=== PATIENT | male | born 1940 | race Caucasian/White ===

== ENCOUNTER 2017-12-15 16:41 | Inpatient (IN) | payer MEDICARE, OTHER ==
[~2017-12-15] VITALS: Ht 185.4 cm; Wt 76.7 kg
[~2017-12-15 16:41] MED LIST: ACARBOSE100 MG PO; ALLOPURINOL100 MG PO; AMIODARONE HCL200 MG PO; ASPIRIN81 MG PO; ATORVASTATIN CA20 MG PO; CALCITRIOL0.25 MCG PO; CATAPRES-TTS 21 EACH PO; CENTRUM SILVER1 EAC1 PO; CINNAMON500 MG PO; CLONIDINE HCL0.1 MG PO; CLONIDINE HCL0.2 MG PO; COQ-10100 MG PO; CoQ10 PO; DIALYVITE TABL1 EACH PO; DIGOXIN125 MCG PO; DILTIAZEM ER240 MG PO; DULCOLAX10 MG PR; FERROUS SULFAT325 MG PO; FLAXSEED OIL1000 MG PO; FLUOROURACIL 5% TOP; FUROSEMIDE20 MG PO; GABAPENTIN100 MG PO; GABAPENTIN300 MG PO; GLIPIZIDE10 MG PO; GLYBURIDE5 MG PO; HYDRALAZINE HC100 MG PO; HYDRALAZINE HCL25 MG PO; HYDROCODON-ACE1 EAC9 PO; ISOSORBIDE DINI20 MG PO; LACTULOSE20 GM/30 M PO; LANTUS100 UNIT/1 SQ; LANTUS100 UNITS/ SC; LEVEMIR100 UNIT/1 SC; LEVEMIR100 UNIT/1 SQ; LEVODOPA PO; LISINOPRIL5 MG PO; MECLIZINE HCL12.5 MG PO; METAMUCIL1 EACH; METOPROLOL TART25 MG PO; METOPROLOL TART50 MG PO; MINOXIDIL2.5 MG PO; MIRALAX17 GM PO; NIFEDIPINE XL30 MG PO; NYSTATIN15 G2 TP; OMEGA 3 FISH O1 EACH PO; PANTOPRAZOLE SO40 MG PO; PLAVIX300 MG PO; PLAVIX75 MG PO; PRIMIDONE50 MG PO; PROBIOTIC COMP1 EAC1 PO; RENAGEL800 MG PO; VITAMIN C500 MG PO; VITAMIN D-32000 UNIT PO; VOLTAREN100 GM TOP; ZINC OXIDE56.7 GM TP
--- OUTSIDE RECORDS SUMMARY | 2017-12-15 16:45 | XMS REPORT ---
Author [facility] Address Unknown Phone Unavailable Care Team Providers Care Form [employer] Forms Name Role Phone VALE GARCIA Unavailable Unavailable OSCAR DEVLIN Unavailable Unavailable Problems This patient has no known problems. Allergies, Adverse Reactions, Alerts This patient has no known allergies or adverse reactions. Medications This patient has no known medications. Results Test Description Test Time Test Comments Text Results Atomic Results Result Comments CHEST SINGLE (PORTABLE) [place] [address] Patient Name: MAXI ROOT MR #: [id number] : 1940 Age/Sex: 77/M Req #: [id number] [facility] Physician: Ordered by: VALE GARCIA MD Report #: [id number] Location: OR Room/Bed: Procedure: [id number] DX/CHEST SINGLE (PORTABLE) Exam Date: 09/09/17 Exam Time: 1005 REPORT STATUS: Signed PROCEDURE: CHEST SINGLE (PORTABLE) TECHNIQUE: Portable AP chest INDICATION: Preoperative evaluation COMPARISON: [facility], , CHEST 2 VIEWS, 06/30/2017, 20:29. FINDINGS: Right subclavian dialysis catheter tips in the SVC. No sizable pleural effusions. Bilateral interstitial opacity with central vascular enlargement and cardiomegaly. Intact skeleton. Right upper extremity amputation. CONCLUSION: Cardiomegaly and mild interstitial edema. Dictated by: Soila Floyd M.D. on 09/09/2017 at 10:29 Electronically approved by: Soila Floyd M.D. on 09/09/2017 at 10:29 Dictated By: SOILA FLOYD MD 1029 Transcribed By: SUZIE on 09/09/17 1029 COPY TO: VALE GARCIA MD CTA ABD/PELVIS [facility] [address] [place] [address] Patient Name: MAXI ROOT MR #: [id number] : 1940 Age/Sex: 77/M Req #: [id number] Adm Physician: OSCAR DEVLIN MD Ordered by: OSCAR DEVLIN MD Report #: [id number] Location: ICU Room/Bed: ICU [facility] Procedure: [id number] CT/CTA ABD/PELVIS Exam Date: 07/07/17 Exam Time: 1545 REPORT STATUS: Signed PROCEDURE: CTA ABD/ PELVIS WITH CONTRAST COMPARISON: [facility], CT, CT ABDOMEN/ PELVIS W, 06/17/2017, 16:10. INDICATIONS: ISCHEMIC BOWEL TECHNIQUE: Multi-detector CT spiral images were obtained after the administration of 60 intravenously. For optimization of anatomic evaluation, multiplanar and volume rendering reconstructions were performed. Advanced 3-D off-line postprocessing were performed on a dedicated stand-alone workstation under the direct supervision of the interpreting physician. DLP: 520.33 mGy-cm FINDINGS: Aortic Measurements at the level of the: Diaphragmatic hiatus: 2.6 cm Celiac axis: 2.3 cm Superior Mesenteric Artery: 2.2 cm Renal Arteries: 2.1 cm Above the iliac bifurcation: 1.0 cm There is moderate circumferential calcified plaque throughout most of the abdominal aorta. The largest calcified plaque is seen. The right common iliac artery, causing approximately 40% luminal reduction (series 3, image 105). There is no aortic aneurysm or dissection. The celiac, superior mesenteric, inferior mesenteric, and renal arteries are patent, without filling defects . Mild calcified atherosclerotic plaque proximal SMA (sagittal image 82) without significant narrowing. Focal atherosclerotic plaque in the mid to distal SMA (series 3, image 79 and sagittal image 8), results in approximately 25-30 % luminal reduction. Mild to moderate atherosclerotic plaque at the origin of the right renal, which results in 50% luminal reduction (series 3, image 63, and coronal image 51) area. Mild atherosclerotic plaque at the origin of the left renal artery, with likely greater than 50% reduction at the ostium. Pelvic vessels: Right common iliac calcified plaque results in 50% luminal reduction (series 3, image 105) . Bilateral common iliacs, external, and internal iliacs are patent. Prominent calcified plaque in the left external iliac (series 3, image 176), which results in at least 50% luminal reduction. Right common iliac artery: 1.4 cm Left common iliac artery: 1.2 cm Abdominal and Pelvic soft-tissues and organs: Lung bases: Unchanged small to moderate bilateral pleural effusions and compressive atelectasis of the lower lobes. Stable cardiomegaly with enlargement of the right atrium. Liver: No focal lesions. Normal contour. Biliary: No biliary ductal dilation. Gallbladder is decompressed. Spleen: No splenomegaly. Pancreas: No ductal dilation or focal lesions. Adrenal Glands: Stable bilateral thickening. Kidneys: No hydronephrosis or obstruction. No stones or solid, enhancing lesions GI: Persistent moderate wall thickening of approximately 5-6 cm segment of the ascending colon at the hepatic flexure with questionable shouldering (series 3, images 57-69 and coronal image 30), with mild surrounding stranding. No bowel dilation. Rest of the bowel shows no wall thickening. Peritoneum/ Retroperitoneum: Interval decrease in abdominal free fluid. There is residual fluid inferior to the right hepatic lobe and lateral to the above- described segment of colon (for example series 3, image 77 and coronal image 31), as well as in the perihepatic space (series 3, image 25, and trace fluid in the anterior and posterior pelvis (series 3, image 151 and 161). Pelvic organs: Bladder is decompressed and grossly unremarkable. Prostate is enlarged. Bones: No acute bony abnormalities. CONCLUSION: 1. Moderate circumferential calcified plaque throughout most of the abdominal aorta and iliac vessels. Aorta, celiac trunk, SMA, VENECIA,, bilateral renal, and pelvic arteries are patent. The focal plaque in the mid to distal SMA results in approximately 25-30 % luminal reduction, however, the vessel remains patent. 2. Findings in the ascending colon at the hepatic flexure are worrisome for underlying neoplasm (such as adenocarcinoma), rather than ischemic bowel given the focal findings and short segment involvement, as well as patency of the major vessels. Inflammatory or infectious colitis are also less likely given the short segment involvement and patient's age (for inflammatory bowel disease). Recommend colonoscopy for further evaluation. 3. Stable small to moderate bilateral pleural effusions and compressive atelectasis of the lower lobes. Stable cardiomegaly. Kwaku Mcgregor M.D. Dictated by: Kwaku Mcgregor M.D. on 07/07/2017 at 17:07 Electronically approved by: Kwaku Mcgregor M.D. on 07/07/2017 at 17 :07 Dictated By: KWAKU MCGREGOR MD 06 Transcribed By: SUZIE on 07/07/171706 COPY TO: OSCAR DEVLIN MD ABDOMEN LIMITED [place] [address] Patient Name: MAXI ROOT MR #: [id number] : 1940 Age/Sex: 77/M Req # : [id number] Adm Physician: OSCAR DEVLIN MD Ordered by: OSCAR DEVLIN MD Report #: [id number] Location: MED/SURG3 Room/Bed: [facility] _ Procedure: [id number] US/US ABDOMEN LIMITED Exam Date: Exam Time: REPORT STATUS: Signed PROCEDURE: LIMITED ABDOMINAL ULTRASOUND COMPARISON: CT scan of the abdomen and pelvis dated 06/30/2017 INDICATIONS: Ascites FINDINGS: Survey study to evaluate prior to an ordered paracentesis. There is a minimal amount of free fluid in the abdomen. Amount does not warrant a paracentesis at this time. CONCLUSION: Minimal ascites. Sofía Benjamin D.O. Dictated by: Sofía Benjamin D.O. on 07/01/2017 at 13:06 Electronically approved by: Sofía Benjamin D.O. on 07/01/2017 at 13:06 Dictated By: SOFÍA BENJAMIN DO 1306 Transcribed By: SUZIE on 07/01/17 1306 COPY TO: OSCAR DEVLIN MD CHEST 2 VIEWS [place] [address] Patient Name: MAXI ROOT MR #: [id number] : 1940 Age/Sex: 77/M Req #: [id number] Adm Physician: OSCAR DEVLIN MD Ordered by: VALE MELENDEZ MD Report #: [id number] Location: [facility] Room/Bed: [facility] Procedure: [id number] DX/CHEST 2 VIEWS Exam Date: 06/30/17 Exam Time: 2019 REPORT STATUS: Signed EXAMINATION: CHEST 2 VIEWS INDICATION: Shortness of breath COMPARISON: 2016 FINDINGS: TUBES and LINES: Right IJ central line catheter is stable in good position with tip overlying the atrial caval junction. New left IJ dual-lumen dialysis catheter with tip overlying the atriocaval junction. LUNGS: Lungs are not well inflated. There are bibasilar atelectasis. There is perihilar interstitial opacities, consistent with interstitial edema. PLEURA: Small bilateral pleural effusions right greater than left. HEART AND MEDIASTINUM: Cardiac size is moderately enlarged. The aorta is ectatic with atherosclerotic calcifications. BONES AND SOFT TISSUES: No acute osseous lesion. Soft tissues are unremarkable. UPPER ABDOMEN: No free air under the diaphragm. IMPRESSION: Findings are compatible with fluid overload/pulmonary edema and pleural effusions. Signed by: Dr. Raji Steinberg M.D. on 06/30/2017 9:16 PM Dictated By: RAJI HUTCHISON MD 15 Transcribed By: VEENA on 06/30/172115 COPY TO: VALE MELENDEZ MD CT ABDOMEN/PELVIS WO [place] [address] Patient Name: MAXI ROOT MR #: [id number] : 1940 Age/Sex: 77/M Req # : [id number] Adm Physician: OSCAR DEVLIN MD Ordered by: OSCAR DEVLIN MD Report #: [id number] Location: MED/SURG3 Room/Bed: [facility] _ Procedure: [id number] CT/CT ABDOMEN/PELVIS WO Exam Date: 06/30/17 Exam Time: 2099 REPORT STATUS: Signed EXAM: CT Abdomen and Pelvis WITHOUT contrast INDICATION: Suspected peritonitis COMPARISON: 06/17/2017 TECHNIQUE: Abdomen and pelvis were scanned utilizing a multidetector helical scanner from the lung base to the pubic symphysis without administration of IV contrast. Absence of intravenous contrast decreases sensitivity for detection of focal lesions and vascular pathology. Coronal and sagittal reformations were obtained. Routine protocol was performed. IV CONTRAST: None. ORAL CONTRAST: Gastrografin RADIATION DOSE: Total DLP: 691.7 mGy*cm Estimated effective dose: (DLP x 0.015 x size factor) mSv COMPLICATIONS: None FINDINGS: LINES and TUBES: Interval removal of peritoneal dialysis catheter LOWER THORAX: Interval increase in right pleural effusion. Stable left pleural effusion. Increased confluent airspace opacity in the right lower lobe compatible with developing pneumonia on a background of atelectasis. Extensive three-vessel coronary artery disease HEPATOBILIARY: No focal hepatic lesions. No biliary ductal dilation. GALLBLADDER: No radio-opaque stones or sludge. No wall thickening. SPLEEN: No splenomegaly. PANCREAS: No focal masses or ductal dilatation. ADRENALS: Bilateral adrenal hyperplasia is stable left greater than right. KIDNEYS/URETERS: No hydronephrosis. No cystic or solid mass lesions. No stones. GI TRACT: No abnormal distention, wall thickening, or evidence of bowel obstruction. Appendix is not clearly identified. There is however no fat stranding or adenopathy in the right lower quadrant to suggest appendicitis. PELVIC ORGANS/BLADDER: Unremarkable. LYMPH NODES: No lymphadenopathy. VESSELS: There is severe atherosclerotic disease in the aorta and major arterial branches. PERITONEUM / RETROPERITONEUM: There is stable, moderate of amount of free fluid in the abdomen and pelvis. BONES: There are stable degenerative changes in the lumbar spine. SOFT TISSUES: There is mild diffuse anarsarca. IMPRESSION: 1. Interval removal of peritoneal dialysis catheter. 2. No significant interval change in volume of ascites, pleural effusions and mild anasarca consistent with fluid overload. 3. Coronary artery disease. 4. Mild adrenal hyperplasia bilaterally Signed by: Dr. Raji Steinberg M.D. on 06/30/2017 9:30 PM Dictated By: RAJI HUTCHISON MD 29 Transcribed By: VEENA on 06/30/172129 COPY TO: OSCAR DEVLIN MD
[2017-12-15 17:36] LABS: BASOPHILS % 0.2 % (0.0-1.0); EOSINOPHILS # (AUTO) 0.3 (0.0-0.4); EOSINOPHILS % 2.4 % (0.0-6.0); HEMATOCRIT 23.7 % (38.2-49.6); LYMPHOCYTES # (AUTO) 0.7 (1.0-3.2); LYMPHOCYTES % 6.2 % (18.0-39.1); MEAN CORPUSCULAR HEMOGLOBIN 31.9 pg (28-32); MEAN CORPUSCULAR HGB CONC 31.6 g/dL (31-35); MEAN CORPUSCULAR VOLUME 100.9 fL (81-99); MONOCYTES # (AUTO) 0.7 (0.2-0.8); MONOCYTES % 6.8 % (4.4-11.3); NEUTROPHILS # (AUTO) 9.1 (2.1-6.9); PLATELET COUNT 350 x10e3/uL (140-360); RED BLOOD COUNT 2.35 x10e6/uL (4.3-5.7); RED CELL DISTRIBUTION WIDTH 17.2 % (11.7-14.4)
[2017-12-15 17:38] LABS: HEMOGLOBIN 7.5 g/dL (14.0-18.0)
[2017-12-15 17:42] LABS: INR 0.9; PROTHROMBIN TIME 12.6 seconds (11.9-14.5)
[2017-12-15 17:43] LABS: PARTIAL THROMBOPLASTIN TIME 33.1 seconds (23.8-35.5)
--- NOTE | 2017-12-15 17:44 | Diagnostic Imaging Report ---
PROCEDURE: A single AP view of the chest. COMPARISON: Chest radiograph 09/09/2017 INDICATIONS: COUGH, CONGESTION FINDINGS: Lines/tubes: Stable right subclavian dialysis catheter. Lungs: The lungs are well inflated. Bilateral interstitial opacities and central vascular congestion. Pleura: There is no pleural effusion or pneumothorax. Heart and mediastinum: Stable cardiomegaly allowing for differences in lung volumes. Diffuse aortic calcifications. Bones: No acute bony abnormality. Calcific density projecting adjacent to the left humeral head likely represents rotator cuff calcific tendinosis. Appearance of the right humeral head likely related to amputation which is currently out of the field of view. IMPRESSION: Cardiomegaly with mild interstitial edema. Dictated by: Man Tejada M.D. on 12/15/2017 at 17:53 Electronically approved by: Man Tejada M.D. on 12/15/2017 at 17:53
[2017-12-15 17:53] LABS: ALBUMIN 3.1 g/dL (3.5-5.0); ALBUMIN/GLOBULIN RATIO 0.7 (0.8-2.0); CALCIUM 8.5 mg/dL (8.4-10.2); CREATININE, SERUM 3.57 mg/dL (0.72-1.25)
[2017-12-15 18:00] LABS: CREATINE KINASE MB 2.7 ng/mL (0.00-5.00)
[2017-12-15] MEDS ORDERED: VANCOMYCIN 1GM/NS 250 ML 250 ML IV ONE (18:30)
[2017-12-15] MEDS ORDERED: SODIUM CHLORIDE FLUSH 10 ML SYR INJ PRN (18:45)
[2017-12-15] MEDS ORDERED: ONDANSETRON HCL INJ 2 MG/ML VIAL IV PRN (18:45)
[2017-12-15] MEDS ORDERED: IBUPROFEN 600 MG TAB PO PRN (18:45)
[2017-12-15] MEDS: ACETAMINOPHEN 325 MG TAB PO PRN (18:55)
--- NOTE | 2017-12-15 20:29 | Diagnostic Imaging Report ---
EXAMINATION: CT scan of the chest without contrast. TECHNIQUE: Spiral CT images of the chest were performed from the lung apices to the level of the adrenal glands. No intravenous contrast was administered . Coronal and sagittal reformatted images were obtained. COMPARISON: Chest 2 views, 06/30/2017 CLINICAL HISTORY:Cough and fever, shortness of breath, weakness, history of pulmonary edema DISCUSSION: ABSENCE OF INTRAVENOUS CONTRAST DECREASES SENSITIVITY FOR DETECTION OF FOCAL LESIONS AND VASCULAR PATHOLOGY. LINES/TUBES: Double lumen right subclavian catheter with distal tip in the distal SVC. LUNGS AND AIRWAYS: Bilateral lower lobe compressive atelectasis, left greater than right. 5 mm mildly spiculated nodular lesion in the right upper lobe (series 3, image 36). No new pulmonary nodules. No masses or consolidation. Airways are clear, without bronchial lesions. PLEURA: Small bilateral pleural effusions, left greater than right. HEART AND MEDIASTINUM: Thyroid is unremarkable. Moderate cardiomegaly. Extensive atherosclerotic calcification of the aortic valves, coronary arteries and thoracic aorta. Aorta is nonaneurysmal. Main pulmonary artery is enlarged, measuring 3.4 cm LYMPH NODES: There is no mediastinal, hilar or axillary lymphadenopathy. ABDOMEN: Limited nonenhanced views of the upper abdomen show no abnormality within the visualized liver, spleen, pancreas. Thickening of the left adrenal gland without discrete focal lesions. BONES AND SOFT TISSUES: No aggressive lytic lesions. Degenerative disc changes in the thoracic spine. Soft tissues grossly unremarkable. IMPRESSION: 1. Small bilateral pleural effusions, left greater than right with associated bilateral lower lobe compressive atelectasis. In the setting of moderate cardiomegaly, this may be secondary to CHF. No overt pulmonary edema. 2. 5 mm indeterminate nodular lesion in the right upper lobe with likely higher risk of bronchogenic neoplasm given its spiculated appearance. Recommend follow-up chest CT in 3-6 months to document stability. Signed by: Dr. Avila Mcgregor M.D. on 12/15/2017 8:26 PM
[2017-12-15] MEDS ORDERED: NITROGLYCERIN0.4 MG SL (20:37)
[2017-12-15] MEDS ORDERED: PLAVIX75 MG PO (20:37)
[2017-12-15] MEDS ORDERED: PANTOPRAZOLE SO40 MG PO (20:37)
[2017-12-15] MEDS ORDERED: CARVEDILOL12.5 MG PO (20:37)
[2017-12-15] MEDS ORDERED: CLONIDINE HCL0.1 MG PO (20:37)
[2017-12-15] MEDS ORDERED: ASPIRIN EC81 MG PO (20:37)
[2017-12-15 22:05] VITALS: BP 143/59
[2017-12-15 22:20] VITALS: BP 143/62
[2017-12-16 01:31] VITALS: BP 143/62
[2017-12-16 04:00] VITALS: BP 180/82
[2017-12-16] MEDS ORDERED: SODIUM CHLORIDE 0.9% 250ML 250 ML IV ONE (06:00)
[2017-12-16] MEDS: CARVEDILOL 12.5 MG TAB PO SCH ×2 (06:20→17:00)
[2017-12-16] MEDS: CLONIDINE HCL 0.1 MG TAB PO SCH ×3 (06:25→22:00)
[2017-12-16] MEDS ORDERED: FUROSEMIDE INJ 10 MG/ML 4 ML VIAL IV STA (06:30)
[2017-12-16 07:10] LABS: BASOPHILS % 0.2 % (0.0-1.0); EOSINOPHILS # (AUTO) 0.2 (0.0-0.4); EOSINOPHILS % 1.1 % (0.0-6.0); HEMATOCRIT 26.1 % (38.2-49.6); HEMOGLOBIN 8.2 g/dL (14.0-18.0); LYMPHOCYTES # (AUTO) 4.2 (1.0-3.2); LYMPHOCYTES % 23.2 % (18.0-39.1); MEAN CORPUSCULAR HEMOGLOBIN 31.9 pg (28-32); MEAN CORPUSCULAR HGB CONC 31.4 g/dL (31-35); MEAN CORPUSCULAR VOLUME 101.6 fL (81-99); MONOCYTES # (AUTO) 1.8 (0.2-0.8); MONOCYTES % 9.7 % (4.4-11.3); NEUTROPHILS # (AUTO) 11.9 (2.1-6.9); NEUTROPHILS % 65.2 % (38.7-80.0); PLATELET COUNT 468 x10e3/uL (140-360); RED BLOOD COUNT 2.57 x10e6/uL (4.3-5.7); RED CELL DISTRIBUTION WIDTH 17.7 % (11.7-14.4)
[2017-12-16 07:33] LABS: ALBUMIN 3.3 g/dL (3.5-5.0); ALBUMIN/GLOBULIN RATIO 0.7 (0.8-2.0); ANION GAP 18.6 mmol/L (8-16); CALCIUM 9.3 mg/dL (8.4-10.2); CREATININE, SERUM 5.14 mg/dL (0.72-1.25); POTASSIUM 4.6 mmol/L (3.5-5.1)
[2017-12-16 07:57] VITALS: BP 142/51
[2017-12-16] MEDS: HYDRALAZINE HCL 25 MG TAB PO SCH ×3 (08:00→21:00)
[2017-12-16] MEDS ORDERED: CARVEDILOL 12.5 MG TAB PO SCH (09:00)
[2017-12-16] MEDS ORDERED: CLONIDINE HCL 0.1 MG TAB PO SCH ×2 (09:00→14:00)
[2017-12-16] MEDS: INSULIN REGULAR, HUMAN 100 UNIT/1 ML 3ML VIAL SQ SCH ×4 (09:48→21:00)
--- NOTE | 2017-12-16 10:57 | Consultation ---
DATE OF CONSULTATION: INFECTIOUS DISEASE CONSULTATION This patient is well known to infectious disease. He is a 77-year-old male on hemodialysis, apparently has not been feeling good for the past couple of days. He has been congested with some cough. He had dialysis yesterday. After dialysis, he really felt weak and diaphoretic and lethargic. He apparently called Dr. Preciado's office. On brief visit with Dr. Preciado, he was given some oral antibiotics. However, he came in last night secondary to worsening of his weakness. He had a gram of vancomycin since admission. He feels better now this morning after I visited with him. is in the room. Most of this information was provided by the . PAST MEDICAL HISTORY: Includes end-stage renal disease. He is on dialysis. He has a history of GI bleed, multiple hospitalizations with history of colitis, diabetes. He was on peritoneal dialysis at some point. It got infected and it was removed. ALLERGIES: HE HAS NO DRUG ALLERGIES. LABORATORY STUDIES: As mentioned above, the patient is on dialysis. His white count is 18.17, hemoglobin 8.2 and platelets are 468,000. Influenza A and B screen antigen was negative. His AST was 22, ALT 25, ALP 128. CK-MB was 2.7. Troponin I was 0.056. RADIOLOGY STUDIES: Had a chest x-ray which suggested cardiomegaly with a mild interstitial edema. He had a CT of the chest, which showed small bilateral pleural effusion, left greater than the right associated with bilateral lower lobe compressive atelectasis. CHF was one of the concerns in the differential. CT of the chest with no significant pulmonary edema. He has a 5 mm indeterminate nodule lesion in the right upper lobe with likely high risk for bronchiogenic neoplasm. MICROBIOLOGY: Blood culture is pending. MEDICATIONS: Have been reviewed. As far as the infectious disease point of view, had a gram of vancomycin on admission. Concerned that the patient is on dialysis. REVIEW OF SYSTEMS: Feels better since he said he got good sleep. Diaphoresis is much better. He complains that his blood pressure was up a little bit, but it got improved after the medication was given. No nausea, vomiting, fever, chills, chest pain, or shortness of breath. PHYSICAL EXAMINATION VITALS: Temperature 97.7, maximum temp was 100.3 this admission, pulse 103, respirations 24, blood pressure 142/51. GENERAL: Comfortable, alert and oriented times 3 in bed. Very pleasant. CV: S1 and S2. CHEST: Equal expansion. No acute distress. Decreased breath sounds. ABDOMEN: Soft and nontender. Bowel sounds positive in 4 quadrants. No distention. HEENT: Moist. Not pale. No cyanosis. EXTREMITIES: Moves all. No significant edema noted. ASSESSMENT AND PLAN: A 77-year-old male with complicated past medical history and not feeling well the past 2-3 days with congestion and weakness. Already had a gram of vancomycin. Restart cefepime. Allergies noted. The patient is supposed to get another round of dialysis today. Monitor the patient throughout the hospitalization. His white count is up a little bit. Will recheck for tomorrow. He is going to be on vancomycin and cefepime until we get more information, and then will taper the antibiotics as more information comes in. This case was discussed with Dr. Robledo in detail as outlined. I want to thank you for this consult. DICTATED BY MIRIAM HODGES Job#: [id number] MANDY
[2017-12-16 11:59] VITALS: BP 121/83
[2017-12-16] MEDS: CEFEPIME HCL 1 GM VIAL IV SCH (12:00)
[2017-12-16] MEDS ORDERED: VANCOMYCIN 750MG/NS 150ML IVPB 150 ML IV SCH (12:00)
[2017-12-16] MEDS ORDERED: MECLIZINE HCL 12.5 MG TAB PO PRN (13:45)
[2017-12-16] MEDS ORDERED: NITROGLYCERIN 0.4 MG SUBL SL PRN (13:45)
[2017-12-16] MEDS ORDERED: INULIN PO SCH (15:00)
[2017-12-16] MEDS: LACTOBACILLUS ACIDOPHILUS CAPSULE PO SCH ×2 (15:00→21:30)
[2017-12-16] MEDS: GABAPENTIN 100 MG CAP PO SCH ×2 (15:00→21:00)
[2017-12-16] MEDS: METOPROLOL TARTRATE 25 MG TAB PO SCH ×2 (15:00→21:00)
[2017-12-16] MEDS ORDERED: FOS PO SCH (15:00)
[2017-12-16] MEDS ORDERED: LACTOBACILLUS CMB PO SCH (15:00)
[2017-12-16] MEDS ORDERED: [UNRECOGNIZED DRUG - OTHER] PO SCH (15:00)
--- NOTE | 2017-12-16 15:05 | History and Physical ---
PRIMARY CARE PHYSICIAN: Dr. Orion Preciado. CHIEF COMPLAINT: Increasing shortness of breath, pulmonary edema, fever, chills and generalized weakness. HISTORY OF PRESENT ILLNESS: Patient is a 77-year-old male baseline chronically ill with end-stage renal disease on dialysis. Patient also has systolic dysfunction congestive heart failure. He came to the office a few days ago with increasing shortness of breath, fever and bronchitis. Patient basically was given antibiotics and subsequently went home. The patient did not improve. As a matter of fact, at dialysis, the patient was having increasing shortness of breath even post dialysis. He developed fever. Subsequently he went to the emergency room. Here, the patient also has fever as well. Chest x-ray showed pulmonary edema. The patient is otherwise stable with some dialysis but increasing shortness of breath, fever and chills. PAST MEDICAL HISTORY 1. Diabetes, type 2, on insulin therapy. 2. End-stage renal disease on dialysis. 3. Hypertension. 4. History of ischemic colitis. 5. History of peritonitis that was resolved. 6. Chronic hypertension. 7. Congestive heart failure. 8. History of right knee surgery. 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 10. Bilateral carotid and left femoral artery intervention. 11. Dialysis catheter placement. 12. Parkinson syndrome. 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 14. Benign tremor. 15. Diabetic neuropathy. 16. Peripheral vascular disease. 17. Hyperlipidemia. 18. Atrial fibrillation. SOCIAL HISTORY: The patient lives with his spouse. He does not smoke or use alcohol. He has very good family support. ALLERGIES: NO KNOWN ALLERGIES. HOME MEDICATIONS: Amiodarone, aspirin, Lipitor, calcitriol, Coreg, clonidine, Plavix, digoxin, gabapentin, hydralazine, insulin, isosorbide dinitrate, metoprolol, nifedipine, Protonix, primidone, levodopa. PHYSICAL EXAMINATION GENERAL EXAM: The patient is ill but not in any distress. VITAL SIGNS: Temperature T-max was 100.3, blood pressure 118/55. Pulse rate is 86. Respirations 22. HEENT: Normocephalic, atraumatic, anicteric. NECK: Supple grossly. PULMONARY: Diminished breath sounds bilaterally with coarses and rales. CARDIOVASCULAR: Atrial fibrillation, rate controlled. ABDOMEN: Soft. EXTREMITIES: No gross cyanosis. Positive edema. NEUROLOGIC: No focal deficit other than chronic tremor and functional dementia. LABS: WBC is 18, hemoglobin 8.2, hematocrit 26, platelets 468. Chemistries: Sodium is 136, potassium 4, chloride 98, bicarb 27,BUN is 34, creatinine 3.5. Glucose 191. BNP is 1216. Coagulation is normal. Influenza A and B are negative. IMAGING: CT chest showed the patient has bilateral pleural effusions, left greater than right, with atelectasis. Moderate cardiomegaly. Pulmonary edema. IMPRESSION 1. [id number] systolic dysfunction congestive heart failure. 2. Pulmonary edema. 3. Community-acquired pneumonia. 4. Fever and shortness breath. 5. End-stage renal disease on dialysis. 6. Multiple baseline problems. 7. Leukocytosis. PLAN: Admit the patient. Antibiotics. Home medications resumed. Dialysis. Needs packed red blood cell transfusion due to the patient's symptomatic shortness of breath even at rest. Patient is otherwise stable. Continue with treatment at this time. Please review the medications on order. Job#: [id number]
[2017-12-16] MEDS: NYSTATIN 15 GM POWDER UD BTL TP SCH ×2 (15:30→21:30)
[2017-12-16] MEDS ORDERED: SODIUM CHLORIDE 0.9% 1000ML 2,000 ML ONE (15:52)
[2017-12-16] MEDS ORDERED: HEPARIN SOD (PORCINE) 5,000 UNIT/ML VIAL SC PRN (16:00)
[2017-12-16] MEDS ORDERED: HEPARIN SOD (PORCINE) 1000 UNIT/ML SDV IV PRN (16:15)
[2017-12-16 16:55] VITALS: BP 155/74
[2017-12-16] MEDS: ISOSORBIDE DINITRATE 20 MG TAB PO SCH (17:00)
[2017-12-16] MEDS: PRIMIDONE 50 MG TAB PO SCH ×2 (17:00→23:05)
[2017-12-16] MEDS: SEVELAMER CARBONATE 800 MG TAB PO SCH (17:00)
[2017-12-16] MEDS ORDERED: INSULIN DETEMIR U SC SCH (17:00)
--- NOTE | 2017-12-16 17:12 | Consultation ---
DATE OF CONSULTATION: PULMONARY/CRITICAL CARE CONSULTATION REFERRING PHYSICIAN: Dr. Orion Preciado. CHIEF COMPLAINT: Dyspnea and congestion in a patient with dialysis. HISTORY OF PRESENT ILLNESS: The patient is a 77-year-old man with a history of end-stage renal disease. He receives hemodialysis on a regular basis. In July of 2017, he required hospitalization at [facility] for ischemic colitis, rapid atrial fibrillation, and some congestive heart failure. The patient reports some dyspnea and fatigue for about 2 to 3 days prior to admission. He went for his dialysis yesterday and felt better. That evening, he started having more shortness of breath and congestion. He came to the emergency department. He was started on some antibiotics along with some diuretics and noted some improvement. PAST MEDICAL HISTORY 1. End-stage renal disease, requiring dialysis. 2. Ischemic colitis. 3. Diabetes. 4. Atrial fibrillation with no other medical problems. PAST SURGICAL HISTORY 1. History of a peritoneal dialysis catheter that had to be removed because of subsequent infection. 2. Status post hemodialysis graft placement. SOCIAL HISTORY: The patient quit smoking in 2006. He was exposed to some asbestos in the 70s when he worked at the [employer] [facility]. FAMILY HISTORY: Family history is noncontributory. REVIEW OF SYSTEMS: He did not note any fevers at home, although he has had some chills here. He does not complain of headache. There is no facial pain or congestion. He has no neck pain. He is not complaining of any chest pain. He has had dyspnea and cough. He had congestion with cough productive of small amounts of phlegm. He has no abdominal pain. There is no nausea or vomiting. He has no leg edema. PHYSICAL EXAMINATION VITAL SIGNS: The patient is afebrile. He is saturating 99% on 3 liters. Blood pressure 121/83. HEENT: No facial swelling or erythema. The nasal mucosa is normal. The oropharynx is normal. LYMPHATIC: No submandibular, cervical, or supraclavicular adenopathy. CARDIAC: Regular rate and rhythm with normal S1 and S2. There are no murmurs or rubs. LUNGS: Auscultation of the lungs reveals rhonchus breath sounds bilaterally. There is no wheezing. ABDOMEN: Soft and nontender. There is no rebound or guarding. EXTREMITIES: No leg edema or calf tenderness. There is no cyanosis or clubbing. NEUROLOGIC: No focal abnormalities. LABORATORY DATA: White blood cell count is 18.2 with hemoglobin of 8.2. The platelet count is 468. The creatinine is 5.14, which is his baseline. PT and PTT are normal. Rapid influenza testing is negative. RADIOGRAPHIC DATA: Chest x-ray shows small bilateral pleural effusions, left greater than right. There is some cardiomegaly suggesting fluid overload. Patient also has a 5-mm nodule in the right upper lobe with some spiculation. IMPRESSION 1. Pulmonary edema secondary to renal disease and cardiac disease. 2. Lower respiratory tract infection. 3. A 5-mm nodule in the right upper lobe of unclear significance. RECOMMENDATIONS The nodule in the right upper lobe is too small for biopsy. I recommend repeat CT scan in 3 months to assess for stability. Panculture. Antibiotics. Continue dialysis as scheduled. Patient may need treatment for his anemia. Job#: [id number] SAK
[2017-12-16] MEDS: INSULIN DETEMIR 100 UNIT/ML PEN SQ SCH (17:30)
[2017-12-16 20:00] VITALS: BP 92/46
[2017-12-16] MEDS: ATORVASTATIN 20 MG TAB PO SCH (21:30)
[2017-12-16] MEDS ORDERED: SODIUM CHLORIDE 0.9% 250ML 250 ML ONE (21:53)
[2017-12-17] VITALS (7 sets, daily range): BP systolic 122–213; BP diastolic 36–78
[2017-12-17] MEDS: CLONIDINE HCL 0.1 MG TAB PO SCH ×4 (06:03→22:31)
[2017-12-17] MEDS: ACETAMINOPHEN 325 MG TAB PO PRN ×4 (06:03→22:42)
[2017-12-17] MEDS: CARVEDILOL 12.5 MG TAB PO SCH ×2 (07:00→17:30)
[2017-12-17] MEDS: INSULIN REGULAR, HUMAN 100 UNIT/1 ML 3ML VIAL SQ SCH ×4 (07:30→21:00)
[2017-12-17] MEDS: PRIMIDONE 50 MG TAB PO SCH ×2 (09:00→16:19)
[2017-12-17] MEDS ORDERED: PRIMIDONE 50 MG TAB PO SCH (09:00)
[2017-12-17] MEDS: CEFEPIME HCL 1 GM VIAL IV SCH (09:00)
[2017-12-17] MEDS: METOPROLOL TARTRATE 25 MG TAB PO SCH ×3 (09:00→22:32)
[2017-12-17] MEDS: AMIODARONE HCL 200 MG TAB PO SCH (09:00)
[2017-12-17] MEDS: NIFEDIPINE CR 30 MG TAB PO SCH (09:00)
[2017-12-17] MEDS: SEVELAMER CARBONATE 800 MG TAB PO SCH ×3 (09:00→16:19)
[2017-12-17] MEDS: INSULIN DETEMIR 100 UNIT/ML PEN SQ SCH ×2 (09:00→17:00)
[2017-12-17] MEDS: NYSTATIN 15 GM POWDER UD BTL TP SCH ×3 (09:00→21:00)
[2017-12-17] MEDS: ASPIRIN 81 MG ENTERIC COATED PO SCH (09:00)
[2017-12-17] MEDS: ISOSORBIDE DINITRATE 20 MG TAB PO SCH ×2 (09:00→18:20)
[2017-12-17] MEDS: CALCITRIOL 0.25 MCG CAP PO SCH (10:23)
[2017-12-17] MEDS: CLOPIDOGREL BISULFATE 75 MG TAB PO SCH (10:23)
[2017-12-17] MEDS: GABAPENTIN 100 MG CAP PO SCH ×3 (10:23→20:47)
[2017-12-17] MEDS: LACTOBACILLUS ACIDOPHILUS CAPSULE PO SCH ×3 (10:23→21:50)
[2017-12-17] MEDS: PANTOPRAZOLE SOD 40 MG TABEC PO SCH (10:28)
[2017-12-17] MEDS: HYDRALAZINE HCL 25 MG TAB PO SCH ×3 (11:04→22:32)
[2017-12-17] MEDS: DIGOXIN 0.125 MG TAB PO SCH ×2 (11:04→20:30)
--- NOTE | 2017-12-17 11:58 | Diagnostic Imaging Report ---
Non-tunneled Central Venous Catheter Placement 12/17/2017 Pre-Procedure Diagnosis: Abdominal infection. Post-procedure Diagnosis:Abdominal infection. Service Consultant: Venancio Floyd Investigations Director: None Sedation: None. 1% lidocaine local anesthesia. Radiation Dose:3.491 mGy (cumulative air kerma) Fluoroscopy time:0.1 minutes Estimate blood loss: <5 mL Blood administered: None Complications: None Implants/Grafts: 16 cm 7-Trinidadian 3 lumen CVC Specimen: None Procedure: Informed consent was obtained and the patient positioned supine in the ICU. A timeout was performed, followed by preliminary ultrasound of the right internal jugular vein (see findings below). The right neck was prepped and draped in standard fashion. Using real-time ultrasound guidance a 18 gauge vascular needle was used to access the right internal jugular vein. An image was stored in the electronic medical record. A wire was advanced across the right atrium under fluoroscopy and the needle exchanged for a non-tunneled central venous catheter using standard Salinger technique. The catheter was positioned at the low SVC/superior atrial-caval junction under fluoroscopy. At the end of the procedure the catheter was flushed, secured to the skin and a sterile dressing applied. The patient tolerated the procedure well and without immediate complication. Findings: Patent right internal jugular vein as demonstrated by normal ultrasound compressibility. Impression: Successful placement of a non-tunneled right internal jugular central venous catheter using ultrasound guidance. This report was generated with voice-recognition technology. Errors in billiard player can occur. Please interpret accordingly and contact a radiologist if there are any questions regarding the report. Signed by: Dr. Lokesh Floyd M.D. on 12/17/2017 11:55 AM
--- NOTE | 2017-12-17 11:58 | Diagnostic Imaging Report ---
Non-tunneled Central Venous Catheter Placement 12/17/2017 Pre-Procedure Diagnosis: Abdominal infection. Post-procedure Diagnosis:Abdominal infection. Fabric And Textile Factory Worker: Venancio Floyd Painter Spray: None Sedation: None. 1% lidocaine local anesthesia. Radiation Dose:3.491 mGy (cumulative air kerma) Fluoroscopy time:0.1 minutes Estimate blood loss: <5 mL Blood administered: None Complications: None Implants/Grafts: 16 cm 7-Gabonese 3 lumen CVC Specimen: None Procedure: Informed consent was obtained and the patient positioned supine in the ICU. A timeout was performed, followed by preliminary ultrasound of the right internal jugular vein (see findings below). The right neck was prepped and draped in standard fashion. Using real-time ultrasound guidance a 18 gauge vascular needle was used to access the right internal jugular vein. An image was stored in the electronic medical record. A wire was advanced across the right atrium under fluoroscopy and the needle exchanged for a non-tunneled central venous catheter using standard Salinger technique. The catheter was positioned at the low SVC/superior atrial-caval junction under fluoroscopy. At the end of the procedure the catheter was flushed, secured to the skin and a sterile dressing applied. The patient tolerated the procedure well and without immediate complication. Findings: Patent right internal jugular vein as demonstrated by normal ultrasound compressibility. Impression: Successful placement of a non-tunneled right internal jugular central venous catheter using ultrasound guidance. This report was generated with voice-recognition technology. Errors in floor broker can occur. Please interpret accordingly and contact a radiologist if there are any questions regarding the report. Signed by: Dr. Lokesh Floyd M.D. on 12/17/2017 11:55 AM
--- NOTE | 2017-12-17 11:58 | Diagnostic Imaging Report ---
Non-tunneled Central Venous Catheter Placement 12/17/2017 Pre-Procedure Diagnosis: Abdominal infection. Post-procedure Diagnosis:Abdominal infection. Broadcast Meteorologist: Venancio Floyd Adoption Services Manager: None Sedation: None. 1% lidocaine local anesthesia. Radiation Dose:3.491 mGy (cumulative air kerma) Fluoroscopy time:0.1 minutes Estimate blood loss: <5 mL Blood administered: None Complications: None Implants/Grafts: 16 cm 7-Northern Irish 3 lumen CVC Specimen: None Procedure: Informed consent was obtained and the patient positioned supine in the ICU. A timeout was performed, followed by preliminary ultrasound of the right internal jugular vein (see findings below). The right neck was prepped and draped in standard fashion. Using real-time ultrasound guidance a 18 gauge vascular needle was used to access the right internal jugular vein. An image was stored in the electronic medical record. A wire was advanced across the right atrium under fluoroscopy and the needle exchanged for a non-tunneled central venous catheter using standard Salinger technique. The catheter was positioned at the low SVC/superior atrial-caval junction under fluoroscopy. At the end of the procedure the catheter was flushed, secured to the skin and a sterile dressing applied. The patient tolerated the procedure well and without immediate complication. Findings: Patent right internal jugular vein as demonstrated by normal ultrasound compressibility. Impression: Successful placement of a non-tunneled right internal jugular central venous catheter using ultrasound guidance. This report was generated with voice-recognition technology. Errors in assistant production manager can occur. Please interpret accordingly and contact a radiologist if there are any questions regarding the report. Signed by: Dr. Lokesh Floyd M.D. on 12/17/2017 11:55 AM
--- NOTE | 2017-12-17 11:58 | Diagnostic Imaging Report ---
Non-tunneled Central Venous Catheter Placement 12/17/2017 Pre-Procedure Diagnosis: Abdominal infection. Post-procedure Diagnosis:Abdominal infection. Wireless Retail Manager: Venancio Floyd Publishing Director: None Sedation: None. 1% lidocaine local anesthesia. Radiation Dose:3.491 mGy (cumulative air kerma) Fluoroscopy time:0.1 minutes Estimate blood loss: <5 mL Blood administered: None Complications: None Implants/Grafts: 16 cm 7-Malagasy 3 lumen CVC Specimen: None Procedure: Informed consent was obtained and the patient positioned supine in the ICU. A timeout was performed, followed by preliminary ultrasound of the right internal jugular vein (see findings below). The right neck was prepped and draped in standard fashion. Using real-time ultrasound guidance a 18 gauge vascular needle was used to access the right internal jugular vein. An image was stored in the electronic medical record. A wire was advanced across the right atrium under fluoroscopy and the needle exchanged for a non-tunneled central venous catheter using standard Salinger technique. The catheter was positioned at the low SVC/superior atrial-caval junction under fluoroscopy. At the end of the procedure the catheter was flushed, secured to the skin and a sterile dressing applied. The patient tolerated the procedure well and without immediate complication. Findings: Patent right internal jugular vein as demonstrated by normal ultrasound compressibility. Impression: Successful placement of a non-tunneled right internal jugular central venous catheter using ultrasound guidance. This report was generated with voice-recognition technology. Errors in brush hand can occur. Please interpret accordingly and contact a radiologist if there are any questions regarding the report. Signed by: Dr. Lokesh Floyd M.D. on 12/17/2017 11:55 AM
--- NOTE | 2017-12-17 11:58 | Diagnostic Imaging Report ---
Non-tunneled Central Venous Catheter Placement 12/17/2017 Pre-Procedure Diagnosis: Abdominal infection. Post-procedure Diagnosis:Abdominal infection. Rating Clerk: Venancio Floyd Clothes Separator: None Sedation: None. 1% lidocaine local anesthesia. Radiation Dose:3.491 mGy (cumulative air kerma) Fluoroscopy time:0.1 minutes Estimate blood loss: <5 mL Blood administered: None Complications: None Implants/Grafts: 16 cm 7-Jamaican 3 lumen CVC Specimen: None Procedure: Informed consent was obtained and the patient positioned supine in the ICU. A timeout was performed, followed by preliminary ultrasound of the right internal jugular vein (see findings below). The right neck was prepped and draped in standard fashion. Using real-time ultrasound guidance a 18 gauge vascular needle was used to access the right internal jugular vein. An image was stored in the electronic medical record. A wire was advanced across the right atrium under fluoroscopy and the needle exchanged for a non-tunneled central venous catheter using standard Salinger technique. The catheter was positioned at the low SVC/superior atrial-caval junction under fluoroscopy. At the end of the procedure the catheter was flushed, secured to the skin and a sterile dressing applied. The patient tolerated the procedure well and without immediate complication. Findings: Patent right internal jugular vein as demonstrated by normal ultrasound compressibility. Impression: Successful placement of a non-tunneled right internal jugular central venous catheter using ultrasound guidance. This report was generated with voice-recognition technology. Errors in roller presser operator can occur. Please interpret accordingly and contact a radiologist if there are any questions regarding the report. Signed by: Dr. Lokesh Floyd M.D. on 12/17/2017 11:55 AM
--- NOTE | 2017-12-17 13:32 | Consultation ---
DATE OF CONSULTATION: December 16, 2017 REASON FOR CONSULTATION: End-stage renal disease. This 77-year-old male with end-stage renal disease on hemodialysis, Tuesday, , Tuesday was seen on dialysis morning. The patient had chills and rigors. He had blood cultures and he was supposed to receive vancomycin, but the patient received only half of it, and he decided he wanted to go home. The patient went home, was very weak and was febrile, and so he was brought through the emergency room. His chest x-ray demonstrated pulmonary edema. PAST MEDICAL HISTORY: 1. End-stage renal disease. 2. Type 2 diabetes mellitus. 3. Hypertension. 4. History of ischemic colitis. 5. History of peritonitis. 6. Chronic hypertension. 7. Congestive heart failure. 8. Right knee surgery. 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 10. Parkinson syndrome. 11. Functional dementia. 12. Benign tremor. 13. Diabetic neuropathy. 14. Peripheral vascular disease. 15. Hyperlipidemia. 16. Atrial fibrillation. 17. Hemodialysis catheter placement. 18. Bilateral carotid and left femoral artery intervention. ALLERGIES: NO KNOWN DRUG ALLERGIES. MEDICATIONS: Reviewed. SOCIAL HISTORY: No smoking, no alcohol and no drugs. PAST SURGICAL HISTORY: 1. Knee surgery. 2. PT catheter placement and removal. 3. Bilateral carotid and left femoral artery intervention. 4. Hemodialysis catheter placement. PHYSICAL EXAMINATION GENERAL: The patient is alert and following commands. VITAL SIGNS: T-max 100.3, blood pressure 118/55, pulse 86, respirations 22. HEENT: Pupils reactive to light and accommodation. \E\ NECK: No JVD and no bruits. LUNGS: Rhonchi, no rales. HEART: Regular rate and rhythm. No S3, no S4. ABDOMEN: Nontender, nondistended. No hepatosplenomegaly. EXTREMITIES: No cyanosis, clubbing or edema. LABORATORY DATA: Chest x-ray bilateral pleural effusion, left greater than right, atelectasis, moderate cardiomegaly. White count 18, hemoglobin 8.2, hematocrit 26, BUN 34, creatinine 3.5. ASSESSMENT AND PLAN 1. End-stage renal disease on hemodialysis on Tuesday, and Tuesday. Will schedule the patient on dialysis tomorrow. 2. Pulmonary edema. Will schedule the patient for ultrafiltration today, tolerated to 3 liter removal. 3. Community-acquired pneumonia with fever. The patient received 1/2 dose of vancomycin at dialysis. He also will receive vancomycin and will continue his antibiotics. 4. Leukocytosis secondary to pneumonia. 5. Anemia of chronic disease, plus possible GI bleed. The patient was on Epogen, and also as outpatient. We will check his stool for occult blood, and will check his labs in a.m. 6. Blood cultures are currently pending. 7. Continue cefepime and vancomycin. Job#: [id number]
[2017-12-17] MEDS ORDERED: SODIUM CHLORIDE 0.9% 250ML 250 ML ONE ×2 (15:15→20:29)
[2017-12-17 15:54] LABS: BASOPHILS % 0.1 % (0.0-1.0); EOSINOPHILS % 0.1 % (0.0-6.0); HEMATOCRIT 23.5 % (38.2-49.6); LYMPHOCYTES # (AUTO) 0.8 (1.0-3.2); LYMPHOCYTES % 5.6 % (18.0-39.1); MEAN CORPUSCULAR HEMOGLOBIN 32.1 pg (28-32); MEAN CORPUSCULAR HGB CONC 31.9 g/dL (31-35); MEAN CORPUSCULAR VOLUME 100.4 fL (81-99); MONOCYTES % 7.4 % (4.4-11.3); NEUTROPHILS # (AUTO) 11.6 (2.1-6.9); NEUTROPHILS % 86.4 % (38.7-80.0); PLATELET COUNT 391 x10e3/uL (140-360); RED BLOOD COUNT 2.34 x10e6/uL (4.3-5.7); RED CELL DISTRIBUTION WIDTH 17.2 % (11.7-14.4)
[2017-12-17 15:57] LABS: HEMOGLOBIN 7.5 g/dL (14.0-18.0)
[2017-12-17 16:10] LABS: ANION GAP 18.9 mmol/L (8-16); CALCIUM 8.6 mg/dL (8.4-10.2); CREATININE, SERUM 7.89 mg/dL (0.72-1.25); POTASSIUM 4.9 mmol/L (3.5-5.1)
[2017-12-17] MEDS ORDERED: DILTIAZEM HCL 5 MG/ML 5 ML VIAL IV ONE (19:30)
[2017-12-17] MEDS ORDERED: DIGOXIN INJ 0.25 MG/ML 2 ML AMP IV ONE (20:00)
[2017-12-17] MEDS: ATORVASTATIN 20 MG TAB PO SCH (20:47)
[2017-12-18] VITALS (7 sets, daily range): BP systolic 80–147; BP diastolic 46–84
[2017-12-18] MEDS: METOPROLOL TARTRATE 25 MG TAB PO SCH ×3 (04:00→15:00)
--- NOTE | 2017-12-18 05:22 | Diagnostic Imaging Report ---
EXAM: CHEST 2 VIEWS, PA and lateral ORDER DATE: 12/17/2017 7:36 PM TIME STAMP ON EXAM: 0404 hours INDICATION: Cough, fever COMPARISON: AP view of the chest December 15, 2017 FINDINGS: LINES/TUBES: Stable position of right subclavian hemodialysis catheter. Interval placement of internal jugular vein central line that terminates in expected location of the atriocaval junction. LUNGS: Mild interstitial edema and scattered atelectasis bilaterally. PLEURA: No effusions or pneumothorax. HEART AND MEDIASTINUM: Stable cardiomegaly. BONES AND SOFT TISSUES: No acute findings. IMPRESSION: Interval placement of right internal jugular vein central line, otherwise no significant interval change. Signed by: Dr. Glendy Barnes M.D. on 12/18/2017 5:18 AM
[2017-12-18] MEDS: CLONIDINE HCL 0.1 MG TAB PO SCH ×3 (06:04→22:00)
[2017-12-18] MEDS: METOPROLOL TARTRATE INJ 1 MG/ML VIAL IV PRN (06:57)
[2017-12-18 07:02] LABS: BASOPHILS % 0.2 % (0.0-1.0); EOSINOPHILS % 0.2 % (0.0-6.0); HEMATOCRIT 30.2 % (38.2-49.6); HEMOGLOBIN 9.8 g/dL (14.0-18.0); LYMPHOCYTES # (AUTO) 0.8 (1.0-3.2); LYMPHOCYTES % 6.7 % (18.0-39.1); MEAN CORPUSCULAR HEMOGLOBIN 31.5 pg (28-32); MEAN CORPUSCULAR HGB CONC 32.5 g/dL (31-35); MEAN CORPUSCULAR VOLUME 97.1 fL (81-99); MONOCYTES # (AUTO) 1.4 (0.2-0.8); MONOCYTES % 11.2 % (4.4-11.3); NEUTROPHILS # (AUTO) 10.1 (2.1-6.9); NEUTROPHILS % 81.1 % (38.7-80.0); PLATELET COUNT 325 x10e3/uL (140-360); RED BLOOD COUNT 3.11 x10e6/uL (4.3-5.7); RED CELL DISTRIBUTION WIDTH 17.8 % (11.7-14.4)
[2017-12-18 07:29] LABS: ANION GAP 18.4 mmol/L (8-16); CALCIUM 8.8 mg/dL (8.4-10.2); CREATININE, SERUM 5.34 mg/dL (0.72-1.25); POTASSIUM 4.4 mmol/L (3.5-5.1)
[2017-12-18] MEDS: INSULIN REGULAR, HUMAN 100 UNIT/1 ML 3ML VIAL SQ SCH ×4 (07:30→22:30)
[2017-12-18] MEDS: SEVELAMER CARBONATE 800 MG TAB PO SCH ×3 (08:49→17:40)
[2017-12-18] MEDS: ISOSORBIDE DINITRATE 20 MG TAB PO SCH ×2 (08:49→17:00)
[2017-12-18] MEDS: AMIODARONE HCL 200 MG TAB PO SCH (08:49)
[2017-12-18] MEDS: HYDRALAZINE HCL 25 MG TAB PO SCH ×3 (08:49→21:00)
[2017-12-18] MEDS: CEFEPIME HCL 1 GM VIAL IV SCH (08:49)
[2017-12-18] MEDS: ASPIRIN 81 MG ENTERIC COATED PO SCH (08:49)
[2017-12-18] MEDS: CARVEDILOL 12.5 MG TAB PO SCH ×2 (08:49→17:00)
[2017-12-18] MEDS: LACTOBACILLUS ACIDOPHILUS CAPSULE PO SCH ×3 (08:50→21:22)
[2017-12-18] MEDS: GABAPENTIN 100 MG CAP PO SCH ×3 (08:50→21:22)
[2017-12-18] MEDS: CLOPIDOGREL BISULFATE 75 MG TAB PO SCH (08:50)
[2017-12-18] MEDS: NIFEDIPINE CR 30 MG TAB PO SCH (08:50)
[2017-12-18] MEDS: PANTOPRAZOLE SOD 40 MG TABEC PO SCH (08:50)
[2017-12-18] MEDS: CALCITRIOL 0.25 MCG CAP PO SCH (08:50)
[2017-12-18] MEDS: PRIMIDONE 50 MG TAB PO SCH ×2 (08:50→17:40)
[2017-12-18] MEDS: INSULIN DETEMIR 100 UNIT/ML PEN SQ SCH ×2 (09:00→17:40)
[2017-12-18] MEDS: NYSTATIN 15 GM POWDER UD BTL TP SCH ×3 (09:00→21:00)
--- NOTE | 2017-12-18 17:37 | Consultation ---
DATE OF CONSULTATION: December 18, 2017 CARDIOLOGY CONSULTATION REASON FOR CONSULTATION: Atrial fibrillation. Mr. Odonnell is a 77-year-old gentleman with multiple medical problems including end-stage renal disease with prior peritoneal dialysis, paroxysmal atrial fibrillation, diabetes mellitus, hypertension who came in for fever. He had his Permacath replaced; however, on dialysis he developed atrial fibrillation with rapid ventricular response and subsequently has remained in his rhythm despite medical therapy. He is unable to anticoagulate due to severe anemia requiring blood transfusion. He has severe peripheral arterial disease. Dr. Gardner has intervened on his right leg with plans for surgical intervention in the future. PAST MEDICAL HISTORY: As listed above. SOCIAL HISTORY: Patient does not smoke or drink. He is accompanied with his . ALLERGIES: NO KNOWN DRUG ALLERGIES. REVIEW OF SYSTEMS: Negative except as dictated in the history of present illness. PHYSICAL EXAMINATION: VITALS: Afebrile, heart rate 69. Blood pressure 119/63. LUNGS: Clear to auscultation bilaterally. CARDIOVASCULAR: Irregular rhythm. Systolic murmur. ABDOMEN: Soft, mildly distended. LABORATORY DATA: Reviewed. Telemetry shows atrial fibrillation. EKG shows atrial fibrillation. Chest x-ray done yesterday shows some mild cardiomegaly. Echocardiogram shows normal LV systolic function. ASSESSMENT: Atrial fibrillation with rapid ventricular response. RECOMMENDATION: Blood pressure is borderline. However, the patient has been on calcium channel kina, Procardia 60 mg a day. I will transition this to Cardizem for better rate and rhythm control. Amiodarone as well as carvedilol should also be continued. Unfortunately, anticoagulation is contraindicated. Dual antiplatelet therapy should be continued. Mr. Odonnell sees Dr. Cedric Higgins as an outpatient. I discussed his care with Dr. Yi. We will transfer Mr. Odonnell's care to Dr. Barrera in the morning. Job#: [id number]
[2017-12-18] MEDS: ATORVASTATIN 20 MG TAB PO SCH (21:22)
[2017-12-19 01:45] VITALS: BP 116/55
[2017-12-19 02:12] VITALS: BP 116/55
[2017-12-19 04:00] VITALS: BP 109/46
[2017-12-19] MEDS: DEXTROSE 50% SYRINGE 50 ML IV PRN (06:00)
[2017-12-19] MEDS: CLONIDINE HCL 0.1 MG TAB PO SCH ×3 (06:00→22:30)
[2017-12-19] MEDS: CARVEDILOL 12.5 MG TAB PO SCH ×2 (07:00→17:00)
[2017-12-19] MEDS: INSULIN REGULAR, HUMAN 100 UNIT/1 ML 3ML VIAL SQ SCH ×4 (07:30→21:30)
[2017-12-19 08:00] VITALS: BP 127/59
[2017-12-19] MEDS: SEVELAMER CARBONATE 800 MG TAB PO SCH ×3 (08:00→17:00)
[2017-12-19] MEDS: INSULIN DETEMIR 100 UNIT/ML PEN SQ SCH ×2 (09:00→17:00)
[2017-12-19] MEDS: HYDRALAZINE HCL 25 MG TAB PO SCH ×3 (09:00→21:00)
[2017-12-19] MEDS: DILTIAZEM HCL 120 MG CAP CD PO SCH (09:00)
[2017-12-19] MEDS: ASPIRIN 81 MG ENTERIC COATED PO SCH (09:59)
[2017-12-19] MEDS: AMIODARONE HCL 200 MG TAB PO SCH (09:59)
[2017-12-19] MEDS: DIGOXIN 0.125 MG TAB PO SCH (09:59)
[2017-12-19] MEDS: CEFEPIME HCL 1 GM VIAL IV SCH (09:59)
[2017-12-19] MEDS: ISOSORBIDE DINITRATE 20 MG TAB PO SCH ×2 (09:59→17:00)
[2017-12-19] MEDS: PRIMIDONE 50 MG TAB PO SCH ×2 (10:00→17:00)
[2017-12-19] MEDS: CALCITRIOL 0.25 MCG CAP PO SCH (10:00)
[2017-12-19] MEDS: CLOPIDOGREL BISULFATE 75 MG TAB PO SCH (10:00)
[2017-12-19] MEDS: GABAPENTIN 100 MG CAP PO SCH ×3 (10:00→21:30)
[2017-12-19] MEDS: METOPROLOL TARTRATE 25 MG TAB PO SCH ×3 (10:00→21:00)
[2017-12-19] MEDS: PANTOPRAZOLE SOD 40 MG TABEC PO SCH (10:00)
[2017-12-19] MEDS: LACTOBACILLUS ACIDOPHILUS CAPSULE PO SCH ×3 (10:00→21:30)
[2017-12-19] MEDS: NYSTATIN 15 GM POWDER UD BTL TP SCH ×3 (10:00→21:00)
--- NOTE | 2017-12-19 12:39 | Consultation ---
DATE OF CONSULTATION: December 19, 2017 REASON FOR CONSULTATION: AFib. CONSULTING PHYSICIAN: Dr. TRU BARRERA. HPI: This is a 77-year-old male that presented with cough, fever, muscle ache, and generalized weakness. He was found to have pneumonia and was admitted. He also has a history of AFib and is a patient of Dr. Cedric Higgins and he sees Dr. Barrera in the hospital. He was admitted under Dr. Kwadwo Dong and was later switched to Dr. Barrera, his filter assembler. He has a history of multiple medical problems and multiple admissions that includes sepsis, peritonitis, AFib, GI bleed, and CAD. According to the at the bedside, he was having difficulty with breathing, chest discomfort, sore throat that she brought him in for evaluation. He was recently discharged home after having GI bleed and soft tissue mass that he undergone surgery with Dr. Gill. He has also end-stage renal disease on dialysis. He denies any palpitation, any dizziness, or diaphoresis. Chest x-ray was showing 5 mm nodule on the right upper lobe. PAST MEDICAL HISTORY: Dementia, ischemic colitis, PVD, hyperlipidemia, CHF, PAD, AFib, Parkinson syndrome, anemia of chronic disease, sepsis, diabetes, end-stage renal disease on dialysis, hypertension, GI bleed, and soft tissue mass on the right perianal area. PAST SURGICAL HISTORY: Right knee surgery, right arm surgery, amputation, dialysis, bilateral carotid endarterectomy. FAMILY HISTORY: Noncontributory. SOCIAL HISTORY: Lives at home with . He quit smoking. MEDICATIONS: See med list. ALLERGIES: HE IS NOT ALLERGIC TO ANY MEDICATION. REVIEW OF SYSTEMS: Negative except those mentioned above. PHYSICAL EXAMINATION VITAL SIGNS: Temperature 96, heart rate 92, blood pressure 127/59, respirations 20, oxygen saturation 95% on 2 liters nasal cannula. GENERAL: He is awake and alert times 3. HEENT: Mucous membrane moist. NECK: Supple. LUNGS: With decreased breath sounds. CARDIOVASCULAR: Irregularly irregular. ABDOMEN: Soft. NEUROLOGIC: He is able to move all extremities. EXTREMITIES: Bilateral lower extremity with no edema. LABORATORY DATA: Sodium 136, potassium 4.4, chloride 98, CO2 of 24, BUN 43, creatinine 5.34, glucose 102. White blood cell 12.4, hemoglobin 9.8, hematocrit 30.2, platelet 325. PT 12.6, PTT 33.1. INR 0.90. IMPRESSION 1. Atrial fibrillation with controlled rate. 2. Pneumonia. 3. End-stage renal disease, on dialysis. 4. Hypertension. 5. Diabetes. 6. History of gastrointestinal bleed. 7. Anemia. ASSESSMENT AND PLAN: He had an echo done with EF 51%. Heart rate is controlled. Will continue his amiodarone, Cardizem, and beta-kina. He is not anticoagulated due to history of multiple GI bleeds. Will continue home medications. Further cardiac workup pending clinical course. Thank you for this consultation. Dictated By: Urbano Marrero NP Job#: [id number]
[2017-12-19] MEDS ORDERED: LEVALBUTEROL HCL SOLN NEBU 0.63 MG/3 ML NEB INH PRN (15:45)
[2017-12-19 16:04] VITALS: BP 143/60
[2017-12-19 19:40] VITALS: BP 117/54
[2017-12-19] MEDS: ATORVASTATIN 20 MG TAB PO SCH (21:30)
[2017-12-20] VITALS (8 sets, daily range): BP systolic 135–198; BP diastolic 63–99
[2017-12-20] MEDS: CLONIDINE HCL 0.1 MG TAB PO SCH ×3 (05:29→21:24)
[2017-12-20] MEDS: INSULIN REGULAR, HUMAN 100 UNIT/1 ML 3ML VIAL SQ SCH ×4 (07:30→21:00)
[2017-12-20] MEDS: INSULIN DETEMIR 100 UNIT/ML PEN SQ SCH ×2 (09:00→18:34)
[2017-12-20] MEDS: CEFEPIME HCL 1 GM VIAL IV SCH (09:00)
[2017-12-20] MEDS: METOPROLOL TARTRATE 25 MG TAB PO SCH ×3 (10:32→21:00)
[2017-12-20] MEDS: CARVEDILOL 12.5 MG TAB PO SCH ×2 (11:04→17:00)
[2017-12-20] MEDS: METOPROLOL TARTRATE INJ 1 MG/ML VIAL IV PRN (11:05)
[2017-12-20] MEDS ORDERED: SODIUM CHLORIDE 0.9% 250ML 500 ML IV PRN (11:30)
[2017-12-20] MEDS ORDERED: HEPARIN SOD (PORCINE) 1000 UNIT/ML SDV IV PRN (11:30)
[2017-12-20] MEDS ORDERED: ALBUMIN HUMAN 12.5GM / 50ML IV PRN (11:30)
[2017-12-20] MEDS ORDERED: MANNITOL 25% 12.5GM/50 ML VIAL IV PRN (11:30)
[2017-12-20] MEDS: NYSTATIN 15 GM POWDER UD BTL TP SCH ×3 (11:44→21:00)
[2017-12-20] MEDS: SEVELAMER CARBONATE 800 MG TAB PO SCH ×3 (12:00→17:00)
[2017-12-20] MEDS: DILTIAZEM HCL 120 MG CAP CD PO SCH (13:15)
[2017-12-20] MEDS: HYDRALAZINE HCL 25 MG TAB PO SCH ×3 (13:15→21:00)
[2017-12-20] MEDS: ASPIRIN 81 MG ENTERIC COATED PO SCH (13:15)
[2017-12-20] MEDS: AMIODARONE HCL 200 MG TAB PO SCH (13:15)
[2017-12-20] MEDS: LACTOBACILLUS ACIDOPHILUS CAPSULE PO SCH ×3 (13:16→21:00)
[2017-12-20] MEDS: PANTOPRAZOLE SOD 40 MG TABEC PO SCH (13:16)
[2017-12-20] MEDS: CLOPIDOGREL BISULFATE 75 MG TAB PO SCH (13:16)
[2017-12-20] MEDS: DIGOXIN 0.125 MG TAB PO SCH (13:16)
[2017-12-20] MEDS: PRIMIDONE 50 MG TAB PO SCH ×2 (13:16→17:00)
[2017-12-20] MEDS: ISOSORBIDE DINITRATE 20 MG TAB PO SCH ×2 (13:16→17:00)
[2017-12-20] MEDS: GABAPENTIN 100 MG CAP PO SCH ×3 (13:16→21:00)
[2017-12-20] MEDS: CALCITRIOL 0.25 MCG CAP PO SCH (13:16)
[2017-12-20 13:34] LABS: KETONES,URINE NEGATIVE (NEGATIVE); LEUKOCYTE ESTERASE ,URINE NEGATIVE (NEGATIVE); NITRITE,URINE NEGATIVE (NEGATIVE); URINE UROBILINOGEN 0.2 mg/dL (0.2 - 1)
[2017-12-20 13:50] LABS: BILIRUBIN,URINE 1+ (NEGATIVE); CLARITY,URINE SL CLOUDY (CLEAR); COLOR,URINE YELLOW (YELLOW); PROTEIN,URINE DIPSTICK 2+ (NEGATIVE)
[2017-12-20 13:55] LABS: BACTERIA,URINE RARE /HPF; CALCIUM OXALATE CRYSTALS,UR RARE (FEW); EPITHELIAL CELLS,URINE FEW /LPF
[2017-12-20] MEDS: EPOETIN ALFA 10000 UNIT/ML VIAL IV SCH (15:56)
[2017-12-20] MEDS: VANCOMYCIN 750MG/NS 150ML IVPB 150 ML IV SCH (18:32)
[2017-12-20] MEDS: ATORVASTATIN 20 MG TAB PO SCH (21:00)
[2017-12-21] VITALS (7 sets, daily range): BP systolic 125–149; BP diastolic 56–88
[2017-12-21] MEDS: DEXTROSE 50% SYRINGE 50 ML IV PRN (02:45)
[2017-12-21] MEDS: CLONIDINE HCL 0.1 MG TAB PO SCH (06:00)
[2017-12-21] MEDS: INSULIN REGULAR, HUMAN 100 UNIT/1 ML 3ML VIAL SQ SCH ×4 (07:30→21:00)
[2017-12-21] MEDS: SEVELAMER CARBONATE 800 MG TAB PO SCH ×3 (08:00→17:00)
[2017-12-21] MEDS: LACTOBACILLUS ACIDOPHILUS CAPSULE PO SCH ×3 (08:00→21:00)
[2017-12-21] MEDS: CEFEPIME HCL 1 GM VIAL IV SCH (08:00)
[2017-12-21] MEDS: PANTOPRAZOLE SOD 40 MG TABEC PO SCH (08:00)
[2017-12-21] MEDS: ASPIRIN 81 MG ENTERIC COATED PO SCH (08:00)
[2017-12-21] MEDS: HYDRALAZINE HCL 25 MG TAB PO SCH ×3 (08:00→21:00)
[2017-12-21] MEDS: INSULIN DETEMIR 100 UNIT/ML PEN SQ SCH ×2 (08:00→17:00)
[2017-12-21] MEDS: CALCITRIOL 0.25 MCG CAP PO SCH (08:00)
[2017-12-21] MEDS: AMIODARONE HCL 200 MG TAB PO SCH (08:00)
[2017-12-21] MEDS: CLOPIDOGREL BISULFATE 75 MG TAB PO SCH (08:00)
[2017-12-21] MEDS: DIGOXIN 0.125 MG TAB PO SCH (08:00)
[2017-12-21] MEDS: PRIMIDONE 50 MG TAB PO SCH ×2 (08:00→17:00)
[2017-12-21] MEDS: ISOSORBIDE DINITRATE 20 MG TAB PO SCH ×2 (08:00→17:00)
[2017-12-21] MEDS: CARVEDILOL 12.5 MG TAB PO SCH ×2 (08:30→17:00)
[2017-12-21] MEDS ORDERED: CLONIDINE HCL 0.1 MG TAB PO PRN (08:30)
[2017-12-21] MEDS: GABAPENTIN 100 MG CAP PO SCH ×2 (09:00→15:00)
[2017-12-21] MEDS: NYSTATIN 15 GM POWDER UD BTL TP SCH ×3 (09:00→21:00)
[2017-12-21] MEDS ORDERED: GABAPENTIN 100 MG CAP PO PRN (17:45)
[2017-12-21] MEDS: ATORVASTATIN 20 MG TAB PO SCH (21:00)
[2017-12-21] MEDS: GUAIFENESIN 600 MG TAB PO PRN (23:09)
[2017-12-22 01:54] VITALS: BP 146/64
[2017-12-22] MEDS: CARVEDILOL 12.5 MG TAB PO SCH ×2 (07:00→17:00)
[2017-12-22] MEDS: INSULIN REGULAR, HUMAN 100 UNIT/1 ML 3ML VIAL SQ SCH ×4 (07:30→21:00)
[2017-12-22] MEDS: LACTOBACILLUS ACIDOPHILUS CAPSULE PO SCH ×3 (08:00→21:07)
[2017-12-22] MEDS: INSULIN DETEMIR 100 UNIT/ML PEN SQ SCH ×2 (08:00→17:00)
[2017-12-22] MEDS: ISOSORBIDE DINITRATE 20 MG TAB PO SCH ×2 (08:00→17:00)
[2017-12-22] MEDS: ASPIRIN 81 MG ENTERIC COATED PO SCH (08:00)
[2017-12-22] MEDS: PANTOPRAZOLE SOD 40 MG TABEC PO SCH (08:00)
[2017-12-22] MEDS: CLOPIDOGREL BISULFATE 75 MG TAB PO SCH (08:00)
[2017-12-22] MEDS: SEVELAMER CARBONATE 800 MG TAB PO SCH ×3 (08:00→17:00)
[2017-12-22] MEDS: AMIODARONE HCL 200 MG TAB PO SCH (08:00)
[2017-12-22] MEDS: PRIMIDONE 50 MG TAB PO SCH ×2 (08:00→17:00)
[2017-12-22] MEDS: CALCITRIOL 0.25 MCG CAP PO SCH (08:00)
[2017-12-22 08:15] VITALS: BP 198/92
[2017-12-22] MEDS: HYDRALAZINE HCL 25 MG TAB PO SCH ×3 (09:00→21:07)
[2017-12-22] MEDS: NYSTATIN 15 GM POWDER UD BTL TP SCH ×3 (09:00→21:00)
[2017-12-22] MEDS ORDERED: MEROPENEM 500MG 500 MG in SODIUM CHLORIDE 0.9% 50ML 50 ML IV SCH (09:00)
[2017-12-22 09:08] VITALS: BP 198/92
[2017-12-22] MEDS: ACETAMINOPHEN 325 MG TAB PO PRN (10:02)
[2017-12-22 10:30] LABS: BASOPHILS % 0.1 % (0.0-1.0); EOSINOPHILS # (AUTO) 0.3 (0.0-0.4); EOSINOPHILS % 1.9 % (0.0-6.0); HEMATOCRIT 29.7 % (38.2-49.6); HEMOGLOBIN 9.8 g/dL (14.0-18.0); LYMPHOCYTES # (AUTO) 1.4 (1.0-3.2); LYMPHOCYTES % 9.5 % (18.0-39.1); MEAN CORPUSCULAR HEMOGLOBIN 31.1 pg (28-32); MEAN CORPUSCULAR VOLUME 94.3 fL (81-99); MONOCYTES % 6.6 % (4.4-11.3); NEUTROPHILS # (AUTO) 11.8 (2.1-6.9); NEUTROPHILS % 81.5 % (38.7-80.0); PLATELET COUNT 427 x10e3/uL (140-360); RED BLOOD COUNT 3.15 x10e6/uL (4.3-5.7); RED CELL DISTRIBUTION WIDTH 16.1 % (11.7-14.4)
[2017-12-22 10:49] LABS: ANION GAP 18.6 mmol/L (8-16); CALCIUM 9.1 mg/dL (8.4-10.2); CREATININE, SERUM 8.08 mg/dL (0.72-1.25); POTASSIUM 4.6 mmol/L (3.5-5.1)
[2017-12-22] MEDS: MEROPENEM 500 MG VIAL IV SCH (11:00)
[2017-12-22 11:43] VITALS: BP 177/75
[2017-12-22 16:28] VITALS: BP 191/77
[2017-12-22] MEDS: EPOETIN ALFA 10000 UNIT/ML VIAL IV SCH (16:30)
[2017-12-22 20:00] VITALS: BP 190/84
[2017-12-22] MEDS: VANCOMYCIN 750MG/NS 150ML IVPB 150 ML IV SCH (21:06)
[2017-12-22] MEDS: ATORVASTATIN 20 MG TAB PO SCH (21:07)
[2017-12-23] VITALS (7 sets, daily range): BP systolic 91–195; BP diastolic 44–86
[2017-12-23] MEDS: GUAIFENESIN 600 MG TAB PO PRN ×3 (00:44→20:19)
[2017-12-23] MEDS: INSULIN REGULAR, HUMAN 100 UNIT/1 ML 3ML VIAL SQ SCH ×3 (07:30→16:30)
[2017-12-23] MEDS: CARVEDILOL 12.5 MG TAB PO SCH ×2 (08:00→17:22)
[2017-12-23] MEDS: SEVELAMER CARBONATE 800 MG TAB PO SCH ×3 (08:00→17:22)
[2017-12-23] MEDS: INSULIN DETEMIR 100 UNIT/ML PEN SQ SCH ×2 (09:00→17:00)
[2017-12-23] MEDS: AMIODARONE HCL 200 MG TAB PO SCH (09:00)
[2017-12-23] MEDS: PANTOPRAZOLE SOD 40 MG TABEC PO SCH (09:32)
[2017-12-23] MEDS: CLOPIDOGREL BISULFATE 75 MG TAB PO SCH (09:32)
[2017-12-23] MEDS: ASPIRIN 81 MG ENTERIC COATED PO SCH (09:32)
[2017-12-23] MEDS: HYDRALAZINE HCL 25 MG TAB PO SCH ×2 (09:32→15:30)
[2017-12-23] MEDS: CALCITRIOL 0.25 MCG CAP PO SCH (09:32)
[2017-12-23] MEDS: LACTOBACILLUS ACIDOPHILUS CAPSULE PO SCH ×2 (09:32→15:30)
[2017-12-23] MEDS: PRIMIDONE 50 MG TAB PO SCH ×2 (09:32→17:22)
[2017-12-23] MEDS: ISOSORBIDE DINITRATE 20 MG TAB PO SCH ×2 (09:32→17:22)
[2017-12-23] MEDS: NYSTATIN 15 GM POWDER UD BTL TP SCH ×2 (09:33→15:00)
[2017-12-23] MEDS: MEROPENEM 500 MG VIAL IV SCH (10:49)
== END 2017-12-23 21:57 | DRG 291 ==
LOC: ER 16:45 → MED/SURG3 20:43 → OBSVTOIN 12-16 13:40
PROVIDERS: ADMIT Internal Medicine; ATTEND Internal Medicine
PROC: 30243N1 Transfusion of Nonautologous Red Blood Cells into Central Vein, Percutaneous Approach (ICD-10-PCS; 2017-12-16)
PROC: 5A1D70Z Performance of Urinary Filtration, Intermittent, Less than 6 Hours Per Day (ICD-10-PCS; 2017-12-16)
PROC: 02HV33Z Insertion of Infusion Device into Superior Vena Cava, Percutaneous Approach (ICD-10-PCS; principal; 2017-12-17)
PROC: 5A1D70Z Performance of Urinary Filtration, Intermittent, Less than 6 Hours Per Day (ICD-10-PCS; 2017-12-17)
PROC: 5A1D70Z Performance of Urinary Filtration, Intermittent, Less than 6 Hours Per Day (ICD-10-PCS; 2017-12-20)
PROC: 5A1D70Z Performance of Urinary Filtration, Intermittent, Less than 6 Hours Per Day (ICD-10-PCS; 2017-12-23)
DX: I13.0 Hypertensive heart and chronic kidney disease with heart failure and stage 1 through stage 4 chronic kidney disease, or unspecified chronic kidney disease (principal); N18.6 End stage renal disease; J18.9 Pneumonia, unspecified organism; J81.1 Chronic pulmonary edema; E11.22 Type 2 diabetes mellitus with diabetic chronic kidney disease; E11.40 Type 2 diabetes mellitus with diabetic neuropathy, unspecified; G20 Parkinson's disease; E11.51 Type 2 diabetes mellitus with diabetic peripheral angiopathy without gangrene; I50.43 Acute on chronic combined systolic (congestive) and diastolic (congestive) heart failure; F03.90 Unspecified dementia, unspecified severity, without behavioral disturbance, psychotic disturbance, mood disturbance, and anxiety; I48.91 Unspecified atrial fibrillation; I25.10 Atherosclerotic heart disease of native coronary artery without angina pectoris; Z79.01 Long term (current) use of anticoagulants; Z99.2 Dependence on renal dialysis; Z79.4 Long term (current) use of insulin; J22 Unspecified acute lower respiratory infection; R91.1 Solitary pulmonary nodule; Z16.24 Resistance to multiple antibiotics; B96.20 Unspecified Escherichia coli [E. coli] as the cause of diseases classified elsewhere; Z16.12 Extended spectrum beta lactamase (ESBL) resistance; I13.2 Hypertensive heart and chronic kidney disease with heart failure and with stage 5 chronic kidney disease, or end stage renal disease
CPT/HCPCS: 36415; 36430; 36556; 71045; 71046; 71250; 74470; 76937; 77001; 80048; 80053; 81001; 82270; 82550; 82553; 82948; 83605; 83735; 83880; 84484; 85025; 85610; 85730; 86704; 86706; 86850; 86900; 86920; 87040; 87070; 87086; 87186; 87205; 87340; 87400; 90962; 93005; 93306; 97139; C1751; G0378; J0692; J1160; J1644; J1940; J2185; J2405; J7030; J7050; J7799; P9016; Q4081

== ENCOUNTER 2018-08-16 16:21 | Inpatient (IN) | payer MEDICARE, OTHER ==
[2018-08-15 22:45] VITALS: BP 122/79
[~2018-08-16] VITALS: Ht 182.9 cm; Wt 82.8 kg
[~2018-08-16 16:21] MED LIST changes: +ASPIRIN EC81 MG PO; +CARVEDILOL12.5 MG PO; +NITROGLYCERIN0.4 MG SL
[2018-08-16 17:54] LABS: BASOPHILS % 0.3 % (0.0-1.0); EOSINOPHILS # (AUTO) 0.1 (0.0-0.4); EOSINOPHILS % 0.8 % (0.0-6.0); HEMATOCRIT 33.1 % (38.2-49.6); HEMOGLOBIN 10.8 g/dL (14.0-18.0); LYMPHOCYTES # (AUTO) 1.3 (1.0-3.2); LYMPHOCYTES % 11.5 % (18.0-39.1); MEAN CORPUSCULAR HEMOGLOBIN 35.3 pg (28-32); MEAN CORPUSCULAR HGB CONC 32.6 g/dL (31-35); MEAN CORPUSCULAR VOLUME 108.2 fL (81-99); MONOCYTES % 9.1 % (4.4-11.3); NEUTROPHILS # (AUTO) 8.9 (2.1-6.9); NEUTROPHILS % 77.2 % (38.7-80.0); PLATELET COUNT 335 x10e3/uL (140-360); RED BLOOD COUNT 3.06 x10e6/uL (4.3-5.7); RED CELL DISTRIBUTION WIDTH 17.7 % (11.7-14.4)
[2018-08-16 18:10] LABS: INR 1.08
[2018-08-16 18:11] LABS: PARTIAL THROMBOPLASTIN TIME 34.3 seconds (23.8-35.5)
[2018-08-16 18:13] LABS: ALBUMIN 3.6 g/dL (3.5-5.0); ALBUMIN/GLOBULIN RATIO 0.8 (0.8-2.0); ANION GAP 22.1 mmol/L (8-16); CALCIUM 10.2 mg/dL (8.4-10.2); CREATININE, SERUM 6.9 mg/dL (0.72-1.25)
[2018-08-16 18:18] LABS: POTASSIUM 6.1 mmol/L (3.5-5.1)
[2018-08-16] MEDS ORDERED: DEXTROSE 50% SYRINGE 50 ML IV STA (18:30)
[2018-08-16] MEDS ORDERED: INSULIN REGULAR, HUMAN 100 UNIT/1 ML 3ML VIAL IV ONE (18:30)
[2018-08-16] MEDS ORDERED: SODIUM BICARBONATE 8.4% 50 ML VIAL IV STA (18:30)
[2018-08-16] MEDS ORDERED: SODIUM BICARBONATE 8.4% INJ 50 ML SYR IV ONE (18:45)
[2018-08-16] MEDS ORDERED: SOD POLYSTYRENE SULFONATE SUSP 15 GM/60 ML BTL PO ONE (18:45)
[2018-08-16] MEDS ORDERED: VANCOMYCIN 1GM/NS 250 ML 250 ML IV STA (19:06)
[2018-08-16] MEDS ORDERED: SODIUM CHLORIDE FLUSH 10 ML SYR INJ PRN (19:15)
[2018-08-16] MEDS ORDERED: METOPROLOL TARTRATE INJ 1 MG/ML VIAL IV ONE (19:15)
[2018-08-16] MEDS ORDERED: DEXTROSE 50% SYRINGE 50 ML IV PRN (19:15)
[2018-08-16] MEDS ORDERED: METOPROLOL TARTRATE INJ 1 MG/ML VIAL ONE (19:23)
[2018-08-16] MEDS ORDERED: ROPINIROLE HCL PO (19:42)
[2018-08-16] MEDS ORDERED: METOPROLOL TART50 MG PO (19:42)
[2018-08-16] MEDS ORDERED: VITAMIN C500 M1 PO (19:42)
[2018-08-16] MEDS ORDERED: MIRALAX PO (19:42)
[2018-08-16] MEDS ORDERED: COQ 10 PO (19:42)
[2018-08-16] MEDS ORDERED: ROPINIROLE HCL (19:42)
[2018-08-16] MEDS ORDERED: FLAXSEED OIL1000 MG PO (19:42)
[2018-08-16] MEDS ORDERED: VITAMIN D250000 UNIT PO (19:42)
[2018-08-16] MEDS ORDERED: SEVELAMER CARBONATE PO (19:42)
[2018-08-16] MEDS: INSULIN LISPRO 100 UNIT/1 ML 3ML VIAL SQ SCH (21:26)
[2018-08-16] MEDS: AZTREONAM (AZACTAM) 0.5 GM in SODIUM CHLORIDE 0.9% 50ML 50 ML IV SCH (21:27)
[2018-08-16 22:45] VITALS: BP 122/79
[2018-08-17] VITALS (8 sets, daily range): BP systolic 121–163; BP diastolic 56–94
--- NOTE | 2018-08-17 01:18 | Consultation ---
DATE OF CONSULTATION: August 16, 2018 RENAL CONSULT HPI: This is a 78-year-old white male with end-stage renal disease, on hemodialysis Tuesday, , and Tuesday, who was admitted secondary to complaints of left extremity pain. The patient has been seen by Dr. Preciado previously and was given p.o. antibiotics but did not improve and now with worsening pain and redness of his left foot, left great toe, left 2nd toe, left 3rd toe and the 4th and 5th toes. The patient stated this happened within the last 2 weeks and it has been getting worse. I did see the patient last Tuesday and he was not complaining of any of these pains at the time. PAST MEDICAL HISTORY 1. ESRD. 2. Type 2 diabetes mellitus. 3. Hypertension. 4. History of ischemic colitis. 5. History of peritonitis. 6. Chronic hypertension. 7. Congestive heart failure. 8. Right knee surgery. 9. Right upper arm amputation. 10. Parkinson syndrome. 11. Functional dementia. 12. Benign tremor. 13. Diabetic neuropathy. 14. Peripheral vascular disease. 15. Hyperlipidemia. 16. Atrial fibrillation. 17. Hemodialysis catheter placement. 18. Bilateral carotid and left femoral artery intervention. ALLERGIES: NO KNOWN DRUG ALLERGIES. SOCIAL HISTORY: No smoking, no alcohol. PAST SURGICAL HISTORY 1. Knee surgery. 2. Peritoneal dialysis catheter placement and removal. 3. Bilateral carotid and left femoral artery intervention. 4. Hemodialysis catheter placement. REVIEW OF SYSTEMS: Denies any nausea, vomiting, constipation . Denies any shortness of breath, denies any chest pain. Denies any blood in the stool. No blood in the urine. No sensory loss or motor loss. No skin changes. Denies any enlarged lymph nodes. Basically otherwise is negative. PHYSICAL EXAMINATION GENERAL: Alert and following commands. HEENT: Pupils reactive to light and accommodation. NECK: No JVD. No bruits. LUNGS: Rhonchi, no rales. HEART: Regular rate and rhythm. No S3, no S4. ABDOMEN: Nontender, nondistended. No hepatosplenomegaly. EXTREMITIES: Left foot cellulitis with 5 toes affected. VITAL SIGNS: Blood pressure 116/89 with a heart rate of 26. LABS: White count 11.4, hemoglobin 10.8, and hematocrit 30.1. Sodium 132, potassium 6.1, chloride 95, BUN 80 and creatinine 6.9. ASSESSMENT AND PLAN 1. End-stage renal disease, on hemodialysis Tuesday, , and Tuesday. Patient will be dialyzed tomorrow. 2. Hyperkalemia. The patient already received Kayexalate in the emergency room. We will repeat a potassium level. 3. Anemia of chronic disease, currently stable. 4. Left foot cellulitis. The patient will be evaluated. Currently, the patient will be receiving aztreonam and he also received vancomycin. 5. The patient may need to have a peripheral vascular disease workup. 6. Type 2 diabetes mellitus. We will monitor his glucose. Job#: [id number] CF
[2018-08-17 05:27] LABS: BASOPHILS # (AUTO) 0.1 (0.0-0.1); BASOPHILS % 0.6 % (0.0-1.0); EOSINOPHILS # (AUTO) 0.1 (0.0-0.4); EOSINOPHILS % 0.9 % (0.0-6.0); HEMATOCRIT 32.1 % (38.2-49.6); HEMOGLOBIN 10.1 g/dL (14.0-18.0); LYMPHOCYTES # (AUTO) 1.4 (1.0-3.2); LYMPHOCYTES % 13.5 % (18.0-39.1); MEAN CORPUSCULAR HEMOGLOBIN 35.3 pg (28-32); MEAN CORPUSCULAR HGB CONC 31.5 g/dL (31-35); MEAN CORPUSCULAR VOLUME 112.2 fL (81-99); MONOCYTES % 9.2 % (4.4-11.3); NEUTROPHILS # (AUTO) 7.7 (2.1-6.9); NEUTROPHILS % 74.9 % (38.7-80.0); PLATELET COUNT 251 x10e3/uL (140-360); RED BLOOD COUNT 2.86 x10e6/uL (4.3-5.7); RED CELL DISTRIBUTION WIDTH 17.5 % (11.7-14.4)
[2018-08-17 06:11] LABS: CALCIUM 9.7 mg/dL (8.4-10.2); CREATININE, SERUM 7.61 mg/dL (0.72-1.25)
[2018-08-17] MEDS ORDERED: AZTREONAM 1 GM VIAL ONE (07:59)
[2018-08-17] MEDS ORDERED: ACIDOPHILUS1 EAC1 PO (08:02)
[2018-08-17] MEDS: INSULIN LISPRO 100 UNIT/1 ML 3ML VIAL SQ SCH ×4 (08:05→21:00)
[2018-08-17] MEDS: AZTREONAM (AZACTAM) 0.5 GM in SODIUM CHLORIDE 0.9% 50ML 50 ML IV SCH (08:52)
[2018-08-17] MEDS ORDERED: AZTREONAM (AZACTAM) 0.5 GM in WATER STERILE 10ML VIAL 10 ML IV SCH (09:00)
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
[2018-08-17] MEDS ORDERED: NITROGLYCERIN 0.4 MG SUBL SL PRN (09:30)
[2018-08-17] MEDS: HYDRALAZINE HCL 100 MG TABLET PO SCH ×3 (09:57→21:00)
[2018-08-17] MEDS: PRIMIDONE 50 MG TAB PO SCH ×3 (09:57→21:35)
[2018-08-17] MEDS: NIFEDIPINE CR 30 MG TAB PO SCH (09:57)
[2018-08-17] MEDS: PANTOPRAZOLE SOD 40 MG TABEC PO SCH (09:59)
[2018-08-17] MEDS: ISOSORBIDE DINITRATE 20 MG TAB PO SCH ×2 (11:00→17:00)
[2018-08-17] MEDS: LACTOBACILLUS ACIDOPHILUS CAPSULE PO SCH ×2 (11:55→17:00)
[2018-08-17] MEDS: MUPIROCIN 2% OINT 22 GM TUBE TOP SCH (11:55)
[2018-08-17] MEDS ORDERED: HYDRALAZINE HCL 25 MG TAB PO SCH (15:00)
--- NOTE | 2018-08-17 15:36 | Consultation ---
DATE OF CONSULTATION: August 17, 2018 CARDIOLOGY CONSULTATION REFERRING PHYSICIAN: Dr. Orion Preciado. REASON FOR CONSULTATION: Left foot gangrenous changes, CLI 6, and a history of peripheral arterial disease. HISTORY OF PRESENT ILLNESS: Mr. Odonnell is a 78-year-old man with end-stage renal disease, diabetes mellitus type 2, hypertension, history of ischemic colitis, history of peritonitis in the setting of peritoneal dialysis, now transitioned to scheduled hemodialysis, CHF, peripheral arterial disease with prior multiple interventions remotely over 4 years ago, hyperlipidemia, atrial fibrillation, a history of carotid interventions, who presents to [facility] with gangrenous changes to the tips of the left 2nd, 3rd, 4th and 5th toes after bone trauma while walking. He denies any chest pain or shortness of breath currently. When asked about prior stents in the abdominal or iliac vessels, he declines. Family at bedside. REVIEW OF SYSTEMS: A 12-system review negative except for as noted above. ALLERGIES: NO KNOWN DRUG ALLERGIES. PAST MEDICAL HISTORY: As per HPI. SOCIAL HISTORY: Smoker 2 packs a day, quit 2006. Denies alcohol or drug use. Has 3 children. FAMILY HISTORY: Noncontributory. PHYSICAL EXAMINATION VITAL SIGNS: Temperature 97 degrees, heart rate 109, respiratory rate 18, blood pressure 121/76, O2 sat 92% on nasal cannula at 3 liters per minute. GENERAL: No acute distress. Alert. NECK: No JVD. CHEST: With scattered rhonchi. CARDIOVASCULAR: Irregularly irregular rate and rhythm. Normal S1 and S2. No S3, no S4. ABDOMEN: Soft. EXTREMITIES: Abnormal pulses peripherally to lower extremities with erythematous changes and loss of hair in bilateral lower extremities, gangrenous changes to the toe tips on the left lower extremity. CARDIOVASCULAR MEDICATIONS: On isosorbide dinitrate 2 mg b.i.d., hydralazine 100 mg t.i.d., nifedipine extended release 60 mg daily, metoprolol tartrate 50 mg b.i.d., clopidogrel 75 mg daily, atorvastatin 200 mg nightly, and aspirin 81 mg daily. STUDIES: White blood cells 10.3, hemoglobin 10.8, platelets 251. INR 1.08, PT 15, PTT 34. Sodium 136, potassium 5, chloride 98, bicarbonate 19, BUN 87, creatinine 7.6, glucose 175, calcium 9.7. TELEMETRY: In atrial fibrillation with controlled ventricular response. ASSESSMENT 1. Peripheral arterial disease with left foot gangrenous changes. 2. History of prior lower extremity revascularizations. 3. Chronic heart failure, unspecified. 4. Hypertension. 5. End-stage renal disease on scheduled hemodialysis. 6. Atrial fibrillation. RECOMMENDATIONS: Discussed extensively the indications, alternatives, risks and benefits for angiography and possible intervention. Doppler ultrasound suggests aortoiliac disease, severe and bilateral. Planned for angiography and possible intervention likely tomorrow a.m. Hold anticoagulants from AFib thromboembolic prevention standpoint. Will continue dual antiplatelet therapy and rest of cardiovascular medications. Job#: [id number] EV
[2018-08-17] MEDS: METOPROLOL TARTRATE 50 MG TAB PO SCH (17:00)
[2018-08-17] MEDS: NYSTATIN 15 GM POWDER UD BTL TP SCH ×2 (17:10→21:35)
--- NOTE | 2018-08-17 17:18 | Consultation ---
DATE OF CONSULTATION: August 17, 2018 INFECTIOUS DISEASE CONSULTATION REASON FOR CONSULTATION: Infection of his foot, cellulitis of the left foot. HISTORY OF PRESENT ILLNESS: This is a patient who is known to me from before, a very pleasant 78-year-old white male who has history of end-stage renal disease, atherosclerotic heart disease, diabetes mellitus, hypertension, history of ischemic colitis, history of peritonitis, congestive heart failure, osteoarthritis, right knee surgery, right upper arm amputation, Parkinson disease, dementia, benign tremor, diabetic neuropathy, peripheral vascular disease severe, hyperlipidemia, atrial fibrillation, end-stage renal disease on hemodialysis, bilateral carotid and left femoral artery atherosclerosis with intervention. The patient comes in with left foot redness and swelling which he had for the last 3 weeks, but there are also some necrotic lesions noted on the left great toe, left 2nd toe, and the 3rd as well as the 4th and 5th toe at the tip. The patient does not really provide meaningful information. History was taken mainly from the chart, his at the bedside. PAST MEDICAL HISTORY: As above. PAST SURGICAL HISTORY: As above. He had knee surgery, peritoneal dialysis catheter placement and removal, and then an IV access for hemodialysis. ALLERGIES: NKA. SOCIAL HISTORY: There is no smoking, drug abuse, alcohol abuse. FAMILY HISTORY: Hypertension and diabetes. REVIEW OF SYSTEMS: According to the , besides the foot there is really nothing new. HEENT: Negative. PULMONARY: Negative. CARDIAC: Negative. PHYSICAL EXAMINATION: GENERAL: He is currently alert, confused, does not seem to be in acute distress. VITAL SIGNS: Stable. Currently afebrile. HEENT: He does not appear not icteric. Normocephalic. NECK: Supple. CHEST: Clear bilaterally. HEART: S1 and S2. No S3, no S4, no murmur. ABDOMEN: Soft. Bowel sounds present. EXTREMITIES: There is some necrotic tissue. There are erythema and edema noted in the left foot. Pulses really weak. HIS MEDICATION: He is on Bactroban, lactobacillus, insulin, isosorbide, nifedipine, Azactam, nystatin. IMPRESSION: Cellulitis of the foot in a patient with severe peripheral vascular disease. Agree with vancomycin 1gram now, then after each hemodialysis. Azactam 1 gram q.24 hours. Vascular workup as ordered. Will follow with you. Discussed with the . Job#: [id number] EV
[2018-08-17] MEDS ORDERED: SODIUM CHLORIDE 0.9% 250ML 500 ML IV PRN (18:00)
[2018-08-17] MEDS ORDERED: SODIUM CHLORIDE 0.9% 1000ML 2,000 ML IV PRN (18:00)
[2018-08-17] MEDS ORDERED: ALBUMIN 25% 12.5GM 0.25 GM/ML BTL IV PRN (18:00)
[2018-08-17] MEDS ORDERED: HEPARIN SOD (PORCINE) 1000 UNIT/ML SDV IV PRN (18:00)
[2018-08-17] MEDS ORDERED: SODIUM CHLORIDE 0.9% 250ML 250 ML ONE (21:21)
[2018-08-17] MEDS: ATORVASTATIN 20 MG TAB PO SCH (21:35)
[2018-08-17] MEDS: VANCOMYCIN 1GM/NS 250 ML 250 ML IV SCH (21:45)
[2018-08-18] VITALS (22 sets, daily range): BP systolic 84–176; BP diastolic 53–96
[2018-08-18 05:06] LABS: BASOPHILS % 0.3 % (0.0-1.0); EOSINOPHILS # (AUTO) 0.1 (0.0-0.4); EOSINOPHILS % 0.9 % (0.0-6.0); HEMATOCRIT 32.1 % (38.2-49.6); HEMOGLOBIN 10.3 g/dL (14.0-18.0); LYMPHOCYTES # (AUTO) 1.1 (1.0-3.2); LYMPHOCYTES % 9.5 % (18.0-39.1); MEAN CORPUSCULAR HGB CONC 32.1 g/dL (31-35); MEAN CORPUSCULAR VOLUME 112.2 fL (81-99); MONOCYTES # (AUTO) 0.9 (0.2-0.8); MONOCYTES % 8.1 % (4.4-11.3); NEUTROPHILS # (AUTO) 9.2 (2.1-6.9); NEUTROPHILS % 80.7 % (38.7-80.0); PLATELET COUNT 316 x10e3/uL (140-360); RED BLOOD COUNT 2.86 x10e6/uL (4.3-5.7); RED CELL DISTRIBUTION WIDTH 17.7 % (11.7-14.4)
[2018-08-18 05:26] LABS: INR 1.05; PROTHROMBIN TIME 14.6 seconds (11.9-14.5)
[2018-08-18 05:27] LABS: PARTIAL THROMBOPLASTIN TIME 34.7 seconds (23.8-35.5)
[2018-08-18 05:43] LABS: ALBUMIN 3.2 g/dL (3.5-5.0); ALBUMIN/GLOBULIN RATIO 0.7 (0.8-2.0); ANION GAP 20.7 mmol/L (8-16); CALCIUM 9.4 mg/dL (8.4-10.2); CREATININE, SERUM 4.85 mg/dL (0.72-1.25); POTASSIUM 4.7 mmol/L (3.5-5.1)
--- NOTE | 2018-08-18 07:42 | Progress Note ---
DATE: August 18, 2018 SUBJECTIVE: Patient seen at bedside, having some discomfort to the left lower extremity. OBJECTIVE: Vitals: Afebrile. Pulse rate 157, respirations 20. Blood pressure 114/94, O2 saturation 93%. Left lower extremity is looking about the same. Pregangrenous changes noted to the forefoot aspect of the left foot all digits. Pedal pulses are diminished bilaterally. ASSESSMENT: Peripheral arterial disease with pregangrene. PLAN: Will continue offloading. Continue local wound care. Patient will be evaluated by vascular for possible bypass surgery if possible. Will continue to follow. Continue conservative treatment with IV antibiotics and local wound care. Job#: [id number]
[2018-08-18] MEDS: LACTOBACILLUS ACIDOPHILUS CAPSULE PO SCH ×3 (08:41→17:43)
[2018-08-18] MEDS: AZTREONAM (AZACTAM) 0.5 GM in SODIUM CHLORIDE 0.9% 50ML 50 ML IV SCH (08:41)
[2018-08-18] MEDS: PANTOPRAZOLE SOD 40 MG TABEC PO SCH (08:41)
[2018-08-18] MEDS: HYDRALAZINE HCL 100 MG TABLET PO SCH ×3 (08:41→21:00)
[2018-08-18] MEDS: PRIMIDONE 50 MG TAB PO SCH ×3 (08:42→21:10)
[2018-08-18] MEDS: NIFEDIPINE CR 30 MG TAB PO SCH (08:42)
[2018-08-18] MEDS: CALCITRIOL 0.25 MCG CAP PO SCH (08:42)
[2018-08-18] MEDS: METOPROLOL TARTRATE 50 MG TAB PO SCH ×2 (08:42→17:43)
[2018-08-18] MEDS: ISOSORBIDE DINITRATE 20 MG TAB PO SCH ×2 (08:42→17:43)
[2018-08-18] MEDS: INSULIN LISPRO 100 UNIT/1 ML 3ML VIAL SQ SCH ×4 (08:43→21:11)
[2018-08-18] MEDS ORDERED: CLOPIDOGREL BISULFATE 75 MG TAB PO SCH (09:00)
[2018-08-18] MEDS ORDERED: ASPIRIN 81 MG ENTERIC COATED PO SCH (09:00)
[2018-08-18] MEDS: NYSTATIN 15 GM POWDER UD BTL TP SCH ×3 (09:00→21:01)
[2018-08-18] MEDS ORDERED: LIDOCAINE HCL 2% LOCAL 20 ML VIAL ONE ×2 (09:27→11:16)
[2018-08-18] MEDS ORDERED: IOPAMIDOL 300MG/ML 100 ML INFUS..BTL IV ONE ×2 (09:27→11:13)
[2018-08-18] MEDS ORDERED: HEPARIN SOD (PORCINE) 1000 UNIT/ML 30ML ONE (09:27)
[2018-08-18] MEDS ORDERED: HEPARIN SOD/SOD CHLORIDE 2,000 ML ONE (09:27)
[2018-08-18] MEDS ORDERED: NITROGLYCERIN/D5W 200 MCG/ML 250 ML ONE (09:28)
[2018-08-18] MEDS ORDERED: SODIUM CHLORIDE 0.9% 1000ML 1,000 ML ONE (09:29)
[2018-08-18] MEDS ORDERED: MIDAZOLAM HCL 2 MG/2 ML VIAL ONE (09:56)
[2018-08-18] MEDS ORDERED: FENTANYL CITRATE/PF 100MCG/2 ML INJ ONE (09:56)
[2018-08-18] MEDS ORDERED: CLOPIDOGREL BISULFATE 75 MG TAB ONE ×2 (11:42→11:43)
[2018-08-18] MEDS ORDERED: ASPIRIN 325 MG TAB ONE (11:43)
--- NOTE | 2018-08-18 13:25 | Progress Note ---
DATE: August 18, 2018 CARDIOLOGY PROGRESS NOTE SUBJECTIVE: No complaints. PHYSICAL EXAMINATION VITAL SIGNS: Temperature 96.8 degrees, heart rate 96, respiratory rate 18, blood pressure 130/80, O2 sat 92% on nasal cannula at 3 liters per minute. GENERAL: No acute distress. Alert. NECK: No JVD. CHEST: Clear to auscultation. CARDIOVASCULAR: Irregularly irregular rate and rhythm. Normal S1 and S2. ABDOMEN: Soft. Nontender. EXTREMITIES: Abnormal pedal and dorsalis pedis pulses bilaterally. Erythema of forefoot bilaterally. Gangrenous changes to toe tips on the left foot. CARDIOVASCULAR MEDICATIONS 1. Nifedipine extended release 60 mg daily. 2. Metoprolol tartrate 50 mg b.i.d. 3. Isosorbide dinitrate 20 mg b.i.d. 4. Clopidogrel 75 mg daily. 5. Hydralazine 100 mg t.i.d. 6. Aspirin 81 mg daily. 7. Atorvastatin 20 mg nightly. STUDIES: White blood cells 11.4, hemoglobin 10.3, platelets 316. INR 1.05. Creatinine 4.8. Sodium 139, potassium 4.7, chloride 101, bicarbonate 22, BUN 38. AST 21, ALT 35, LDL 14, HDL 34, total cholesterol 68. TELEMETRY: Atrial fibrillation. ASSESSMENT 1. Critical limb ischemia with early gangrene to toe tips, left lower extremity, status post blunt trauma of 2nd, 3rd, 4th and 5th toes. 2. Chronic heart failure, unspecified. 3. Hypertension. 4. End-stage renal disease on scheduled hemodialysis. 5. Atrial fibrillation. 6. History of prior lower extremity revascularizations. RECOMMENDATIONS: Underwent right common iliac artery RADIAL DRILL PRESS OPERATOR FOR PLASTIC in area of in-stent restenosis of 70% with excellent results and left common iliac artery RADIAL DRILL PRESS OPERATOR FOR PLASTIC and stent for 90% area of stenosis with less than 10% residual stenosis and excellent results. Has residual severe disease affecting bilateral femoral vessels with chronic total occlusion of a heavily calcified right common femoral artery and heavily calcified, subtotally occluded left common femoral artery with tandem mid to distal 70%, 70% and 99% stenoses. Three-vessel runoff with diffuse, small-caliber, 60% disease of all 3 [id number]-[id number] vessels to the left lower extremity. The right lower extremity vessels are not well visualized. At this point, continue dual antiplatelet therapy with aspirin and Plavix. Will need long-term anticoagulation for atrial fibrillation. Given 7-Japanese sheaths bilaterally today, consider initiating anticoagulation tomorrow depending on progression. Will need staged intervention to the left femoral artery and at a later date to the right femoral artery. Discussed extensively with the patient and family members. Thank you for the opportunity to participate in the care of Mr. Odonnell. We will follow closely. Job#: [id number]
--- NOTE | 2018-08-18 15:46 | Operative Report ---
DATE OF PROCEDURE: August 18, 2018 PROCEDURE INDICATIONS: Critical limb ischemia with early gangrene changes to the left 2nd, 3rd, 4th and 5th toes status post blunt trauma and abnormal Doppler ultrasound concerning for aortoiliac level disease. PROCEDURES PERFORMED 1. Abdominal aortogram. 2. Selective lower extremity angiography, bilateral. 3. Left common iliac artery percutaneous transluminal angioplasty and stent using a 7.0 x 40 LifeStent postdilated with a 6.0 x 40 SHREDDER/GRANULATOR OPERATOR balloon. 4. Additional percutaneous transluminal angioplasty of the right common iliac artery (an additional vessel). 5. Manual pressure hemostasis to each of bilateral common femoral arteries. PROCEDURE COMPLICATIONS: None. ESTIMATED BLOOD LOSS: Less than 15 mL. PROCEDURE SUMMARY: After consent was obtained, patient was prepped and draped in a sterile fashion and the right femoral site was locally infiltrated with 2% lidocaine. Access was obtained with micropuncture, and a short 6-Belarusian sheath was placed. An Omni Flush catheter was positioned in the distal descending abdominal aorta, and angiography was performed with digital subtraction. Additional selective angiography of the right lower extremity was performed with runoff from the common femoral artery. Additional angiography to the left lower extremity was afterwards performed, and once the left common femoral artery was accessed and a 7-Belarusian sheath was placed to the left common femoral artery and the right common femoral artery sheath was upgraded to a 7-Belarusian sheath. Over Advantage wires and with heparin to maintain an ACT over 250, additional aspirin 325 mg and Plavix 600 mg, a SHREDDER/GRANULATOR OPERATOR with a 6.0 x 40 Bard balloon to 8 atmospheres was performed across the in-stent restenosis area of the right common iliac artery previous stent. Additional kissing balloon angioplasty was performed to the left common iliac artery using a 6.0 x 100 Bard balloon to 8 atmospheres. This was followed by a self-expanding LifeStent, a 7.0 x 40, deployed to the left common iliac artery, covering the area of stenosis in the ostial segment. This was postdilated with a 6.0 x 40 Bard balloon. Final angiography reveals less than 10% residual stenosis above the aortoiliac bifurcation with SONIA 3 flow, no flow-limiting dissections, no perforations, overall improvement in hemodynamics and gradient on further assessment with resolution of over a 30-point gradient to the left common femoral artery post intervention. ANGIOGRAPHIC FINDINGS: The bilateral renal arteries have 50% stenosis ostially. The infrarenal abdominal aorta is heavily calcified with areas of 30% stenosis. The right common iliac artery has 70% ostial in-stent restenosis. The left common iliac artery has 90% ostial stenosis. There is 70% stenosis of the right internal iliac artery and 60% stenosis of the left internal iliac artery. The left external iliac artery has 50% to 60% diffuse disease. The right external iliac artery has 30% stenosis. The common femorals and profunda femorals have disease less than 50% with moderate calcifications. The right superficial femoris artery is 100% occluded proximal to mid with heavy calcifications. Distally it fills via collaterals from the profunda femoris. The [id number] vessels to the right lower extremity are only faintly visualized in the proximal segment due to dye dilution. The left external femoral artery has tandem lesions of 70%, 70% and 99% subtotal stenosis with heavy calcifications. There is 3-vessel runoff. However, these cxhce-wpi-wdyn vessels are small, diffusely diseased 60% to 70%, and heavily calcified (left anterior tibial, left peroneal and left posterior tibial arteries). CONCLUSION: Successful left common iliac artery stent with a 7.0 x 40 LifeStent and percutaneous transluminal angioplasty of additional vessel right common iliac artery with excellent results. RECOMMENDATIONS 1. Aspirin and Plavix. 2. Staged intervention to the left femoral artery at a later date as outpatient and consider staged intervention to the right SFA PAINTING CONTRACTOR at a later date. Job#: [id number] EV
[2018-08-18] MEDS: MUPIROCIN 2% OINT 22 GM TUBE TOP SCH (21:01)
[2018-08-18] MEDS: ATORVASTATIN 20 MG TAB PO SCH (21:10)
[2018-08-19] VITALS (7 sets, daily range): BP systolic 122–161; BP diastolic 54–80
[2018-08-19] MEDS: INSULIN LISPRO 100 UNIT/1 ML 3ML VIAL SQ SCH ×4 (07:30→21:50)
[2018-08-19] MEDS ORDERED: ERGOCALCIFEROL 50,000 UNIT CAP PO SCH (09:00)
[2018-08-19] MEDS: HYDRALAZINE HCL 100 MG TABLET PO SCH ×3 (09:00→21:49)
[2018-08-19] MEDS: ISOSORBIDE DINITRATE 20 MG TAB PO SCH ×2 (09:00→17:00)
[2018-08-19] MEDS: METOPROLOL TARTRATE 50 MG TAB PO SCH ×2 (09:00→16:52)
[2018-08-19] MEDS: LACTOBACILLUS ACIDOPHILUS CAPSULE PO SCH ×3 (09:07→16:52)
[2018-08-19] MEDS: PANTOPRAZOLE SOD 40 MG TABEC PO SCH (09:07)
[2018-08-19] MEDS: PRIMIDONE 50 MG TAB PO SCH ×3 (09:08→21:49)
[2018-08-19] MEDS: BALSAM PERU/CASTOR OIL 5 GM OINT...G. TP SCH (10:05)
[2018-08-19] MEDS: MUPIROCIN 2% OINT 22 GM TUBE TOP SCH (10:05)
[2018-08-19] MEDS: NYSTATIN 15 GM POWDER UD BTL TP SCH ×3 (10:05→21:49)
--- NOTE | 2018-08-19 11:12 | Progress Note ---
DATE: August 19, 2018 SUBJECTIVE: Patient is seen at bedside accompanied by and nurse. Has some cyanosis noted to the forefoot aspect of left foot secondary to his peripheral arterial disease with decreased pain. Pregangrenous changes noted to the left foot distal aspect of all toes, a little bit better. Patient had an angioplasty done per Dr. Renteria several days ago. OBJECTIVE VITAL SIGNS: Afebrile, pulse rate 69, respirations 20, blood pressure 126/75, O2 saturation 95%. LABS: Noted. Has a white blood cell count of 11.4, hemoglobin 10.3 with a platelet count of 316. ASSESSMENT: Peripheral arterial disease with pregangrenous changes. PLAN: We will continue local wound care. Continue offloading as best as possible. Has developed a little lesion to the posterior aspect of the right heel. Will start applying Bactroban ointment to that affected area covered by diluted wet-to-dry Betadine. Patient and patient's instructed that the prognosis is guarded secondary to his circulation. Job#: [id number] NICKY
[2018-08-19] MEDS ORDERED: TEMAZEPAM 15 MG CAP PO PRN (11:15)
--- NOTE | 2018-08-19 13:35 | Progress Note ---
DATE: August 19, 2018 CARDIOLOGY PROGRESS NOTE SUBJECTIVE: Sleeping comfortably, undergone dialysis today. PHYSICAL EXAMINATION VITAL SIGNS: Temperature 96.6, heart rate 51, respiratory rate 20, blood pressure 122/54, and O2 sat 95%. GENERAL: In no acute distress. Alert. NECK: No JVD. CHEST: Clear to auscultation. CARDIOVASCULAR: Irregular rate and rhythm. Normal S1 and S2. No S3, no S4. ABDOMEN: Soft. EXTREMITIES: Second, third, fourth, and fifth toe tip pre-gangrene. CARDIOVASCULAR MEDICATIONS: Reviewed. 1. Aspirin 81 mg daily. 2. Metoprolol tartrate 50 mg b.i.d. 3. Isosorbide dinitrate 20 mg b.i.d. 4. Clopidogrel 75 mg daily. 5. Heparin p.r.n. STUDIES: Reviewed for today. Glucose 193. TELEMETRY: An atrial fibrillation with controlled ventricular response, some occasional episodes of RVR into the 120s. ASSESSMENT 1. Severe multilevel peripheral arterial disease, now status post iliac intervention, has kissing stents. 2. Residual right femoral popliteal occlusion and left femoral subtotal stenosis, heavy calcifications and couple with small vessel diffused and heavily calcified infragenicular vessel disease. 3. Atrial fibrillation. 4. Heart failure, unspecified. 5. Hypertension. 6. End-stage renal disease. RECOMMENDATIONS 1. Initiate Eliquis for AFib thromboembolic risk reduction. Can continue clopidogrel 75 mg daily and discontinue aspirin. 2. We will need outpatient followup for stage intervention to left lower extremity femoral popliteal segment via antegrade approach complex procedure. 3. Continue rest of cardiovascular medications. 4. Full care per Dr. Haskins's expert care. Job#: [id number] JANUARY
[2018-08-19] MEDS ORDERED: SODIUM CHLORIDE 0.9% 250ML 250 ML ONE ×2 (15:49→15:54)
[2018-08-19] MEDS: VANCOMYCIN 1GM/NS 250 ML 250 ML IV SCH (16:05)
[2018-08-19] MEDS: CLOPIDOGREL BISULFATE 75 MG TAB PO SCH (16:05)
[2018-08-19] MEDS: CALCITRIOL 0.25 MCG CAP PO SCH (16:05)
[2018-08-19] MEDS: APIXAB 2.5 MG TABLET PO SCH (16:52)
[2018-08-19] MEDS: NIFEDIPINE CR 30 MG TAB PO SCH (16:52)
[2018-08-19] MEDS: AZTREONAM (AZACTAM) 0.5 GM in SODIUM CHLORIDE 0.9% 50ML 50 ML IV SCH (18:28)
[2018-08-19] MEDS: ATORVASTATIN 20 MG TAB PO SCH (21:49)
[2018-08-20] VITALS (7 sets, daily range): BP systolic 99–137; BP diastolic 56–80
[2018-08-20] MEDS: INSULIN LISPRO 100 UNIT/1 ML 3ML VIAL SQ SCH ×4 (07:30→21:44)
[2018-08-20] MEDS: PRIMIDONE 50 MG TAB PO SCH ×3 (08:24→21:40)
[2018-08-20] MEDS: PANTOPRAZOLE SOD 40 MG TABEC PO SCH (08:24)
[2018-08-20] MEDS: APIXAB 2.5 MG TABLET PO SCH ×2 (08:24→17:05)
[2018-08-20] MEDS: ISOSORBIDE DINITRATE 20 MG TAB PO SCH ×2 (08:24→17:06)
[2018-08-20] MEDS: CALCITRIOL 0.25 MCG CAP PO SCH (08:24)
[2018-08-20] MEDS: CLOPIDOGREL BISULFATE 75 MG TAB PO SCH (08:24)
[2018-08-20] MEDS: LACTOBACILLUS ACIDOPHILUS CAPSULE PO SCH ×3 (08:24→17:06)
[2018-08-20] MEDS: METOPROLOL TARTRATE 50 MG TAB PO SCH ×2 (08:26→17:06)
[2018-08-20] MEDS: HYDRALAZINE HCL 100 MG TABLET PO SCH ×3 (08:26→21:40)
[2018-08-20] MEDS: NIFEDIPINE CR 30 MG TAB PO SCH (08:28)
[2018-08-20] MEDS: NYSTATIN 15 GM POWDER UD BTL TP SCH ×3 (09:18→21:40)
[2018-08-20] MEDS: AZTREONAM (AZACTAM) 0.5 GM in SODIUM CHLORIDE 0.9% 50ML 50 ML IV SCH (09:46)
[2018-08-20] MEDS: BALSAM PERU/CASTOR OIL 5 GM OINT...G. TP SCH (14:01)
[2018-08-20] MEDS: MUPIROCIN 2% OINT 22 GM TUBE TOP SCH (14:01)
--- NOTE | 2018-08-20 15:08 | Progress Note ---
DATE: August 20, 2018 CARDIOLOGY PROGRESS NOTE SUBJECTIVE: No complaints. PHYSICAL EXAMINATION VITAL SIGNS: Temperature 96.8, heart rate 103, respiratory rate 16, blood pressure 127/69, and O2 sat 95% on room air. GENERAL: No acute distress, alert. NECK: No JVD. CHEST: Clear to auscultation. CARDIOVASCULAR: Regular rate and rhythm. Normal S1 and S2. No S3, no S4. No murmurs or rubs. ABDOMEN: Soft, nontender, nondistended. EXTREMITIES: Left lower extremity second, third, fourth, and fifth toe tips with black discoloration. Right heel with small size abrasion. TELEMETRY: Atrial fibrillation with predominantly controlled ventricular response. ASSESSMENT 1. Severe multilevel coronary artery disease, status post iliac intervention with kissing stents, pending staged revascularization of femoral arteries right first and left heavily calcified disease, complex anatomy. 2. Atrial fibrillation, on Eliquis. 3. Hypertension. 4. End-stage renal disease. 5. Heart failure, unspecified, chronic. RECOMMENDATIONS 1. Continue current cardiovascular medications. 2. Outpatient staged intervention. 3. Outpatient echocardiogram. 4. Eliquis and clopidogrel. Job#: [id number] ESTEBAN
--- NOTE | 2018-08-20 16:17 | Progress Note ---
DATE: August 20, 2018 SUBJECTIVE: Patient is seen at bedside, doing better. Decreased pain and tenderness to the left lower extremity. Denies any history of fever, chills, nausea, or vomiting. OBJECTIVE VITAL SIGNS: Afebrile. Pulse rate 103, respirations 16, blood pressure 127/69, O2 saturation 95%. EXTREMITIES: There is decreased cellulitis to the forefoot aspect of the left foot, cellulitis to the posterior aspect of left heel. Pedal pulses diminished. Skin temperature between warm and cool to touch. No cyanosis noted on this date. ASSESSMENT 1. Peripheral artery disease. 2. Pregangrenous changes noted to the forefoot aspect of all toes, left foot, with grade 1 ulceration posterior aspect, left heel. PLAN: We will continue Bactroban ointment followed by diluted wet-to-dry Betadine. Continue offloading as best as possible. We will continue to follow. Continue IV vancomycin. Job#: [id number] LPA
[2018-08-20] MEDS: ATORVASTATIN 20 MG TAB PO SCH (21:40)
[2018-08-21] VITALS (7 sets, daily range): BP systolic 114–142; BP diastolic 69–85
[2018-08-21] MEDS: INSULIN LISPRO 100 UNIT/1 ML 3ML VIAL SQ SCH ×4 (07:30→21:46)
[2018-08-21] MEDS: APIXAB 2.5 MG TABLET PO SCH ×2 (08:59→17:17)
[2018-08-21] MEDS: HYDRALAZINE HCL 100 MG TABLET PO SCH ×3 (08:59→21:00)
[2018-08-21] MEDS: LACTOBACILLUS ACIDOPHILUS CAPSULE PO SCH ×3 (08:59→17:18)
[2018-08-21] MEDS: PANTOPRAZOLE SOD 40 MG TABEC PO SCH (08:59)
[2018-08-21] MEDS: AZTREONAM (AZACTAM) 0.5 GM in SODIUM CHLORIDE 0.9% 50ML 50 ML IV SCH (08:59)
[2018-08-21] MEDS: ISOSORBIDE DINITRATE 20 MG TAB PO SCH ×2 (09:00→17:18)
[2018-08-21] MEDS: NIFEDIPINE CR 30 MG TAB PO SCH (09:00)
[2018-08-21] MEDS: METOPROLOL TARTRATE 50 MG TAB PO SCH ×2 (09:00→17:18)
[2018-08-21] MEDS: CALCITRIOL 0.25 MCG CAP PO SCH (09:00)
[2018-08-21] MEDS: CLOPIDOGREL BISULFATE 75 MG TAB PO SCH (09:00)
[2018-08-21] MEDS: PRIMIDONE 50 MG TAB PO SCH ×3 (09:00→21:20)
--- NOTE | 2018-08-21 10:06 | Progress Note ---
DATE: August 21, 2018 SUBJECTIVE: Patient seen at bedside accompanied by daughter. Doing better. Decreased pain to the left lower extremity. OBJECTIVE: Vitals: Afebrile. Pulse rate 67, respirations 16, blood pressure 142/85, O2 saturation 96%. Left lower extremity is looking somewhat better. Pregangrenous changes noted to all toes. Skin temperature is actually warm to touch to left lower extremity, cool to touch to the right. ASSESSMENT: Peripheral arterial disease with pregangrenous changes noted to the distal aspect of all toes of left foot with a grade-2 ulcer on the posterior aspect of the left heel. PLAN: Continue offloading. Continue dressing with Bactroban ointment. Daughter instructed to wrap the left foot with a blanket but not put the blanket on top of the toes to alleviate the amount of pressure on the toe area. Job#: [id number]
[2018-08-21] MEDS: NYSTATIN 15 GM POWDER UD BTL TP SCH ×3 (10:47→21:20)
[2018-08-21] MEDS: BALSAM PERU/CASTOR OIL 5 GM OINT...G. TP SCH (10:47)
[2018-08-21] MEDS: MUPIROCIN 2% OINT 22 GM TUBE TOP SCH (10:47)
--- NOTE | 2018-08-21 12:32 | Progress Note ---
DATE: August 21, 2018 CARDIOLOGY PROGRESS NOTE SUBJECTIVE: No complaints. PHYSICAL EXAMINATION VITAL SIGNS: Temperature 96.2, heart rate 67, respiratory rate 16, blood pressure 142/85, O2 sat 96% on nasal cannula. GENERAL: No acute distress. LUNGS: Clear to auscultation. CARDIOVASCULAR: Irregular rate and rhythm. Normal S1 and S2. Systolic ejection murmur /6. ABDOMEN: Soft, nontender. EXTREMITIES: Left 2nd, 3rd, 4th and 5th toes with tip gangrene. Warmer left lower extremity. Cold right distal forefoot. CARDIOVASCULAR MEDICATIONS: Reviewed. 1. Clopidogrel 75 mg daily. 2. Nifedipine 60 mg daily. 3. Metoprolol tartrate 50 mg b.i.d. 4. Isosorbide dinitrate 20 mg b.i.d. 5. Apixaban 2.5 mg b.i.d. 6. Hydralazine 100 mg t.i.d. 7. Atorvastatin 20 mg nightly. 8. Heparin p.r.n. per catheter. 9. Antibiotic vancomycin. LABS: White blood cells 11.4, hemoglobin 10.3, platelets 316. That is from 08/18/2018. No recent labs for today other than glucose 156. TELEMETRY: Atrial fibrillation with controlled ventricular response. ASSESSMENT 1. Peripheral arterial disease with severe multilevel disease, now status post iliac intervention with plan for staged intervention to the left first and then right femoral vessels at a later date as an outpatient. 2. Atrial fibrillation on Eliquis. 3. Hypertension. 4. End-stage renal disease. 5. Heart failure, unspecified, chronic. RECOMMENDATIONS 1. Continue current cardiovascular medications. 2. Outpatient staged intervention to peripheral vessels as described above. 3. Outpatient echocardiogram. 4. Continue Eliquis and clopidogrel. Job#: [id number]
[2018-08-21] MEDS: ATORVASTATIN 20 MG TAB PO SCH (21:20)
[2018-08-22] VITALS: BP 120/70
[2018-08-22 04:00] VITALS: BP 128/61
[2018-08-22 08:00] VITALS: BP 116/75
[2018-08-22 08:03] VITALS: BP 116/75
[2018-08-22] MEDS: LACTOBACILLUS ACIDOPHILUS CAPSULE PO SCH ×3 (08:41→16:51)
[2018-08-22] MEDS: PANTOPRAZOLE SOD 40 MG TABEC PO SCH (08:41)
[2018-08-22] MEDS: APIXAB 2.5 MG TABLET PO SCH ×2 (08:41→16:50)
[2018-08-22] MEDS: PRIMIDONE 50 MG TAB PO SCH ×2 (08:41→16:51)
[2018-08-22] MEDS: CLOPIDOGREL BISULFATE 75 MG TAB PO SCH (08:42)
[2018-08-22] MEDS: INSULIN LISPRO 100 UNIT/1 ML 3ML VIAL SQ SCH ×2 (08:42→12:30)
[2018-08-22] MEDS: CALCITRIOL 0.25 MCG CAP PO SCH (08:42)
[2018-08-22] MEDS: METOPROLOL TARTRATE 50 MG TAB PO SCH ×2 (09:00→16:51)
[2018-08-22] MEDS: BALSAM PERU/CASTOR OIL 5 GM OINT...G. TP SCH (09:00)
[2018-08-22] MEDS: ISOSORBIDE DINITRATE 20 MG TAB PO SCH ×2 (09:00→16:50)
[2018-08-22] MEDS: NIFEDIPINE CR 30 MG TAB PO SCH (09:00)
[2018-08-22] MEDS: HYDRALAZINE HCL 100 MG TABLET PO SCH ×2 (09:00→16:50)
[2018-08-22] MEDS: NYSTATIN 15 GM POWDER UD BTL TP SCH ×2 (09:00→16:50)
[2018-08-22] MEDS: MUPIROCIN 2% OINT 22 GM TUBE TOP SCH (09:00)
[2018-08-22 09:06] LABS: BASOPHILS % 0.3 % (0.0-1.0); EOSINOPHILS # (AUTO) 0.1 (0.0-0.4); EOSINOPHILS % 1.1 % (0.0-6.0); HEMATOCRIT 30.8 % (38.2-49.6); HEMOGLOBIN 9.7 g/dL (14.0-18.0); LYMPHOCYTES # (AUTO) 1.2 (1.0-3.2); LYMPHOCYTES % 10.9 % (18.0-39.1); MEAN CORPUSCULAR HEMOGLOBIN 35.5 pg (28-32); MEAN CORPUSCULAR HGB CONC 31.5 g/dL (31-35); MEAN CORPUSCULAR VOLUME 112.8 fL (81-99); MONOCYTES # (AUTO) 0.7 (0.2-0.8); MONOCYTES % 6.7 % (4.4-11.3); NEUTROPHILS # (AUTO) 8.7 (2.1-6.9); NEUTROPHILS % 80.4 % (38.7-80.0); PLATELET COUNT 302 x10e3/uL (140-360); RED BLOOD COUNT 2.73 x10e6/uL (4.3-5.7)
[2018-08-22 09:16] LABS: ANION GAP 25.7 mmol/L (8-16); CALCIUM 8.1 mg/dL (8.4-10.2); CREATININE, SERUM 7.84 mg/dL (0.72-1.25); POTASSIUM 5.7 mmol/L (3.5-5.1)
--- NOTE | 2018-08-22 10:16 | Progress Note ---
DATE: August 22, 2018 SUBJECTIVE: Patient was seen at bedside accompanied by spouse. Doing somewhat better. Decreased pain to the left lower extremity. OBJECTIVE VITALS: Afebrile, pulse rate 96, respirations 18, blood pressure 120/61, O2 saturation 95%. EXTREMITIES: Pregangrenous changes to the left toes looking somewhat better. Stabilizing. Ulceration to the posterior aspect of the left heel still hurting, but better, measuring less than 2 cm in diameter. Has a blood glucose of 161. White blood cell count 10.8 and hemoglobin 9.7. ASSESSMENT 1. Grade 2 ulcer posterior aspect of left heel. 2. Peripheral artery disease with pregangrenous changes noted to the left foot. PLAN: Will continue local wound care. Continue offloading. Continue IV antibiotics. Will continue to follow. Job#: [id number] MANDY
[2018-08-22 12:00] VITALS: BP 142/73
[2018-08-22] MEDS ORDERED: ACETAMINOPHEN 325 MG TAB PO PRN (14:15)
--- NOTE | 2018-08-22 15:28 | Discharge Summary ---
CONSULTANTS: 1. Dr. Mykel Robledo. 2. Dr. Roni Haskins. 3. Dr. Kwadwo Dong. 4. Dr. Gibran Renteria. FINAL DIAGNOSES: 1. Left foot with multiple toe infected diabetic foot ulcer. 2. Peripheral arterial disease status post angiogram with successful left common iliac artery stent with a 7 x 40 LifeStent and percutaneous transluminal angioplasty additional vessel in the right common iliac artery with excellent result. 3. Baseline multiple medical problems including end-stage renal disease on dialysis, hypertension, diabetes type 2 on insulin therapy. SUMMARY: A 78-year-old male failed outpatient treatment for left lower extremity infected diabetic foot ulcer. The patient had multiple ulcers to the toe area. Patient was admitted. IV antibiotic initiated, vancomycin and Azactam. Patient then subsequently underwent angiogram done by Dr. Gibran Renteria. Patient had intervention as mentioned. He had a stent to the left common iliac artery. He also had angioplasty of the left and the right common iliac artery as well. The patient is stable at this time. He will go home today. He will follow up as an outpatient for repeated blood work. The patient will resume his home medications the same. Patient will follow up sooner if needed on Tuesday or otherwise Tuesday. The patient is stable for discharge home today after dialysis. Discharged home with Keflex 500 mg twice a day for 10 days and Cipro 500 mg daily for 10 days. Job#: [id number] EV
[2018-08-22 16:00] VITALS: BP 168/84
[2018-08-22] MEDS ORDERED: KEFLEX500 MG PO (16:21)
[2018-08-22] MEDS ORDERED: CIPRO500 MG PO (16:22)
[2018-08-22] MEDS: AZTREONAM (AZACTAM) 0.5 GM in SODIUM CHLORIDE 0.9% 50ML 50 ML IV SCH (16:36)
--- NOTE | 2018-08-23 00:25 | Progress Note ---
DATE: August 22, 2018 CARDIOLOGY PROGRESS NOTE SUBJECTIVE: No complaints. Continue clinical intermittent dialysis. PHYSICAL EXAMINATION VITAL SIGNS: Temperature 97 degrees, heart rate 78, blood pressure 142/73, respiratory rate 20, O2 sat 91% on nasal cannula. GENERAL: No acute distress. LUNGS: Clear to auscultation. EXTREMITIES: Right upper extremity proximal stump noted. Right lower extremity below the knee cold, however, no active wounds at this point. Left lower extremity warm, however, wounds noted to 2nd, 3rd, 4th and 5th digits at the tips, with gangrenous changes. CARDIOVASCULAR MEDICATIONS: Reviewed. 1. Atorvastatin 20 mg nightly. 2. Clopidogrel 75 mg daily. 3. Nitroglycerin p.r.n. 4. Isosorbide dinitrate 20 mg b.i.d. 5. Nifedipine 60 mg daily. 6. Hydralazine 100 mg t.i.d. 7. Eliquis 2.5 mg b.i.d. STUDIES: Potassium trending down to 5.7, creatinine 7.8, hemoglobin 9.7, platelets 302,000. INR 1.05. Normal transaminases. ASSESSMENT 1. Peripheral arterial disease, status post iliac kissing stents with planned outpatient staged intervention to the left superficial femoral artery and on later date, can consider staged intervention to right superficial femoral artery chronic total occlusion. 2. Atrial fibrillation, on Eliquis anticoagulation and rate control strategy. Will need to hold anticoagulation Eliquis for 48 to 72 hours preceding any interventions. Provided the patient with this instruction. 3. Dyslipidemia, continue statin. 4. Hypertension, continue current cardiovascular medications. 5. History of heart failure, unspecified, chronic. Outpatient echocardiogram advised. 6. End-stage renal disease, continue scheduled dialysis and the patient advised to follow up in the office within 1 to 2 weeks. Job#: [id number]
== END 2018-08-22 20:11 | disposition home or self-care (01) | DRG 252 ==
LOC: ER 16:21 → ERHOLD 21:36 → MED/SURG3 22:30
PROVIDERS: ADMIT Internal Medicine; ATTEND Internal Medicine
PROC: 5A1D70Z Performance of Urinary Filtration, Intermittent, Less than 6 Hours Per Day (ICD-10-PCS; principal; 2018-08-17)
PROC: 047C3ZZ Dilation of Right Common Iliac Artery, Percutaneous Approach (ICD-10-PCS; 2018-08-18)
PROC: 047D3DZ Dilation of Left Common Iliac Artery with Intraluminal Device, Percutaneous Approach (ICD-10-PCS; 2018-08-18)
PROC: 5A1D70Z Performance of Urinary Filtration, Intermittent, Less than 6 Hours Per Day (ICD-10-PCS; 2018-08-19)
PROC: 5A1D70Z Performance of Urinary Filtration, Intermittent, Less than 6 Hours Per Day (ICD-10-PCS; 2018-08-22)
DX: E11.52 Type 2 diabetes mellitus with diabetic peripheral angiopathy with gangrene (principal); N18.6 End stage renal disease; I96 Gangrene, not elsewhere classified; L03.116 Cellulitis of left lower limb; I13.2 Hypertensive heart and chronic kidney disease with heart failure and with stage 5 chronic kidney disease, or end stage renal disease; E11.22 Type 2 diabetes mellitus with diabetic chronic kidney disease; Z99.2 Dependence on renal dialysis; E87.5 Hyperkalemia; I48.91 Unspecified atrial fibrillation; E11.621 Type 2 diabetes mellitus with foot ulcer; L97.529 Non-pressure chronic ulcer of other part of left foot with unspecified severity; E11.42 Type 2 diabetes mellitus with diabetic polyneuropathy; Z89.201 Acquired absence of right upper limb, unspecified level; E78.5 Hyperlipidemia, unspecified; D63.1 Anemia in chronic kidney disease; Z79.4 Long term (current) use of insulin; Z87.891 Personal history of nicotine dependence; I50.9 Heart failure, unspecified; G20 Parkinson's disease; F02.80 Dementia in other diseases classified elsewhere, unspecified severity, without behavioral disturbance, psychotic disturbance, mood disturbance, and anxiety; G47.00 Insomnia, unspecified
CPT/HCPCS: 36415; 37221; 37222; 75625; 75716; 80048; 80053; 80061; 82948; 84100; 85025; 85347; 85610; 85730; 86705; 86706; 87340; 90962; 93005; 93925; 96372; 99284; C1725; C1766; C1769; J1644; J2001; J2250; J3370; J7030; J7050; J7799; Q9967

== ENCOUNTER 2018-09-06 06:23 | Observation (INO) | payer MEDICARE, OTHER ==
[2018-09-06] VITALS (25 sets, daily range): BP systolic 134–173; BP diastolic 59–97
[~2018-09-06] VITALS: Ht 185.4 cm; Wt 77.1 kg
[~2018-09-06 06:23] MED LIST changes: +ACIDOPHILUS1 EAC1 PO; +CIPRO500 MG PO; +COQ 10 PO; +KEFLEX500 MG PO; +MIRALAX PO; +ROPINIROLE HCL; +ROPINIROLE HCL PO; +SEVELAMER CARBONATE PO; +VITAMIN C500 M1 PO; +VITAMIN D250000 UNIT PO
[2018-09-06] MEDS ORDERED: CLOPIDOGREL BISULFATE 75 MG TAB ONE ×2 (07:18→08:08)
[2018-09-06] MEDS ORDERED: ASPIRIN 325 MG TAB ONE (07:18)
[2018-09-06 07:33] LABS: BASOPHILS % 0.4 % (0.0-1.0); EOSINOPHILS # (AUTO) 0.3 (0.0-0.4); EOSINOPHILS % 2.3 % (0.0-6.0); HEMATOCRIT 37.6 % (38.2-49.6); HEMOGLOBIN 12.1 g/dL (14.0-18.0); LYMPHOCYTES % 9.5 % (18.0-39.1); MEAN CORPUSCULAR HEMOGLOBIN 35.6 pg (28-32); MEAN CORPUSCULAR HGB CONC 32.2 g/dL (31-35); MEAN CORPUSCULAR VOLUME 110.6 fL (81-99); MONOCYTES # (AUTO) 0.7 (0.2-0.8); MONOCYTES % 6.6 % (4.4-11.3); NEUTROPHILS # (AUTO) 8.8 (2.1-6.9); NEUTROPHILS % 80.6 % (38.7-80.0); PLATELET COUNT 322 x10e3/uL (140-360); RED CELL DISTRIBUTION WIDTH 16.5 % (11.7-14.4)
[2018-09-06 07:44] LABS: INR 0.94; PROTHROMBIN TIME 13.4 seconds (11.9-14.5)
[2018-09-06 07:45] LABS: PARTIAL THROMBOPLASTIN TIME 30.3 seconds (23.8-35.5)
[2018-09-06 07:52] LABS: ALBUMIN 3.2 g/dL (3.5-5.0); ALBUMIN/GLOBULIN RATIO 0.7 (0.8-2.0); ANION GAP 16.9 mmol/L (8-16); CHOL/HDL RATIO 2.1 (3.9-4.7); CREATININE, SERUM 6.4 mg/dL (0.72-1.25); POTASSIUM 4.9 mmol/L (3.5-5.1)
[2018-09-06] MEDS ORDERED: DOXEPIN HCL25 MG PO (08:28)
[2018-09-06] MEDS ORDERED: eliquis PO (08:28)
[2018-09-06] MEDS ORDERED: CLINDAMYCIN HC150 MG (08:28)
[2018-09-06] MEDS ORDERED: NYSTOP60 GM (08:28)
[2018-09-06] MEDS ORDERED: HEPARIN SOD/SOD CHLORIDE 2,000 ML ONE (09:21)
[2018-09-06] MEDS ORDERED: IOPAMIDOL 300MG/ML 100 ML INFUS..BTL IV ONE (09:21)
[2018-09-06] MEDS ORDERED: LIDOCAINE HCL 1% LOCAL INJ 20 ML VIAL ONE (09:22)
[2018-09-06] MEDS ORDERED: IOPAMIDOL 300MG/ML 50ML INFUS..BTL IV ONE ×2 (09:22→09:29)
[2018-09-06] MEDS ORDERED: FENTANYL CITRATE/PF 100MCG/2 ML INJ ONE (09:32)
[2018-09-06] MEDS ORDERED: SODIUM CHLORIDE 0.9% 1000ML 1,000 ML ONE ×2 (09:32→10:34)
[2018-09-06] MEDS ORDERED: MIDAZOLAM HCL 2 MG/2 ML VIAL ONE (09:32)
[2018-09-06] MEDS ORDERED: HEPARIN SOD (PORCINE) 1000 UNIT/ML 30ML ONE (10:35)
[2018-09-06] MEDS ORDERED: NITROGLYCERIN/D5W 200 MCG/ML 250 ML ONE (10:35)
[2018-09-06] MEDS ORDERED: VERAPAMIL HCL 2.5 MG/ML 2 ML VIAL ONE (10:35)
--- NOTE | 2018-09-17 23:20 | Operative Report ---
DATE OF PROCEDURE: September 06, 2018 PROCEDURE INDICATION: Critical limb ischemia with left foot wound and known critical vascular disease with staged SFA intervention. PROCEDURES PERFORMED: 1. Selective lower extremity angiography, unilateral. 2. Third-order catheter placement from left common femoral artery to left popliteal artery for selective angiography. 3. Left femoropopliteal CSI atherectomy with 1.5 Solid Fraser, 60,000 rpm. 4. Drug-eluting balloon angioplasty of left subclavian and popliteal artery with Lutonix balloons. 5. Manual pressure hemostasis. 6. Ultrasound was used for access. PROCEDURE COMPLICATIONS: None. ESTIMATED BLOOD LOSS: Less than 15 mL. PROCEDURE SUMMARY: After consent was obtained, patient was prepped and draped in a sterile fashion and the left common femoral artery was accessed with micropuncture and under ultrasound guidance via antegrade approach. A 6-Monegasque sheath was placed and heparin was used to maintain an ACT over 250. Aspirin and Plavix were also used for preloading. NaviCross catheter was positioned under distal left popliteal artery for selective angiography of lower extremity vessels confirming adequate runoff. It was decided to exchange wires to a Viper wire via catheter, which was positioned in distal left anterior tibial artery. CSI atherectomy of the left SFA and left popliteal artery was performed with 1.5 Solid Fraser and 60,000 rpm in slow passes on various attempts. After atherectomy, pre-dilatation with Ultraverse 5 x 220 mm balloon was performed up to 6 atmospheres, followed by serial Lutonix drug-eluting balloons across the target lesions mainly 5 x 150 and 6 x 150. Final angiographic results are excellent with initial SFA stenosis of 70% and popliteal stenosis of 99%. Postprocedure, stenosis less than 30%, SONIA-3 flow, no dissections, no perforation with 3-vessel runoff. CONCLUSION: Successful revascularization of left superficial femoral artery via antegrade approach. RECOMMENDATIONS: Aspirin and Plavix. Manual pressure hemostasis. Job#: [id number] DR BERMUDEZ
== END 2018-09-06 21:18 | disposition home or self-care (01) ==
LOC: CATH LAB 06:23 → CATH LAB V 15:14 → MED/SURG3 17:55 → CATH LAB V 17:57 → MED/SURG3 18:23
PROVIDERS: ADMIT Internal Medicine Cardiovascular Disease; ATTEND Internal Medicine Cardiovascular Disease
DX: I70.202 Unspecified atherosclerosis of native arteries of extremities, left leg (principal); I25.83 Coronary atherosclerosis due to lipid rich plaque; I48.0 Paroxysmal atrial fibrillation; E78.5 Hyperlipidemia, unspecified; E11.22 Type 2 diabetes mellitus with diabetic chronic kidney disease; I12.0 Hypertensive chronic kidney disease with stage 5 chronic kidney disease or end stage renal disease; N18.6 End stage renal disease; Z01.810 Encounter for preprocedural cardiovascular examination; Z01.812 Encounter for preprocedural laboratory examination; Z79.4 Long term (current) use of insulin; Z79.82 Long term (current) use of aspirin; Z85.828 Personal history of other malignant neoplasm of skin; Z82.49 Family history of ischemic heart disease and other diseases of the circulatory system; Z83.3 Family history of diabetes mellitus
CPT/HCPCS: 36415; 37225; 75710; 80053; 80061; 85025; 85347; 85610; 85730; 93005; C1724; C1725 ×3; C2623; G0378; J1644; J2001; J2250; J7030; Q9967 ×2; 36246; C1766

== ENCOUNTER 2018-10-17 23:00 | Emergency (ER) | payer MEDICARE, OTHER ==
[~2018-10-17] VITALS: Ht 185.4 cm; Wt 77.1 kg
[~2018-10-17 23:00] MED LIST changes: +CLINDAMYCIN HC150 MG; +DOXEPIN HCL25 MG PO; +NYSTOP60 GM; +eliquis PO
--- NOTE | 2018-10-18 01:06 | Diagnostic Imaging Report ---
EXAMINATION: Head CT without contrast. HISTORY:Status post fall. COMPARISON:None. TECHNIQUE: Multidetector axial images were obtained from the foramen magnum to the vertex without contrast. The images were reconstructed using brain and bone algorithms. Thin section brain images were reformatted into coronal and sagittal planes. Dose modulation, iterative reconstruction, and/or weight based adjustment of the mA/kV was utilized to reduce the radiation dose to as low as reasonably achievable. Intravenous contrast: None IMAGE QUALITY: Acceptable. FINDINGS: Skull/scalp: No lytic or blastic. lesions. No surgical changes. Parenchyma: No nonspecific bilateral frontoparietal confluent periventricular, subcortical and deep white matter hypodensity are likely related to small vessel ischemic changes. No acute hemorrhage, mass or acute major vascular territorial infarct. Arteries: No density suggestive of thrombosis. Atherosclerotic calcification in bilateral carotid siphon and V4 segment of the vertebral arteries. Dural sinuses: No abnormal density suggestive of thrombosis. Ventricles: No hydrocephalus or displacement. Extra-axial spaces: No abnormal density. Brain volume: Normal for age. Craniocervical junction: No mass, Chiari malformation, or basilar invagination. Sella: No mass. Paranasal/mastoid sinuses: Small polyp in left frontal sinus. Near complete opacification of left mastoid air cells. Incidental finding: Nonspecific mild asymmetric soft tissue prominence in left nasopharynx is partially visualized. May represent retained secretions or soft tissue mass in appropriate clinical setting. IMPRESSION: 1. No acute posttraumatic intracranial abnormality. 2. Moderate supratentorial white matter microvascular ischemic changes. 3. Incidental mild soft tissue prominence in left nasopharynx is partially visualized may represent retained secretion or soft tissue neoplasm in appropriate clinical setting. Signed by: Dr. Ann Marie Murcia M.D. on 10/18/2018 1:03 AM
--- NOTE | 2018-10-18 01:10 | Diagnostic Imaging Report ---
History: Status post fall. Comparison studies: None Technique: Axial images were obtained through the cervical region.. Coronal and sagittal images reconstructed from the axial data. Dose modulation, iterative reconstruction, and/or weight based adjustment of the mA/kV was utilized to reduce the radiation dose to as low as reasonably achievable. Intravenous contrast: None Findings: Fractures: None. Soft tissue injuries: None. Atlantoaxial articulation: Intact. Alignment: Normal lordosis. No scoliosis. Cervicomedullary junction: No abnormalities. The foramen magnum is patent. Soft tissues: Nonspecific mild asymmetric soft tissue prominence in left nasopharynx with associated near complete opacification of left mastoid air cells. Mild partial opacification of right mastoid air cells. Vertebrae: No fractures, infection or neoplasm. Degenerative changes: C3-C4: Mild left foraminal stenosis due to facet and uncovertebral arthrosis. C5-C6: Mild degenerative disc disease. Severe right and mild left foraminal stenosis due to facet and uncovertebral arthrosis. C6-C7: Severe right foraminal stenosis due to facet and uncovertebral arthrosis. C7-T1: Severe right foraminal stenosis due to facet and uncovertebral arthrosis. IMPRESSION: 1. No acute cervical spine fracture or dislocation. 2. Ligament, spinal cord and or vascular abnormalities cannot be excluded on the basis of this examination. 3. Cervical spondylosis as detailed above. Signed by: Dr. Ann Marie Murcia M.D. on 10/18/2018 1:07 AM
--- NOTE | 2018-10-18 01:38 | Diagnostic Imaging Report ---
EXAM: CT CHEST WO, CT ABDOMEN/PELVIS WO INDICATION: Status post fall, left lower quadrant pain COMPARISON: None. TECHNIQUE: Chest, abdomen and pelvis were scanned utilizing a multidetector helical scanner from the lung apex to the pubic symphysis. Coronal and sagittal reformations were obtained. CT low dose techniques were utilized, as applicable. IV CONTRAST: None mL Isovue 300/370 FINDINGS: Lack of IV contrast decreases sensitivity in evaluating for traumatic injury and assessment of the abdominal and pelvic organs. LINES and TUBES: Right chest wall central venous catheter terminates near the cavoatrial junction. LUNGS/AIRWAYS/PLEURA: There are moderate bilateral effusions with associated atelectasis. 6 mm right upper lobe pulmonary nodule on image 18. HEART AND MEDIASTINUM: Cardiomegaly with severe coronary artery and aortic atherosclerotic calcification. Main pulmonary artery is slightly enlarged, 3.4 cm. Scattered prominent mediastinal nodes, likely reactive. No mediastinal hematoma. HEPATOBILIARY/GALLBLADDER: No focal lesions or hematoma. SPLEEN: No splenomegaly or hematoma. PANCREAS: No masses or ductal dilation. ADRENALS: Diffuse thickening. No hematoma. KIDNEYS/URETERS: No perinephric hematoma. Diffuse bilateral vascular calcifications. No hydronephrosis. GI TRACT: Small hiatal hernia. No obstruction or wall thickening. No evidence of appendicitis. PELVIC ORGANS/BLADDER: Prostatomegaly with mild circumferential bladder wall thickening which can be seen with chronic outlet obstruction. LYMPH NODES: No suspicious adenopathy. VESSELS: Severe atherosclerotic calcifications throughout the vasculature. PERITONEUM / RETROPERITONEUM: Mild edema. No fluid collection or free air. BONES/SOFT TISSUES: Subacute appearing fractures of the left 11th and 12th posterior ribs without significant displacement. IMPRESSION: Evaluation for traumatic injury degraded by lack of IV contrast 1. Given this, no evidence of acute internal traumatic injury. 2. Subacute appearing fractures of the left posterior 11th and 12th ribs. 3. Cardiomegaly with moderate pleural effusions. 4. Indeterminate 6 mm right upper lobe pulmonary nodule. Recommend 6-12 month follow-up. Signed by: Dr Evelyn Norwood MD on 10/18/2018 1:34 AM
[2018-10-18] MEDS ORDERED: HYDROCODONE/APAP 5MG-325MG TAB PO ONE (01:45)
[2018-10-18 02:14] VITALS: BP 138/79
== END 2018-10-18 03:00 | disposition home or self-care (01) ==
LOC: ER 23:00
DX: S22.42XA Multiple fractures of ribs, left side, initial encounter for closed fracture (principal); W06.XXXA Fall from bed, initial encounter; Y92.003 Bedroom of unspecified non-institutional (private) residence as the place of occurrence of the external cause; E11.22 Type 2 diabetes mellitus with diabetic chronic kidney disease; E11.40 Type 2 diabetes mellitus with diabetic neuropathy, unspecified; I12.0 Hypertensive chronic kidney disease with stage 5 chronic kidney disease or end stage renal disease; N18.6 End stage renal disease; Z79.4 Long term (current) use of insulin; Z99.2 Dependence on renal dialysis; K21.9 Gastro-esophageal reflux disease without esophagitis; G25.0 Essential tremor; I73.9 Peripheral vascular disease, unspecified; E78.00 Pure hypercholesterolemia, unspecified; Z85.828 Personal history of other malignant neoplasm of skin; Z79.02 Long term (current) use of antithrombotics/antiplatelets; Z79.82 Long term (current) use of aspirin; Z89.202 Acquired absence of left upper limb, unspecified level
CPT/HCPCS: 70450; 71250; 72125; 74176; 99283

== ENCOUNTER 2018-11-01 07:50 | Inpatient (IN) | payer MEDICARE, OTHER ==
[~2018-11-01] VITALS: Ht 182.9 cm; Wt 67.3 kg
[2018-11-01] MEDS ORDERED: HYDROXYZINE HCL25 MG PO (08:50)
[2018-11-01] MEDS ORDERED: FEXOFENADINE H180 MG PO (08:50)
--- NOTE | 2018-11-01 09:12 | Diagnostic Imaging Report ---
PROCEDURE: A single AP view of the chest. COMPARISON: None. INDICATIONS: WEAKNESS, FX HIP FINDINGS: Lines/tubes: Right tunneled hemodialysis catheter with tip overlying the SVC. Lungs: Mild pulmonary vascular congestion. Pleura: Small left pleural effusion. Heart and mediastinum: The heart is enlarged. Bones: No acute bony abnormality. Old right clavicle fracture. IMPRESSION: Mild pulmonary vascular congestion. Dnezel Benjamin D.O. Dictated by: Denzel Benjamin D.O. on 11/01/2018 at 9:22 Electronically approved by: Denzel Benjamin D.O. on 11/01/2018 at 9:22
--- NOTE | 2018-11-01 09:19 | Diagnostic Imaging Report ---
CT LUMBAR SPINE WO HISTORY: Fall COMPARISON: CT of the abdomen/pelvis 10/18/2018 TECHNIQUE: Axial CT images of the lumbar spine were obtained without contrast. Coronal and sagittal reconstructions obtained from the axial data. One or more of the following dose reduction techniques were used: Automated exposure control, adjustment of the mA and/or kV according to patient size, and/or utilization of iterative reconstruction technique. DISCUSSION: Mild bone demineralization limits evaluation. There are 5 nonrib-bearing lumbar vertebral bodies. Lumbar lordosis is preserved. There is no significant scoliosis or subluxation. No definite acute fracture or compression deformity is seen. No gross spinal canal mass is seen. The paravertebral and paraspinal soft tissues are unremarkable. Mild multilevel spondylotic changes are present. There are mild degenerative changes in the bilateral sacroiliac joints. Perinephric fat stranding is partially visualized. Aortoiliac calcified atherosclerosis is present. Associated aortoiliac stent is partially visualized. IMPRESSION: 1. No acute osseous abnormalities. 2. Mild multilevel spondylosis. Mild bilateral sacroiliac degenerative changes. Signed by: Dr. Robin Del Cid M.D. on 11/01/2018 9:16 AM
--- NOTE | 2018-11-01 09:44 | Diagnostic Imaging Report ---
PROCEDURE:CT PELVIS WITHOUT CONTRAST COMPARISON:None. INDICATIONS:Fall TECHNIQUE:CT images were created without intravenous contrast utilizing low dose technique with dose reduction emphasis. Multiplanar coronal and sagittal reformations were accomplished. DLP: 837.94 mGy-cm FINDINGS: Bony osteopenia is present. There is diffuse vascular calcification. Bilateral common iliac artery stents are present. There is a nondisplaced left femoral neck intertrochanteric fracture. This is only visualized on the axial images. Coronal images showed emphasis of the bony pelvis and not the hips. Contrast within the rectosigmoid loops from a prior contrast exam is present. Calcification within the prostate and seminal vesicles. CONCLUSION:Nondisplaced left femoral neck intertrochanteric fracture. Denzel Benjamin D.O. Dictated by: Denzel Benjamin D.O. on 11/01/2018 at 9:54 Electronically approved by: Denzel Benjamin D.O. on 11/01/2018 at 9:54
--- NOTE | 2018-11-01 09:47 | NUR ---
Pt is AA&Ox4. No distress and denies pain at this time. Will monitor.
[2018-11-01 12:03] LABS: BASOPHILS % 0.4 % (0.0-1.0); EOSINOPHILS # (AUTO) 0.2 (0.0-0.4); EOSINOPHILS % 1.8 % (0.0-6.0); HEMATOCRIT 33.6 % (38.2-49.6); HEMOGLOBIN 10.8 g/dL (14.0-18.0); LYMPHOCYTES # (AUTO) 1.2 (1.0-3.2); LYMPHOCYTES % 13.1 % (18.0-39.1); MEAN CORPUSCULAR HEMOGLOBIN 35.9 pg (28-32); MEAN CORPUSCULAR HGB CONC 32.1 g/dL (31-35); MEAN CORPUSCULAR VOLUME 111.6 fL (81-99); MONOCYTES % 11.1 % (4.4-11.3); NEUTROPHILS # (AUTO) 6.8 (2.1-6.9); NEUTROPHILS % 73.2 % (38.7-80.0); PLATELET COUNT 256 x10e3/uL (140-360); RED BLOOD COUNT 3.01 x10e6/uL (4.3-5.7); RED CELL DISTRIBUTION WIDTH 17.5 % (11.7-14.4)
[2018-11-01 12:12] LABS: BILIRUBIN,URINE NEGATIVE (NEGATIVE); CLARITY,URINE CLEAR (CLEAR); COLOR,URINE YELLOW (YELLOW); KETONES,URINE NEGATIVE (NEGATIVE); LEUKOCYTE ESTERASE ,URINE NEGATIVE (NEGATIVE); NITRITE,URINE NEGATIVE (NEGATIVE); PROTEIN,URINE DIPSTICK 2+ (NEGATIVE); URINE UROBILINOGEN 0.2 mg/dL (0.2 - 1)
[2018-11-01 12:15] LABS: INR 1.05; PROTHROMBIN TIME 14.7 seconds (11.9-14.5)
[2018-11-01 12:26] LABS: ALBUMIN 3.2 g/dL (3.5-5.0); ALBUMIN/GLOBULIN RATIO 0.8 (0.8-2.0); ANION GAP 19.9 mmol/L (8-16); CALCIUM 9.7 mg/dL (8.4-10.2); CREATININE, SERUM 6.45 mg/dL (0.72-1.25); POTASSIUM 5.9 mmol/L (3.5-5.1)
[2018-11-01] MEDS ORDERED: FENTANYL CITRATE/PF 100MCG/2 ML INJ IV ONE ×2 (12:30→18:45)
[2018-11-01 12:35] LABS: WBC,URINE (MAN) 0-5 /HPF (0-5)
[2018-11-01 12:36] LABS: BACTERIA,URINE RARE /HPF; EPITHELIAL CELLS,URINE RARE /LPF
--- NOTE | 2018-11-01 13:40 | Consultation ---
DATE OF CONSULTATION: November 01, 2018 CARDIOLOGY CONSULTATION REFERRING PHYSICIAN: Orion Preciado REASON FOR CONSULTATION: Perioperative cardiovascular evaluation. HISTORY OF PRESENT ILLNESS: Mr. Odonnell is a pleasant 78-year-old man well known to me with a history of hypertension, diabetes mellitus, type 2, on insulin therapy, end-stage renal disease, history of ischemic colitis, chronic severe systolic heart failure, Parkinson disease, peripheral arterial disease, status post revascularization to his left lower extremity, and paroxysmal atrial fibrillation, on Eliquis, who recently sustained a rib fracture after a mechanical fall, now presenting via the emergency department after a mechanical fall. The patient denied any loss of consciousness or syncope with a resulting left hip fracture. Orthopedic surgery has evaluated the patient, and are considering surgery. We have been asked to evaluate for perioperative assessment. Murtaza denies any chest discomfort or shortness of breath to his limited activities. He is most of the time in a bedbound status. Ambulates short distances without any reported symptoms lately. He denies any recent fainting spells or palpitations. He complains of left lower extremity discomfort. Echocardiogram has been ordered, and is being currently done at bedside. ALLERGIES: NO KNOWN DRUG ALLERGIES. SOCIAL HISTORY: Lives with spouse who is at bedside. Denies smoking, alcohol or drugs. Has good family support. FAMILY HISTORY: Noncontributory. HOME MEDICATIONS: Include amiodarone, aspirin, Lipitor, carvedilol, clonidine, clopidogrel, digoxin, hydralazine, , isosorbide dinitrate, metoprolol, nifedipine, levodopa, Primidone, Protonix, gabapentin, and Eliquis. PHYSICAL EXAMINATION VITALS: Temperature is 98.6, heart rate 98, respiratory rate 18, blood pressure 124/84, O2 sat 97% on room air. GENERAL: In no acute distress. Alert. NECK: No JVD. CHEST: Clear to auscultation bilaterally. CARDIOVASCULAR: Regular rate and rhythm. Normal S1 and S2. No S3. No S4. Systolic ejection murmur of 2/6. ABDOMEN: Soft and nontender. EXTREMITIES: Trace edema in left lower extremity. Warm left foot. Right foot cold with intact skin. STUDIES: Reviewed. White blood cells 9.2, hemoglobin 10.8 and platelets 256,000. INR 1.05. Sodium 135, potassium 5.9, chloride 97, bicarbonate 24, BUN 66, creatinine 6.4, glucose 80. Calcium 9.7. Total bilirubin 0.7, AST 23, ALT 16, alk phos 105, total protein 7.4, albumin 3.2. Chest x-ray with mild pulmonary vascular congestion. EKG reviewed. ASSESSMENT 1. Left hip fracture. 2. Atrial fibrillation, on recent Eliquis use. 3. Peripheral vascular disease: Status post recent left iliac and recent superficial femoral artery revascularizations, on dual antiplatelet therapy. 4. Mechanical fall. 5. Severe systolic heart failure, chronic with left ventricular ejection fraction of less than 20% on echocardiogram done today. 6. Aortic valve stenosis. 7. Hypertension. 8. Diabetes mellitus. 9. End-stage renal disease. RECOMMENDATIONS 1. Discontinue Eliquis. 2. Continue beta blockers. 3. Volume management per nephrology. 4. Complex case. Has high risk for adverse cardiovascular outcomes with surgery. Suggest evaluating alterative etiologies for surgical approach depending on orthopedics expertise if decision is surgery is his best course of action. Perioperative beta ikna and ICU management and serial enzymes throughout this period would be advisable. The patient will have to be monitored very closely peripherally with CV anesthesia during surgery. Echocardiogram being done was completed. Will review further. Would suggest holding off any type of surgical intervention after 48 hours post Eliquis last dose. Job#: [id number] MANDY BERMUDEZ
--- NOTE | 2018-11-01 14:17 | NUR ---
Pt is informed of progress through system for admission. Pt relays understanding of waiting for a bed for admission, and general information about plan of care. He states his pain remains reduced and tolerable (01/21). VSS. Will monitor and admit when room available.
--- NOTE | 2018-11-01 15:00 | Diagnostic Imaging Report ---
EXAM: FEMUR 2 VIEWS MINIMUM LEFT DATE: 11/01/2018 10:40 AM INDICATION: Fall COMPARISON: None FINDINGS: There is an oblique nondisplaced intertrochanteric fracture. Advanced vascular calcifications and mild left hip degenerative changes present. IMPRESSION: Nondisplaced left intertrochanteric hip fracture. Signed by: Dr. Cole Arango MD on 11/01/2018 2:56 PM
--- NOTE | 2018-11-01 15:00 | Diagnostic Imaging Report ---
EXAM: PELVIS AP 1-2 VIEWS DATE: 11/01/2018 10:40 AM INDICATION: Fall COMPARISON: None FINDINGS: Nondisplaced left intertrochanteric hip fracture. Common iliac vascular stents and advanced vascular calcifications present. IMPRESSION: Nondisplaced left intertrochanteric hip fracture. Signed by: Dr. Cole Arango MD on 11/01/2018 2:57 PM
--- NOTE | 2018-11-01 17:23 | NUR ---
Orthopedic Consultation 11/01/2018 5:10pm Patient seen and examined resting at bedside. Patient is a 78 year old community ambulating male who presented to the ED after a mechanical fall with c omplaints of left hip pain and an inability to ambulate. He denies any loss of consciousness, numbness, paresthesias or loss of distal motor function. Denies pain in any other extremity. Pain localized to left hip Past Med Hx: Tremors, Diabetes, ESRD on HD, HTN, Skin Ca, Left Rib Fx 11 & 12 Surg Hx: Multiple ports for HD, Right Arm Amputation (childhood), Left Lower Extremity Revascularization SocHx: Former Tob, Denies EtOH, Denies Drugs Allergies NKDA Medications: See Medical List- on Eliquis & Plavix Fam Hx: Non-contributory VS Temp 98.6, HR 115, RR 19, BP 134/94, O2 Sat 94% Gen: Alert, Awake and Oriented, Uncomfortable secondary to pain Left Lower Extremity: No open lesions or sores, no gross deformity, Unable to straight leg raise Motor: EHL, FHL, TA, G/S Sensation grossly intact Pulses: + DP, Post tib Compartments soft Negative calf tendernesss Xrays of Left Hip demonstrate - non displaced intertrochanteric hip fracture 78 year old male with left non-dispaced intertrochanteric hip fracture Follow up am labs Plan for OR for left hip IMN when medically optimized Analgesics Bedrest DVT Prophylaxis NPO except meds after midnight if patient cleared for tomorrow Hold anticoagulation after midnight IVF while NPO as per medicine Patient and family aware and amendable to plan.
[2018-11-01] MEDS: METOPROLOL TARTRATE 50 MG TAB PO SCH (17:44)
--- NOTE | 2018-11-01 18:00 | NUR ---
Report received from Wayne MARTÍNEZ, ER nurse. Wayne aware of K5.9. States "ER doctor knows about potassium. Patient has HD Tuesday, , Tuesday"
[2018-11-01 20:12] VITALS: BP 124/72
[2018-11-01 20:20] VITALS: BP 124/72
--- NOTE | 2018-11-01 20:22 | NUR ---
CALL PLACED TO DR DEVLIN PROMPTED TO LEAVE MESSAGE,MESSAGE LEFT WITH CALL BACK NUMBER.
--- NOTE | 2018-11-01 21:29 | NUR ---
CALL PLACED TO DR DEVLIN AGAIN AT THIS TIME TO NOTIFY PT HAS ESRD ON DIALYSIS(T,TR,SAT) BUT THERE IS NO RENAL CONSULT,N/O'S RECEIVED.
--- NOTE | 2018-11-01 21:33 | NUR ---
CALLED ANSWERING SERVICE FOR DR ZARATE AND NOTIFIED ABOUT NEW CONSULT.
[2018-11-01] MEDS ORDERED: ULTRAM50 MG PO (21:41)
[2018-11-01] MEDS: ATORVASTATIN 20 MG TAB PO SCH (21:55)
[2018-11-01] MEDS ORDERED: NITROGLYCERIN 0.4 MG SUBL SL PRN (22:15)
[2018-11-01] MEDS ORDERED: POLYETHYLENE GLYCOL 3350 17 GM PACK PO PRN (22:45)
--- NOTE | 2018-11-01 23:35 | NUR ---
CALL PLACED TO DR WEST TO NOTIFY PT'S HEART RATE,N/O RECEIVED.
[2018-11-01 23:45] VITALS: BP 123/69
[2018-11-01] MEDS ORDERED: METOPROLOL TARTRATE INJ 1 MG/ML VIAL IV ONE (23:55)
[2018-11-01] MEDS: TRAMADOL HCL 50 MG TAB PO PRN (23:55)
[2018-11-02] VITALS (7 sets, daily range): BP systolic 123–156; BP diastolic 69–81
[2018-11-02] MEDS: TRAMADOL HCL 50 MG TAB PO PRN ×2 (05:55→09:37)
[2018-11-02] MEDS: COQ PO SCH (08:17)
[2018-11-02] MEDS: SEVELAMER CARBONATE 800 MG TAB PO SCH ×3 (08:17→17:00)
[2018-11-02] MEDS: FLAXSEED 1000 MG PO SCH (08:18)
[2018-11-02] MEDS: PANTOPRAZOLE SOD 40 MG TABEC PO SCH (08:31)
[2018-11-02] MEDS: PRIMIDONE 50 MG TAB PO SCH ×2 (08:31→17:00)
[2018-11-02] MEDS: METOPROLOL TARTRATE 50 MG TAB PO SCH ×2 (08:31→17:00)
[2018-11-02] MEDS: LACTOBACILLUS ACIDOPHILUS CAPSULE PO SCH ×6 (08:31→21:45)
[2018-11-02] MEDS ORDERED: SODIUM CHLORIDE 0.9% 1000ML 2,000 ML ONE (08:31)
[2018-11-02] MEDS: LORATADINE 10 MG TAB PO SCH (08:31)
[2018-11-02] MEDS: ERGOCALCIFEROL 50,000 UNIT CAP PO SCH (08:31)
[2018-11-02] MEDS: CALCITRIOL 0.25 MCG CAP PO SCH (08:32)
[2018-11-02] MEDS: ASCORBIC ACID 500 MG TAB PO SCH (08:32)
[2018-11-02] MEDS: INSULIN DETEMIR 100 UNIT/ML PEN SQ SCH ×2 (08:39→17:00)
--- NOTE | 2018-11-02 08:47 | NUR ---
Patient starting hemodialysis at this time
[2018-11-02] MEDS ORDERED: MANNITOL 25% 12.5GM/50 ML VIAL IV PRN (09:00)
[2018-11-02] MEDS ORDERED: ASPIRIN 81 MG CHEW TAB PO SCH (09:00)
[2018-11-02] MEDS ORDERED: HEPARIN SOD (PORCINE) 1000 UNIT/ML SDV IV PRN (09:00)
[2018-11-02] MEDS ORDERED: SODIUM CHLORIDE 0.9% 250ML 500 ML IV PRN (09:00)
[2018-11-02] MEDS ORDERED: ALBUMIN 25% 12.5GM 0.25 GM/ML BTL IV PRN (09:00)
[2018-11-02] MEDS ORDERED: DEXTROSE 50% SYRINGE 50 ML IV PRN (09:15)
--- NOTE | 2018-11-02 09:35 | NUR ---
Orthopedic Progress Note 11/02/18 9:32a Patient seen and examined at bedside. Complains of pain in left hip. No acute events overnight VS 98.2 HR 96, RR 22, BP 147/78, O2 Sat 98% Left lower extremity Externally rotated Motor: + EHL, FHL, TA, G/S Sensation grossly intact to light touch Pulse + DP, Post tib Compartments soft Negative calf tenderness 78 yo M with Non-displaced Left Intertrochanteric Hip Fracture Plan for medical optimization prior to OR tomorrow morning NPO except meds after midnight IVF while NPO as per medicine No anticoagulation after midnight Bedrest Analgesics PRN Awaiting medical clearance prior to OR
[2018-11-02] MEDS: EPOETIN ALFA 10000 UNIT/ML VIAL SC SCH (10:00)
--- NOTE | 2018-11-02 11:25 | Consultation ---
DATE OF CONSULTATION: RENAL CONSULTATION ADMITTING PHYSICIAN: Orion Preciado MD REASON FOR CONSULTATION: End-stage renal disease. HISTORY OF PRESENT ILLNESS: This 78-year-old male, with history of end-stage renal disease on hemodialysis Tuesday, and Tuesday at [facility], presented to [facility] after suffering a fall. The patient was found to have a left hip fracture and was admitted. Nephrology consultation was called. REVIEW OF SYSTEMS: As above. All other systems negative except for pain in his right hip. PAST MEDICAL HISTORY 1. End-stage renal disease on hemodialysis Tuesday, and Tuesday. 2. Diabetes, type 2. 3. Congestive heart failure, diastolic. 4. Carotid endarterectomy. 5. Right arm avulsion following a bear attack at age 4. 6. Hypertension. 7. History of shingles. 8. Fracture of the right shoulder due to a fall. 9. Essential tremors. 10. History of squamous carcinoma. 11. Osteoarthritis. 12. Bilateral carotid artery surgery. 13. Arm surgery. 14. Knee surgery. 15. Right arm amputation. 16. Angioplasty. 17. Skin cancer. 18. Right hip fracture. PAST SURGICAL HISTORY: As above. SOCIAL HISTORY: No tobacco. No alcohol. No IV drugs. FAMILY HISTORY: No family history of kidney disease. ALLERGIES: NO KNOWN DRUG ALLERGIES. CURRENT MEDICATIONS: See list. PHYSICAL EXAMINATION VITALS: Blood pressure 147/78, pulse 97, temperature 98.2, respiratory rate 12. GENERAL: No apparent distress. HEENT: Oropharynx is clear. No scleral icterus. No periorbital edema. NECK: Supple. Elevated jugular venous pressure. CHEST: Decreased breath sounds at the bases anteriorly bilaterally. CARDIOVASCULAR: Regular rhythm. No murmurs or rubs. ABDOMEN: Soft. Positive bowel sounds. No tenderness. EXTREMITIES: 1+ edema. LABS: Sodium 135, potassium 5.9, chloride 97, CO2 24, BUN 66, creatinine 6.45, albumin 3.2. White count 9.25, hemoglobin 10.8, hematocrit 33.6, platelets 256. IMAGING: Nondisplaced left anterior trochanteric hip fracture. ASSESSMENT AND PLAN 1. End-stage renal disease. Patient is to start hemodialysis today. Will continue Tuesday, and Tuesday. 2. Anemia secondary to chronic kidney disease. Will start the patient on Epogen to keep his hemoglobin 10 to 11.5. 3. Hyperkalemia. Will correct with hemodialysis. 4. Diabetes per primary team. 5. Left hip fracture. Orthopedic consultation has been called. Job#: [id number]
[2018-11-02] MEDS: INSULIN LISPRO 100 UNIT/1 ML 3ML VIAL SQ SCH ×3 (11:30→21:00)
--- NOTE | 2018-11-02 11:47 | NUR ---
Wound Care Consultation Murtaza Odonnell 78 year-old male seen for WC evaluation presented to ER with S/P fall in shower at home. Noted X-ray report and CT of pelvis with impression of non displaced intertrochanteric fracture. Family member at bedside. Patient previously being followed by Dr. Spencer for wound care services. No open skin noted to left hip area, bruising +. Left arm disto-medial aspect has history of cancerous mass removal and appears to have resolved. Left Forearm skin tear 0.5x0.5x0.1 covered with non-adhesive dressing. I did however encountered a history of multiple wounds to bilateral feet listed as follows: 1. Right Heel - 1x1.5 with dry scab 2. Left Hallux - 2x2 ulcer with 100% eschar 3. Left foot 3rd, 4th, 5th toes with 100% eschar distally and anteriorly perspectively. HX: DM, ESRD, PVD Labs: WBC; 9.25 Lymph 1.2 Glucose - 80 Albumin - 3.2 L No wound cultures Recommendation: Continue use of bilateral heel protectors or offload heels with pillows while in bed. Place patient on Alternating HARITHA Air mattress. Bilateral foot ulcers - Cleanse wounds with Normal Saline and 4x4 gauze. [place] with betadine and leave open to air. Turn and Reposition patient every 2 hours Addendum: 11/02/18 at 1208 by Efraín Ahuja RN Amended: Links added.
--- NOTE | 2018-11-02 12:44 | NUR ---
Call to Dr. Preciado and orders for [place] PRN and reported elevated BP and stated to resume home meds and were resumed already
[2018-11-02] MEDS: HYDROCODONE/APAP 5MG-325MG TAB PO PRN ×2 (12:55→21:26)
--- NOTE | 2018-11-02 14:27 | NUR ---
Nutrition Screen Note RD Recommendation for Physician: -Continue renal diabetic diet as ordered Plan of Care: RD following, monitoring for tolerance and adequacy Nutrition reason for involvement: Nutrition risk trigger MST Primary Diagnose(s): Non-displaced Left Intertrochanteric Hip Fracture PMH: hypertension, diabetes mellitus, type 2, on insulin therapy, end-stage renal disease on HD, history of ischemic colitis, chronic severe systolic heart failure, Parkinson disease, peripheral arterial disease, status post revascularization to his left lower extremity, paroxysmal atrial fibrillation, right arm amputation Ht: 73in Wt: 170lb BMI: 22.4kg/m2 IBW: 168lb RD Assessment: (11/02) Chart reviewed. Labs and meds reviewed. 78 yo M, who is admitted to the hospital s/p fall. Pt was undergoing HD when I was in the room. Daughter on bedside to provide hx. Per daughter, pt has had great appetite. No change in PO intake or weight loss RADIOLOGIC TECHNOLOGIST MAMMOGRAM. No GI complains noted. LBM 11/02. Pt denies any chewing or swallowing difficulty. Will continue to monitor and follow. Current Diet: renal diabetic diet Malnutrition Evaluation (11/02) The patient does not meet criteria for a specified degree of malnutrition at this time. Will re-evaluate at follow-up as appropriate. Diet Education Needs Assessment: Diet education not indicated. HD for 6 years and followed by RD at the facility. Nutrition Care Level: low Signed: Gabi Greene MS, RD, LD
--- NOTE | 2018-11-02 14:31 | NUR ---
Patient completed hemodialysis at this time and 1 Liter was taken off, BP came down and will monitor.
--- NOTE | 2018-11-02 15:41 | NUR ---
Spoke with Dr. Preciado and orders in place to start Procardia XL and fleet enema. Spoke with Dr. Sandhu to clarify orders for procedure and orders in place for surgical left hip repair on 11/03/18 and will be NPO from midnight.
[2018-11-02] MEDS ORDERED: NIFEDIPINE CR 30 MG TAB PO NR (15:45)
[2018-11-02] MEDS ORDERED: MINERAL OIL 132 ML BTL PR NR (15:45)
--- NOTE | 2018-11-02 16:16 | NUR ---
Patient's signed consent for procedure to be done by Dr. Sandhu tomorrow and consent in the chart
--- NOTE | 2018-11-02 18:12 | Progress Note ---
DATE: November 02, 2018 CARDIOLOGY PROGRESS NOTE SUBJECTIVE: No new complaints. Dialysis ongoing today. Temperature 98.2, heart rate 97, blood pressure 147/78, respiratory rate 22, O2 sat 98%. REVIEW OF SYSTEMS: Denies chest pain. OBJECTIVE GENERAL: No acute distress. Alert. NECK: No JVD. CHEST: Clear to auscultation. CARDIOVASCULAR: Regular rhythm. Normal S1, S2. No S3 or S4. Systolic ejection murmur /6. ABDOMEN: Soft, nontender. EXTREMITIES: With no edema. Decreased right lower extremity pulses, chronic. CARDIOVASCULAR MEDICATIONS: Reviewed. 1. Atorvastatin 40 mg at bedtime. 2. Metoprolol tartrate 50 mg every 12 hours. STUDIES: Reviewed. Potassium is 5.9, bicarbonate 24, creatinine is 6.4, hemoglobin 10.8, platelets 256, INR 1.05, AST 23, ALT 16. ASSESSMENTS 1. Severe systolic heart failure, chronic. 2. Aortic valve stenosis, moderate. 3. Vasculopathy, severe peripheral vascular disease, status post iliac stenting and superficial femoral artery revascularization, recent. 4. Paroxysmal atrial fibrillation. Recently on Eliquis, currently on hold. 5. Status post hip fracture. 6. End-stage renal disease, on scheduled dialysis. 7. Hypertension. 8. Leukopenia. RECOMMENDATIONS: High risk for adverse cardiovascular outcomes with orthopedic surgery, however limited options. I have spoken at length with orthopedic surgery as well as the patient and patient's . They have been informed of elevated risk for adverse cardiovascular outcomes, including , heart attack, stroke, decompensated heart failure, need for prolonged hospital stay, stroke, amongst others. Patient and family voice understanding and wish to proceed with surgery. Decision on surgery timing related to anticoagulant and the platelets is deferred to orthopedic surgery's expertise. beta blockers. Postoperatively advised on resuming aspirin and once hemostasis confirmed, resuming clopidogrel and after the ensuing 3 to 5 day, ensuing Eliquis if hemodynamically stable and patient remains stable. Suggest also trending cardiac enzymes during the perioperative period. Continues telemetry monitoring during perioperative period and ICU stay postoperatively. Will be available as needed to assist in the care of Mr. Odonnell. Job#: [id number] ROBIN
[2018-11-02] MEDS ORDERED: ROPINIROLE HCL 25 MG PO SCH (21:00)
[2018-11-02] MEDS: ATORVASTATIN 20 MG TAB PO SCH (21:45)
[2018-11-03] VITALS (13 sets, daily range): BP systolic 94–134; BP diastolic 40–64
[2018-11-03 06:07] LABS: BASOPHILS # (AUTO) 0.1 (0.0-0.1); BASOPHILS % 0.5 % (0.0-1.0); EOSINOPHILS # (AUTO) 0.1 (0.0-0.4); EOSINOPHILS % 1.3 % (0.0-6.0); HEMATOCRIT 34.2 % (38.2-49.6); LYMPHOCYTES # (AUTO) 1.3 (1.0-3.2); LYMPHOCYTES % 14.5 % (18.0-39.1); MEAN CORPUSCULAR HEMOGLOBIN 35.4 pg (28-32); MEAN CORPUSCULAR HGB CONC 32.2 g/dL (31-35); MONOCYTES # (AUTO) 1.3 (0.2-0.8); NEUTROPHILS # (AUTO) 6.4 (2.1-6.9); PLATELET COUNT 237 x10e3/uL (140-360); RED BLOOD COUNT 3.11 x10e6/uL (4.3-5.7); RED CELL DISTRIBUTION WIDTH 17.2 % (11.7-14.4)
[2018-11-03 06:15] LABS: INR 1.22; PROTHROMBIN TIME 16.5 seconds (11.9-14.5)
[2018-11-03 06:16] LABS: PARTIAL THROMBOPLASTIN TIME 39.1 seconds (23.8-35.5)
[2018-11-03 06:19] LABS: ANION GAP 17.1 mmol/L (8-16); CREATININE, SERUM 5.41 mg/dL (0.72-1.25); POTASSIUM 5.1 mmol/L (3.5-5.1)
--- NOTE | 2018-11-03 07:03 | NUR ---
DOWN TO OR LEFT IN STABLE CONDITION
--- NOTE | 2018-11-03 07:05 | NUR ---
PT TAKEN TO SURGERY AT THIS TIME VIA HOSPITAL BED.PT AAO X 3.RESPIRATIONS EVEN/NON LABORED. PRESENT AT THE TIME OF TRANSFER.REPORT GIVEN TO ONCOMING NURSE.
[2018-11-03] MEDS: INSULIN LISPRO 100 UNIT/1 ML 3ML VIAL SQ SCH ×4 (07:30→21:18)
[2018-11-03] MEDS ORDERED: HEPARIN SOD/SOD CHLORIDE 1,000 ML ONE (07:34)
[2018-11-03] MEDS ORDERED: BACITRACIN 50,000 UNIT VIAL ONE (07:35)
[2018-11-03] MEDS: SEVELAMER CARBONATE 800 MG TAB PO SCH ×3 (08:00→17:40)
--- NOTE | 2018-11-03 08:10 | NUR ---
PT TO GO TO ICU RM 194 AFTER SURGERY
[2018-11-03] MEDS: LORATADINE 10 MG TAB PO SCH (09:00)
[2018-11-03] MEDS: LACTOBACILLUS ACIDOPHILUS CAPSULE PO SCH ×3 (09:00→21:17)
[2018-11-03] MEDS: CALCITRIOL 0.25 MCG CAP PO SCH (09:00)
[2018-11-03] MEDS: NIFEDIPINE CR 30 MG TAB PO SCH ×2 (09:00→17:39)
[2018-11-03] MEDS: ASCORBIC ACID 500 MG TAB PO SCH (09:00)
[2018-11-03] MEDS: FLAXSEED 1000 MG PO SCH (09:00)
[2018-11-03] MEDS: COQ PO SCH (09:00)
[2018-11-03] MEDS: ERGOCALCIFEROL 50,000 UNIT CAP PO SCH (09:00)
[2018-11-03] MEDS: PRIMIDONE 50 MG TAB PO SCH ×2 (09:00→17:39)
[2018-11-03] MEDS: METOPROLOL TARTRATE 50 MG TAB PO SCH ×2 (09:00→17:39)
[2018-11-03] MEDS: PANTOPRAZOLE SOD 40 MG TABEC PO SCH (09:00)
--- NOTE | 2018-11-03 11:13 | NUR ---
CASE MANAGEMENT INITIAL ASSESSMENT Digital Program Manager to bedside to discuss plan of care with patient/family. CM/SW role and care transitions discussed. Anticipated discharge plan discussed along with duration of care. CM/SW discussed patients right to make decisions in care. CM/SW work hours given. Patient lives: Admit/Transfer: ER POA/Emergency contact: DEANDRA ROOT [phone] Current/Previous Home Health: NONE PCP/Follow-up Care: TO BE DETERMINED POST SURGERY Current/Previous DME: N/A Other Services: NONE Employment Status: RETIRED Areas of Concerns: DISCHARGE PLANS UNCERTAIN HOME VS SNF Referral Needs: UNDETERMINED Education Needs: N/A IMM/GRIMES given and signed (if applicable): ON ADMIT Goal for discharge:HOME WITH CM/SW left business card at the bedside with contact information. Name and number was also written on the patients whiteboard. Patient verbalized understanding of discussion. CM will follow-up with ongoing discharge and transition of care needs.
--- NOTE | 2018-11-03 11:32 | Diagnostic Imaging Report ---
Exam: Portable views of the left hip dated 11/03/2018 at 11:16 AM History: Postoperative Comparison: 11/01/2018 Findings: There is a left femoral neck screw and proximal intramedullary oriana in the proximal shaft of the femur. Position appears good. Several skin malu and soft tissue air compatible with recent surgery is noted. Diffuse vascular calcification is also present. Impression: Status post operative fixation of an intertrochanteric femoral fracture. Signed by: Dr. Denzel Benjamin DO on 11/03/2018 11:29 AM
[2018-11-03] MEDS ORDERED: CEFAZOLIN SOD 1 GM/D5W 50ML 50 ML IV SCH (14:00)
[2018-11-03] MEDS ORDERED: LIDOCAINE HCL 2% LOCAL INJ 5 ML SDV VIAL INJ ONE (14:38)
[2018-11-03] MEDS ORDERED: EPHEDRINE SULFATE INJ 50 MG/10 ML SYR ONE (14:38)
[2018-11-03] MEDS ORDERED: CEFAZOLIN SOD 1 GM VIAL ONE (14:38)
[2018-11-03] MEDS ORDERED: SEVOFLURANE INHAL SOLN 250 ML PEN BTL ONE (14:38)
[2018-11-03] MEDS ORDERED: PROPOFOL IV EMULSION 10 MG/ML 20 ML VIAL ONE (14:38)
--- NOTE | 2018-11-03 15:10 | NUR ---
Checked patient twice today in ICU after his left hip surgery. This afternoon, pt's resting heart rate between 124-130 bpm. Will defer PT eval until resting HR <120 bpm.
[2018-11-03] MEDS ORDERED: FENTANYL CITRATE/PF 100MCG/2 ML INJ ONE (15:22)
[2018-11-03] MEDS ORDERED: KETAMINE HCL INJ 50 MG/ML 10 ML VIAL ONE (15:22)
[2018-11-03] MEDS: HYDROCODONE/APAP 7.5MG-325MG 1 EA TAB PO PRN (15:51)
[2018-11-03] MEDS: HYDROXYZINE HCL 25 MG TAB PO PRN (15:51)
[2018-11-03] MEDS ORDERED: METHYLPREDNISOLONE SOD SUCC 40 MG/ML VIAL IV ONE (16:15)
[2018-11-03] MEDS ORDERED: INSULIN DETEMIR 100 UNIT/ML PEN SQ SCH (17:00)
[2018-11-03] MEDS ORDERED: ASPIRIN 81 MG ENTERIC COATED PO STA (18:02)
[2018-11-03 18:11] LABS: HEMATOCRIT 32.6 % (38.2-49.6); HEMOGLOBIN 10.5 g/dL (14.0-18.0)
[2018-11-03] MEDS ORDERED: CLOPIDOGREL BISULFATE 75 MG TAB PO ONE (18:15)
[2018-11-03] MEDS ORDERED: CLOPIDOGREL BISULFATE 75 MG TAB ONE (18:16)
[2018-11-03] MEDS ORDERED: ASPIRIN 81 MG ENTERIC COATED PO ONE (18:17)
[2018-11-03] MEDS ORDERED: METOPROLOL TARTRATE INJ 1 MG/ML VIAL ONE (18:17)
[2018-11-03] MEDS: METOPROLOL TARTRATE INJ 1 MG/ML VIAL IV PRN (18:30)
--- NOTE | 2018-11-03 18:36 | NUR ---
Orthopedic Brief Operative Note PreOp Diagnosis: Left Intertrochanteric Hip Fracture PostOp Diagnosis: Left Intertrochaneric Hip Fracture Procedure: Left Hip Intramedullary Nailing Surgeon: Dr. Manjula Hampton School Cook: None Anesthesia: General Estimated Blood Loss: 50 cc Drains: None Specimens: None Findings: Left Non-displaced Intertrochanteric Hip Fracture Complications: None Transferred to ICU Condition on transfer: Stable Manjula Hampton DO
[2018-11-03 18:38] LABS: CREATINE KINASE MB 2.9 ng/mL (0-5.0)
--- NOTE | 2018-11-03 18:38 | NUR ---
Orthopedic Post Operative Check Patient seen & examined resting comfortably at bedside. Pain much improved. AVSS NAD, Comfortable in bed Left Hip - Dressing, clean, dry and intact Motor: EHL, FHL, TA, G/S Sensation grossly intact Pulses: Palpable DP Compartments soft Negative calf tenderness H/H 10.5/32.6 78 year old male with left intertrochanteric hip fracture Continue analgesics PRN Follow up labs in AM PT - WBAT May resume anticoagulants as per medicine Manjula Hampton DO
--- NOTE | 2018-11-03 18:54 | NUR ---
PREOPERATIVE DIAGNOSES: 1. Left Non-displaced Intertrochanteric Hip Fracture POSTOPERATIVE DIAGNOSES: 1. Left Non-displaced Intertrochanteric Hip Fracture OPERATION PERFORMED: 1. Left Hip Intramedullary Nailing SURGEON: Manjula Hampton DO ANESTHESIA: General. EBL: 50cc DESCRIPTION OF OPERATION: The patient was taken to the operating room and placed under general anesthesia. The right lower extremity and left upper extremity had all bony prominences well padded and secured. SCD was placed on the right lower leg. Preoperative Ancef antibiotics were given. The patients left lower extremities were sterilely prepped and draped in the usual fashion. A time-out was performed to identify the correct extremity. The left hip was visualized under flourscopy to be reduced in adequate alignment. Next and incision was made proximal to the greater trochanter. A guide wire was introduced under flouroscopic guidance and deemed to be in adequate position. An opening reamer was inserted through the greater trochanter and aimed distally. A Dorys Gamma Nail 125 degree Short Nail was introduced into the canal and placed in adequate position. Next under flouroscopic guidance a lateral incision was made and a guide pin for the lag screw was placed in adequate position and measured to be 105 mm in length. A reamer was introduced and a 105 mm lag screw was placed in adequate position. Next the set screw was introduced proximally and placed in adequate position. Next a lateral incision was made for the distal screw. A drill was introduced and measured and was a distal locking screw was placed and confirmed to be in adequate length and position under flouroscopic visualization. The incisions were thoroughly irrigated, and the fascia was closed with 0 vicryl, and the subcutaneous tissue was closed with 2-0 vicryl. [place] were placed to close the skin and the skin was cleaned. An dressing including Aquace ls and a pressure dressing with Abd and Foam Tape was placed. The patient was transferred to ICU due to his perioperative risk under stable condition.
[2018-11-03] MEDS: INSULIN DETEMIR 100 UNIT/ML PEN SQ SCH (19:06)
--- NOTE | 2018-11-03 20:09 | Progress Note ---
DATE: November 03, 2018 CARDIOLOGY PROGRESS NOTE SUBJECTIVE: Status post left hip open reduction and internal fixation in ICU, being monitored. Asymptomatic at this point. Denies chest pain or shortness of breath. In AFib with RVR in the 120s to 150s. Beta kina and calcium channel kina have been resumed. OBJECTIVE VITAL SIGNS: Temperature 97.4, heart rate 124, blood pressure 132/64, respiratory rate 20, and O2 sat 95% on room air. GENERAL: In no acute distress. Alert. NECK: No JVD. CHEST: Clear to auscultation. CARDIOVASCULAR: Irregularly irregular rate and rhythm. Normal S1 and S2. Systolic ejection murmur crescendo 2/6. No S3, no S4. ABDOMEN: Soft. EXTREMITIES: Trace edema. Right lower extremity is chronically pulled in the setting of know PAD. Left lower extremity status post revascularization is warm with healing digit ischemic changes. CARDIOVASCULAR MEDICATIONS: Reviewed; 1. Resuming aspirin 81 mg daily. 2. Clopidogrel 75 mg daily at night. 3. Adding metoprolol 5 mg IV q.6 hours as needed for heart rate over 120. 4. Metoprolol tartrate 50 mg b.i.d. 5. Nifedipine 30 mg b.i.d. 6. Nitroglycerin p.r.n. 7. Atorvastatin 20 mg at bedtime. STUDIES: Reviewed. Potassium 5.1, sodium 133, creatinine 5.4. Hemoglobin 11, white blood cell 5.2, platelets 237. INR 1.2. Normal transaminases. ASSESSMENTS 1. Atrial fibrillation with rapid ventricular response. 2. Moderate aortic valve stenosis. 3. Chronic severe systolic heart failure with left ventricular ejection fraction less than 20%, mixed systolic and diastolic. 4. Peripheral vascular disease, status post left iliac and left superficial femoral artery intervention. 5. End-stage renal disease, on scheduled dialysis. 6. Hypertension. 7. Dyslipidemia. 8. Diabetes mellitus. RECOMMENDATIONS 1. Resume dual-antiplatelet therapy tonight. 2. As okay with orthopedic surgery, resume Eliquis starting tomorrow. 3. Continue beta kina as previously described. 4. If patient with RVR persists, can switch nifedipine out or discontinued and beta kina further. 5. Continues statin. 6. Trend enzymes and keep in ICU overnight. Job#: [id number] JANUARY
[2018-11-03] MEDS: ATORVASTATIN 20 MG TAB PO SCH (21:17)
[2018-11-03] MEDS: CLINDAMYCIN 300MG 50 ML IV SCH (22:17)
[2018-11-04] VITALS (15 sets, daily range): BP systolic 95–146; BP diastolic 45–99
[2018-11-04 05:22] LABS: HEMATOCRIT 32.6 % (38.2-49.6); HEMOGLOBIN 10.2 g/dL (14.0-18.0)
[2018-11-04 05:50] LABS: CREATINE KINASE MB 2.5 ng/mL (0-5.0)
[2018-11-04] MEDS: METOPROLOL TARTRATE 50 MG TAB PO SCH ×2 (07:26→17:23)
[2018-11-04] MEDS: NIFEDIPINE CR 30 MG TAB PO SCH ×2 (07:26→17:00)
[2018-11-04] MEDS: HYDROCODONE/APAP 7.5MG-325MG 1 EA TAB PO PRN (08:05)
[2018-11-04] MEDS: INSULIN LISPRO 100 UNIT/1 ML 3ML VIAL SQ SCH ×4 (08:25→21:00)
[2018-11-04] MEDS: INSULIN DETEMIR 100 UNIT/ML PEN SQ SCH ×2 (08:26→19:00)
[2018-11-04] MEDS: CLINDAMYCIN 300MG 50 ML IV SCH ×2 (08:52→13:00)
--- NOTE | 2018-11-04 08:54 | NUR ---
Patient HR noted improved after PRN pain medication. Left PIV obtained. Left radial a-line d/c. Per allie Erickson to transfer to Med Surg with telemetry.
[2018-11-04] MEDS: ERGOCALCIFEROL 50,000 UNIT CAP PO SCH (09:00)
[2018-11-04] MEDS: FLAXSEED 1000 MG PO SCH (09:00)
[2018-11-04] MEDS: COQ PO SCH (09:00)
[2018-11-04] MEDS: LORATADINE 10 MG TAB PO SCH (09:10)
[2018-11-04] MEDS: ASPIRIN 81 MG ENTERIC COATED PO SCH (09:10)
[2018-11-04] MEDS: SEVELAMER CARBONATE 800 MG TAB PO SCH ×3 (09:10→17:23)
[2018-11-04] MEDS: CALCITRIOL 0.25 MCG CAP PO SCH (09:11)
[2018-11-04] MEDS: PRIMIDONE 50 MG TAB PO SCH ×2 (09:11→17:23)
[2018-11-04] MEDS: PANTOPRAZOLE SOD 40 MG TABEC PO SCH (09:11)
[2018-11-04] MEDS: ASCORBIC ACID 500 MG TAB PO SCH (09:11)
[2018-11-04] MEDS: CLOPIDOGREL BISULFATE 75 MG TAB PO SCH (09:11)
[2018-11-04] MEDS: LACTOBACILLUS ACIDOPHILUS CAPSULE PO SCH ×3 (09:11→21:16)
[2018-11-04] MEDS: TRAMADOL HCL 50 MG TAB PO PRN (09:21)
[2018-11-04 09:38] LABS: BASOPHILS # (AUTO) 0.1 (0.0-0.1); BASOPHILS % 0.7 % (0.0-1.0); EOSINOPHILS # (AUTO) 0.1 (0.0-0.4); EOSINOPHILS % 1.4 % (0.0-6.0); HEMATOCRIT 32.3 % (38.2-49.6); HEMOGLOBIN 10.2 g/dL (14.0-18.0); LYMPHOCYTES # (AUTO) 1.2 (1.0-3.2); LYMPHOCYTES % 12.3 % (18.0-39.1); MEAN CORPUSCULAR HEMOGLOBIN 35.9 pg (28-32); MEAN CORPUSCULAR HGB CONC 31.6 g/dL (31-35); MEAN CORPUSCULAR VOLUME 113.7 fL (81-99); MONOCYTES # (AUTO) 1.2 (0.2-0.8); MONOCYTES % 13.2 % (4.4-11.3); NEUTROPHILS # (AUTO) 6.8 (2.1-6.9); NEUTROPHILS % 72.2 % (38.7-80.0); PLATELET COUNT 226 x10e3/uL (140-360); RED BLOOD COUNT 2.84 x10e6/uL (4.3-5.7); RED CELL DISTRIBUTION WIDTH 17.1 % (11.7-14.4)
[2018-11-04 09:49] LABS: ALBUMIN/GLOBULIN RATIO 0.8 (0.8-2.0); CALCIUM 8.7 mg/dL (8.4-10.2); CREATININE, SERUM 7.14 mg/dL (0.72-1.25)
--- NOTE | 2018-11-04 09:50 | NUR ---
Report given to TANYA Scott. Dr Eagle to bedside. HD orders left on chart. Patient transported to Room 113 via bed. , RN, and PCT to bedside. Patient on 2L NC.
--- NOTE | 2018-11-04 10:30 | NUR ---
PT TO RM 113, NO DISTRESS NOTED, UPDATED ON POC VOICED UNDERSTANDING, DENIES PAIN AT THIS TIME, CALL LIGHT IN REACH WILL CONTINUE OT MONITOR
[2018-11-04] MEDS ORDERED: SODIUM CHLORIDE 0.9% 250ML 250 ML ONE (12:36)
[2018-11-04 14:29] LABS: CREATINE KINASE MB 2.4 ng/mL (0-5.0)
--- NOTE | 2018-11-04 14:40 | NUR ---
Orthopedic Progress Note Patient seen & examined resting comfortably at bedside. Pain tolerable with analgesics, much improved compared to pain prior to surgery. Denies any numbness, paresthesias or loss of distal motor function. VS T 96.8, HR 69, RR 16, BP 100/57, O2 Sat 94% Left Leg - Dressing clean, dry and intac Motor + EHL, FHL, TA, G/S Sensation grossly intact to light touch Pulse + DP, Post tib Compartments soft Negative calf tenderness Hgb 10.2, Hct 32.3 78 year old male s/p Left hip IMN POD #1 Analgesic PRN DVT Prophylaxis PT - WBAT Encourage that the patient remains either seated or out of bed as much as possible to build endurance and strength Follow up am labs DO [facility]
--- NOTE | 2018-11-04 16:57 | Progress Note ---
DATE: November 04, 2018 CARDIOLOGY PROGRESS NOTE SUBJECTIVE: No new complaints. Doing well postoperatively. Denies chest pain or shortness of breath. OBJECTIVE VITAL SIGNS: Temperature 96.8, heart rate 69, blood pressure 100/57, respiratory rate 16, O2 sat 94% on nasal cannula. GENERAL: In no acute distress. NECK: No JVD. CHEST: Clear to auscultation. CARDIOVASCULAR: Irregularly irregular rate and rhythm. Normal S1 and S2. ABDOMEN: Soft, nontender. EXTREMITIES: Trace edema. Left foot warm. Right foot cold in the setting of known occlusions, chronic. Adequate capillary refill. CARDIOVASCULAR MEDICATIONS: Reviewed; 1. Heparin p.r.n. 2. Nifedipine 30 mg b.i.d. 3. Aspirin 81 mg daily. 4. Nitroglycerin p.r.n. 5. Clopidogrel 75 mg daily. 6. Metoprolol tartrate 50 mg b.i.d. STUDIES: Reviewed. Sodium 136, potassium 6, chloride 102, bicarbonate 13, BUN 66, creatinine 7.1, glucose 112. White blood cells 9.4, hemoglobin 10.2, platelet 226. INR 1.22. AST 29, ALT 25. ASSESSMENT 1. Left hip fracture, status post open reduction and internal fixation. 2. Peripheral arterial disease, status post left iliac and femoral revascularization, pending staged revascularization to the right lower extremity at a later date. 3. Atrial fibrillation, on chronic Eliquis therapy. 4. Severe chronic systolic heart failure. 5. Diabetes mellitus. 6. Hypertension. 7. Dyslipidemia. 8. End-stage renal disease. RECOMMENDATIONS 1. Resume Eliquis. 2. Volume management per nephrology. 3. Potassium management per nephrology. 4. Continue rest of cardiovascular medications. Job#: [id number] LPA
--- NOTE | 2018-11-04 17:00 | NUR ---
PT UPSET DUE TO PT NOT HAVING DIALYSIS YET, SPOKE WITH [facility] RN WITH [facility] STATES THERE WAS MISCOMMUNICATION RE: PTS ADMISSION STATUS. WILL DO DIALYSIS TONIGHT BETWEEN 7-[address] BENNETT AND FAMILY INFORMED.
[2018-11-04] MEDS: APIXABAN 5 MG TABLET PO SCH (17:22)
[2018-11-04] MEDS: ATORVASTATIN 20 MG TAB PO SCH (21:16)
[2018-11-05] VITALS (8 sets, daily range): BP systolic 109–174; BP diastolic 62–78
[2018-11-05] MEDS: EPOETIN ALFA 10000 UNIT/ML VIAL SC SCH (00:29)
[2018-11-05 06:57] LABS: HEMATOCRIT 31.4 % (38.2-49.6); HEMOGLOBIN 10.3 g/dL (14.0-18.0)
[2018-11-05] MEDS: INSULIN LISPRO 100 UNIT/1 ML 3ML VIAL SQ SCH ×4 (07:30→21:46)
[2018-11-05] MEDS: LORATADINE 10 MG TAB PO SCH (09:00)
[2018-11-05] MEDS: COQ PO SCH (09:00)
[2018-11-05] MEDS: NIFEDIPINE CR 30 MG TAB PO SCH ×2 (09:00→17:00)
[2018-11-05] MEDS: FLAXSEED 1000 MG PO SCH (09:00)
[2018-11-05] MEDS: ASPIRIN 81 MG ENTERIC COATED PO SCH (09:05)
[2018-11-05] MEDS: PRIMIDONE 50 MG TAB PO SCH ×2 (09:05→18:25)
[2018-11-05] MEDS: CLOPIDOGREL BISULFATE 75 MG TAB PO SCH (09:05)
[2018-11-05] MEDS: ASCORBIC ACID 500 MG TAB PO SCH (09:05)
[2018-11-05] MEDS: PANTOPRAZOLE SOD 40 MG TABEC PO SCH (09:05)
[2018-11-05] MEDS: METOPROLOL TARTRATE 50 MG TAB PO SCH ×2 (09:05→18:25)
[2018-11-05] MEDS: CALCITRIOL 0.25 MCG CAP PO SCH (09:05)
[2018-11-05] MEDS: HYDROCODONE/APAP 5MG-325MG TAB PO PRN ×2 (09:05→23:26)
[2018-11-05] MEDS: INSULIN DETEMIR 100 UNIT/ML PEN SQ SCH ×3 (09:05→21:46)
[2018-11-05] MEDS: APIXABAN 5 MG TABLET PO SCH ×2 (09:05→18:25)
[2018-11-05] MEDS: SEVELAMER CARBONATE 800 MG TAB PO SCH ×3 (09:05→18:26)
[2018-11-05] MEDS: ERGOCALCIFEROL 50,000 UNIT CAP PO SCH (09:05)
[2018-11-05] MEDS: LACTOBACILLUS ACIDOPHILUS CAPSULE PO SCH ×3 (09:05→20:44)
--- NOTE | 2018-11-05 09:05 | NUR ---
ASSESSMENT COMPLETE NO DISTRESS NOTED, UPDATED ON POC VOICED UNDERSTANDING, DSG TO L HIP C/D/I, LEFT UNSTAGABLE ULCERS NOTED TO GREAT TOE,3RD, 4TH, 5TH DIGIT, CO PAIN TO LEFT HIP 05/23 MEDICATED WITH PRN MEDS, L AC 20G NO SS OF INFILTRATION NOTED, NO OTHER CO VOICED CALL LIGHT IN REACH WILL CONTINUE TO MONITOR
--- NOTE | 2018-11-05 10:39 | NUR ---
Met with pt and his regarding order for [place]. They agree and stated they requested there because he has been there before. signed the choice letter. Original placed on chart, and copy given to .
--- NOTE | 2018-11-05 12:12 | NUR ---
Orthopedic Progress Note Patient seen and examined, resting comfortably at bedside. Feeling better. Expecting to go to rehab tomorrow morning at [facility]. VS T 98.7, HR 110, RR 20, BP 174/75, Pulse 91% Left Hip - Dressing clean, dry and intact Aquacel in place - sanginous drainage note Motor : EHL, FHL, TA, G/S Sensation grossly intact Pulses + DP Compartments soft Negative calf tenderness Hgb 10.3 Hct 31.4 78 year old male with left intertrochanteric hip fracture s/p Left hip IMN POD #2 Analgesia PRN DVT Prophylaxis PT WBAT Follow up am labs Patiently orthopedically stable Recommend follow up in 2 weeks after discharge in my office Plan for dressing change prior to discharge with new aquacel dressing DO [facility]
--- NOTE | 2018-11-05 17:27 | Progress Note ---
DATE: November 05, 2018 CARDIOLOGY PROGRESS NOTE SUBJECTIVE: No new complaints. OBJECTIVE VITAL SIGNS: Temperature 96.9, heart rate 110, respiratory rate 18, blood pressure 110/62, O2 sat 95% on room air. GENERAL: In no acute distress. Alert. NECK: No JVD. CHEST: Clear to auscultation. CARDIOVASCULAR: Irregular rate and rhythm. Normal S1 and S2. No S3 or S4. Systolic ejection murmur. ABDOMEN: Soft, nontender. EXTREMITIES: No edema. CARDIOVASCULAR MEDICATIONS: Reviewed; 1. Eliquis 5 mg every 12 hours. 2. Clopidogrel 75 mg daily. 3. Aspirin 81 mg daily. 4. Metoprolol tartrate 50 mg b.i.d. 5. Atorvastatin 20 mg at bedtime. 6. Metoprolol tartrate 5 mg IV q.6 hours p.r.n. 7. Nifedipine extended release 30 mg b.i.d. LABORATORY STUDIES: White blood cells 9.4, hemoglobin 10.3, platelets 226. Glucose 204. TELEMETRY: Sinus rhythm with occasional PACs. ASSESSMENT 1. Paroxysmal atrial fibrillation. 2. Diabetes mellitus type 2. 3. Hypertension. 4. Dyslipidemia. 5. End-stage renal disease. 6. Severe chronic systolic heart failure. 7. Status post left hip fracture, status post open reduction and internal fixation. 8. Peripheral arterial disease, status post left iliac and femoral revascularization. RECOMMENDATIONS 1. Continue current cardiovascular medications. 2. Rehab. 3. Further cardiac and peripheral vascular optimization to be arranged as outpatient. Job#: [id number] DIVINE
[2018-11-05] MEDS: ATORVASTATIN 20 MG TAB PO SCH (20:44)
[2018-11-06] VITALS (7 sets, daily range): BP systolic 97–150; BP diastolic 49–79
[2018-11-06] MEDS: HYDROXYZINE HCL 25 MG TAB PO PRN (03:42)
[2018-11-06] MEDS: INSULIN LISPRO 100 UNIT/1 ML 3ML VIAL SQ SCH ×4 (07:30→21:00)
--- NOTE | 2018-11-06 08:01 | NUR ---
PATIENT IS AWAKE AND IN STABLE CONDITION WITH NO S/S OF RESPIRATORY DISTRESS. NO PAIN VOICED. PATCHES APPLIED TO LEFT HIP AREA. RIGHT ARM IS AMPUTATED- STUMP PRESENT. CALL LIGHT IS WITHIN REACH, INSTRUCTED TO CALL FOR ASSISTANCE NEEDED.
[2018-11-06] MEDS: LORATADINE 10 MG TAB PO SCH (09:00)
[2018-11-06] MEDS: ERGOCALCIFEROL 50,000 UNIT CAP PO SCH (09:00)
[2018-11-06] MEDS: ASPIRIN 81 MG ENTERIC COATED PO SCH (09:00)
[2018-11-06] MEDS: INSULIN DETEMIR 100 UNIT/ML PEN SQ SCH ×3 (09:00→21:30)
[2018-11-06] MEDS: COQ PO SCH (09:00)
[2018-11-06] MEDS: FLAXSEED 1000 MG PO SCH (09:00)
[2018-11-06] MEDS: APIXABAN 5 MG TABLET PO SCH ×2 (09:00→17:29)
[2018-11-06] MEDS: SEVELAMER CARBONATE 800 MG TAB PO SCH ×3 (09:00→19:14)
[2018-11-06] MEDS: METOPROLOL TARTRATE 50 MG TAB PO SCH ×2 (09:01→17:00)
[2018-11-06] MEDS: CALCITRIOL 0.25 MCG CAP PO SCH (09:01)
[2018-11-06] MEDS: NIFEDIPINE CR 30 MG TAB PO SCH ×2 (09:01→17:00)
[2018-11-06] MEDS: ASCORBIC ACID 500 MG TAB PO SCH (09:01)
[2018-11-06] MEDS: CLOPIDOGREL BISULFATE 75 MG TAB PO SCH (09:01)
[2018-11-06] MEDS: PRIMIDONE 50 MG TAB PO SCH ×2 (09:01→17:29)
[2018-11-06] MEDS: PANTOPRAZOLE SOD 40 MG TABEC PO SCH (09:01)
[2018-11-06] MEDS: LACTOBACILLUS ACIDOPHILUS CAPSULE PO SCH ×3 (09:01→20:55)
--- NOTE | 2018-11-06 10:07 | NUR ---
Progress Note - Orthopedics Patient seen and examined sitting upright at bedside. Patient and his states he looks and feels much better and is participating with therapy. Denies numbness, paresthesias or loss of distal motor function. VS Temp 98.1, HR 116, RR 20, BP 147/79, O2 100% NAD Left Hip - dressing clean dry and intact Incision malu in place, no erythema, no drainage Motor: EHL, FHL, TA, G/S Sensation grossly intact to light touch Pulses + DP palpable Compartments soft 78 year old M s/p Left Hip IMN POD #3 Analgesias PRN DVT Prophylaxis PT WBAT Orthopedically stable for discharge Follow up in office in 2 weeks DO [facility]
--- NOTE | 2018-11-06 10:15 | NUR ---
Ginny from [facility] has received referral and is working on it.
[2018-11-06] MEDS: HYDROCODONE/APAP 5MG-325MG TAB PO PRN (11:03)
--- NOTE | 2018-11-06 12:21 | NUR ---
MOT COMPLETED AND IN PACKET AT DESK PT AND AWARE OF TENTATIVE TRANSFER TO [facility] THIS EVENING PER AMRIT AT [facility] PT IS ACCEPTED AND SHE WILL CALL MS 1 NURSE JACEK WITH MOT AND ROOM NUMBER
--- NOTE | 2018-11-06 12:28 | Progress Note ---
DATE: November 06, 2018 CARDIOLOGY PROGRESS NOTE SUBJECTIVE: No new complaints. OBJECTIVE VITAL SIGNS: Temperature 98.1, heart rate 116, blood pressure 147/79, respiratory rate 20, O2 sat 100%. GENERAL: No acute distress. Alert. NECK: No JVD. CHEST: Clear to auscultation. CARDIOVASCULAR: Regular rate and rhythm. Normal S1 and S2. ABDOMEN: Soft, nontender. EXTREMITIES: No edema. Warm distal extremities. CARDIOVASCULAR MEDICATIONS: Have been reviewed. 1. Nifedipine 30 mg daily. 2. Aspirin 81 mg daily. 3. Nitroglycerin p.r.n. 4. Clopidogrel 75 mg daily. 5. Metoprolol tartrate 5 mg every 6 hours as needed. 6. Eliquis 5 mg every 12 hours. 7. Metoprolol tartrate 50 mg b.i.d. 8. Atorvastatin 20 mg at bedtime. STUDIES: Reviewed. Potassium 6, chloride 102, bicarbonate 13, sodium 136, creatinine 9.1, BUN 66, glucose 112. White blood cells 9.4, hemoglobin 10.3, platelets 226. INR 1.22. AST 29, ALT 25. ASSESSMENT 1. Left hip fracture, status post open reduction and internal fixation. 2. Severe chronic systolic heart failure. 3. Vasculopathy, status post left iliac and left femoral-popliteal revascularization with no severe disease of right femoral-popliteal segment. 4. Atrial fibrillation, paroxysmal. 5. End-stage renal disease. 6. Hypertension. RECOMMENDATIONS: Continue current cardiovascular medications. Patient is euvolemic on exam today and adhering well to the current regimen. Rehab is being correlated. Please feel free to call with any questions or concerns. Job#: [id number]
--- NOTE | 2018-11-06 12:32 | Consultation ---
DATE OF CONSULTATION: November 06, 2018 REFERRING PHYSICIAN: Dr. Orion Preciado I would like to thank Dr. Preciado for asking me to see Mr. Odonnell. REASON FOR CONSULTATION: 1. Left hip fracture secondary to fall, status post IM nailing, now weightbearing as tolerated. 2. Right upper extremity amputation. 3. End-stage renal disease on hemodialysis. 4. Hypertension. HISTORY: Mr. Odonnell is a 78-year-old male known to me from his previous stay over at [facility]. He has hypertension, diabetes, end-stage renal disease, history of ischemic colitis and Parkinson disease, and severe CHF, peripheral vascular disease and atrial fibrillation as well as right upper extremity amputation. He came into the hospital after fracturing his left hip from a fall. He underwent intramedullary nailing. He is weightbearing as tolerated, but because of his multiple medical issues his right upper extremity limb loss and his multiple medical issues, he is being evaluated for inpatient rehab. PAST MEDICAL HISTORY: As above. PAST SURGICAL HISTORY: Stent placement to the left lower extremity to help with circulation. ALLERGIES: NO KNOWN DRUG ALLERGIES. SOCIAL HISTORY: He lives with his spouse in a one-story home. He is ambulatory using a walker or assist device, somewhat of a household ambulator. FAMILY HISTORY: Noncontributory. REVIEW OF SYSTEMS: An 11-point review of systems essentially negative except for the above findings. FAMILY HISTORY: Noncontributory. LABORATORY DATA: White cell count of 9.4, hemoglobin 10.3, hematocrit 31.4, platelets 226,000. Hip x-ray from two days ago shows status post operative fixation with intertrochanteric femoral fracture. PHYSICAL EXAMINATION GENERAL: The patient is awake, alert, very pleasant, in no apparent distress at this time. He follows commands without any difficulty. EYES: Gaze is conjugate. ORAL: Tongue is midline. NECK: Supple. HEART: Regular. LUNGS: Fair air entry. He is on O2 via nasal cannula. ABDOMEN: Nontender, nondistended. EXTREMITIES: He has soreness to the left hip as to be expected. The patient also has some blackish toes distally, left foot. He has diminished effusion. He is being followed by wound care for that. Sensory pitts no new onset of numbness or tingling of hands, feet or face. Manual muscle testing of left upper extremity demonstrates 4- to 4/5 strength throughout. In the right upper extremity, he has amputation of the right upper extremity. The right lower extremity demonstrates 4/5 strength throughout. In the left lower extremity, hip and knee flexion and extension 2/5 strength with ____ range of motion, and ankle dorsal flexion and plantar flexion was 2+/5 strength, and again there are changes which look like either gangrenous changes or necrotic skin to the distal toes of the first and fourth digits of the left foot. IMPRESSION 1. Left intertrochanteric fracture secondary to fall with IM nailing and weightbearing as tolerated. 2. Right upper extremity amputation. 3. End-stage renal disease on hemodialysis 3 days a week. 4. Diabetes. 5. Hypertension. 6. History of ischemic colitis. 7. Severe systolic heart failure. 8. History of Parkinson disease. 9. Peripheral arterial disease. 10. Atrial fibrillation on Eliquis. PLAN: Could benefit from multidisciplinary rehab program, consider PT, OT and nursing working in a coordinated fashion to optimize functional level. Continue to work on mobility, transfers, gait and ADLs. Will transfer to rehab when cleared. PRECAUTIONS: Falls. Job#: [id number]
[2018-11-06] MEDS ORDERED: SODIUM CHLORIDE 0.9% 1000ML 1,000 ML ONE (14:52)
[2018-11-06] MEDS: METOPROLOL TARTRATE INJ 1 MG/ML VIAL IV PRN (18:51)
--- NOTE | 2018-11-06 19:17 | NUR ---
PATIENT IS IN STABLE CONDITION WITH NO S/S OF RESPIRATORY DISTRESS. NO PAIN VOICED. TELEMETRY APPLIED. PATIENT COMPLETED DIALYSIS AND HAD 1350 LITERS REMOVED. PRESENT IN ROOM. CALL LIGHT IS WITHIN REACH, INSTRUCTED TO CALL FOR ASSISTANCE NEEDED. REPORT GIVEN TO ONCOMING NURSE.
[2018-11-06] MEDS: ATORVASTATIN 20 MG TAB PO SCH (20:55)
[2018-11-07] VITALS: BP 150/77
[2018-11-07] MEDS: METOPROLOL TARTRATE INJ 1 MG/ML VIAL IV PRN ×3 (00:22→14:48)
[2018-11-07] MEDS: HYDROCODONE/APAP 7.5MG-325MG 1 EA TAB PO PRN (02:45)
[2018-11-07] MEDS: HYDROXYZINE HCL 25 MG TAB PO PRN (03:11)
[2018-11-07 04:00] VITALS: BP 145/81
[2018-11-07] MEDS: INSULIN LISPRO 100 UNIT/1 ML 3ML VIAL SQ SCH ×2 (07:30→11:30)
--- NOTE | 2018-11-07 07:47 | NUR ---
PATIENT IS AWAKE AND IN STABLE CONDITION WITH NO S/S OF RESPIRATORY DISTRESS. PATIENT DENIES ANY PAIN. DRESSING TO LEFT HIP AND UPPER LEG IS INTACT AND DRY. DRESSING OVER DIALYSIS PORT IS INTACT. BED ALARM APPLIED. CALL LIGHT IS WITHIN REACH, INSTRUCTED TO CALL FOR ASSISTANCE NEEDED.
[2018-11-07 07:53] VITALS: BP 151/89
[2018-11-07] MEDS: FLAXSEED 1000 MG PO SCH (08:29)
[2018-11-07] MEDS: COQ PO SCH (08:29)
[2018-11-07] MEDS: ASCORBIC ACID 500 MG TAB PO SCH (08:36)
[2018-11-07] MEDS: CLOPIDOGREL BISULFATE 75 MG TAB PO SCH (08:36)
[2018-11-07] MEDS: CALCITRIOL 0.25 MCG CAP PO SCH (08:36)
[2018-11-07] MEDS: PANTOPRAZOLE SOD 40 MG TABEC PO SCH (08:36)
[2018-11-07] MEDS: LACTOBACILLUS ACIDOPHILUS CAPSULE PO SCH (08:36)
[2018-11-07] MEDS: NIFEDIPINE CR 30 MG TAB PO SCH (08:36)
[2018-11-07] MEDS: SEVELAMER CARBONATE 800 MG TAB PO SCH ×2 (08:37→12:16)
[2018-11-07] MEDS: LORATADINE 10 MG TAB PO SCH (08:37)
[2018-11-07] MEDS: INSULIN DETEMIR 100 UNIT/ML PEN SQ SCH (08:37)
[2018-11-07] MEDS: ASPIRIN 81 MG ENTERIC COATED PO SCH (08:37)
[2018-11-07] MEDS: METOPROLOL TARTRATE 50 MG TAB PO SCH (08:37)
[2018-11-07] MEDS: APIXABAN 5 MG TABLET PO SCH (08:37)
[2018-11-07] MEDS: ERGOCALCIFEROL 50,000 UNIT CAP PO SCH (08:37)
[2018-11-07] MEDS: EPOETIN ALFA 10000 UNIT/ML VIAL SC SCH (09:31)
[2018-11-07] MEDS: PRIMIDONE 50 MG TAB PO SCH (09:57)
[2018-11-07 11:58] VITALS: BP 117/73
--- NOTE | 2018-11-07 13:52 | NUR ---
TRANSFER REPORT GIVEN TO KEISHA (CHARGE NURSE) AT 1230. PATIENT IS GOING TO ROOM 3106.
--- NOTE | 2018-11-07 15:38 | NUR ---
PATIENT DISCHARGE/TRANSFERRED TO [facility] ROOM 3106. PATIENT OFF THE UNIT AT 1537 PER STRETCHER WITH 2 PERSON EMS SERVICE. PATIENT IS IN STABLE CONDITION WITH NO S/S OF RESPIRATORY DISTRESS. NO PAIN VOICED. 02 APPLIED. IV SALINE LOCKED TO LEFT AC 20G. DRESSINGS TO LEFT HIP AND UPPER LEG IS DRY AND INTACT. CHARGE NURSE, KEISHA, AT [facility] INFORMED OF AQUACEL DRESSINGS AND IV SALINE LOCKED. TRANSFER PACKET GIVEN TO EMS SERVICE. PATIENT'S PERSONAL ITEMS TAKEN BY HIS .
== END 2018-11-07 15:37 | DRG 480 ==
LOC: ER 07:50 → ERHOLD 13:03 → MED/SURG 19:42 → OBSVTOIN 11-02 09:09 → ICU 11-03 10:16 → MED/SURG 11-04 10:10
PROVIDERS: ADMIT Internal Medicine; ATTEND Internal Medicine
PROC: 0QS736Z Reposition Left Upper Femur with Intramedullary Internal Fixation Device, Percutaneous Approach (ICD-10-PCS; principal; 2018-11-02)
PROC: 5A1D70Z Performance of Urinary Filtration, Intermittent, Less than 6 Hours Per Day (ICD-10-PCS; 2018-11-02)
PROC: 5A1D70Z Performance of Urinary Filtration, Intermittent, Less than 6 Hours Per Day (ICD-10-PCS; 2018-11-04)
PROC: 5A1D70Z Performance of Urinary Filtration, Intermittent, Less than 6 Hours Per Day (ICD-10-PCS; 2018-11-06)
DX: S72.002A Fracture of unspecified part of neck of left femur, initial encounter for closed fracture (principal); N18.6 End stage renal disease; I13.2 Hypertensive heart and chronic kidney disease with heart failure and with stage 5 chronic kidney disease, or end stage renal disease; M31.9 Necrotizing vasculopathy, unspecified; I50.22 Chronic systolic (congestive) heart failure; Z99.2 Dependence on renal dialysis; I35.0 Nonrheumatic aortic (valve) stenosis; I73.9 Peripheral vascular disease, unspecified; I48.0 Paroxysmal atrial fibrillation; Z79.01 Long term (current) use of anticoagulants; D72.819 Decreased white blood cell count, unspecified; E11.22 Type 2 diabetes mellitus with diabetic chronic kidney disease; G20 Parkinson's disease; M19.90 Unspecified osteoarthritis, unspecified site; Z95.820 Peripheral vascular angioplasty status with implants and grafts; E87.5 Hyperkalemia; D63.1 Anemia in chronic kidney disease
CPT/HCPCS: 36415; 71045; 72131; 72170; 72192; 76001; 80048; 80053; 81001; 82550; 82553; 82948; 84484; 85014; 85018; 85025; 85610; 85730; 86704; 86706; 87340; 90962; 93005; 93306; 96372; 97139; 99285; C1713; G0378; J0690; J1644; J2001; J2920; J3410; J7030; J7050; J7799; Q4081

== ENCOUNTER → 2018-12-20 | Day surgery (SDC) | payer MEDICARE, OTHER ==
[2018-12-18 16:29] LABS: BASOPHILS # (AUTO) 0.1 (0.0-0.1); BASOPHILS % 0.5 % (0.0-1.0); EOSINOPHILS # (AUTO) 0.1 (0.0-0.4); EOSINOPHILS % 1.1 % (0.0-6.0); HEMATOCRIT 35.6 % (38.2-49.6); HEMOGLOBIN 11.2 g/dL (14.0-18.0); LYMPHOCYTES % 7.7 % (18.0-39.1); MEAN CORPUSCULAR HEMOGLOBIN 34.7 pg (28-32); MEAN CORPUSCULAR HGB CONC 31.5 g/dL (31-35); MEAN CORPUSCULAR VOLUME 110.2 fL (81-99); MONOCYTES # (AUTO) 0.9 (0.2-0.8); MONOCYTES % 7.1 % (4.4-11.3); NEUTROPHILS # (AUTO) 10.9 (2.1-6.9); NEUTROPHILS % 82.9 % (38.7-80.0); PLATELET COUNT 428 x10e3/uL (140-360); RED BLOOD COUNT 3.23 x10e6/uL (4.3-5.7); RED CELL DISTRIBUTION WIDTH 18.5 % (11.7-14.4)
[2018-12-18 16:40] LABS: INR 1.08
[2018-12-18 16:41] LABS: PARTIAL THROMBOPLASTIN TIME 36.5 seconds (23.8-35.5)
[2018-12-18 16:48] LABS: ALBUMIN 2.9 g/dL (3.5-5.0); ALBUMIN/GLOBULIN RATIO 0.7 (0.8-2.0); ANION GAP 19.8 mmol/L (8-16); CALCIUM 9.7 mg/dL (8.4-10.2); CHOL/HDL RATIO 1.4 (3.9-4.7); CREATININE, SERUM 5.92 mg/dL (0.72-1.25); POTASSIUM 4.8 mmol/L (3.5-5.1)
[2018-12-20] VITALS (24 sets, daily range): BP systolic 121–154; BP diastolic 76–93
[~2018-12-20] VITALS: Ht 185.4 cm; Wt 81.6 kg
[~2018-12-20] MED LIST changes: +ELIQUIS PO; +FENTANYL CITRATE/PF 100MCG/2 ML INJ ONE; +FEXOFENADINE H180 MG PO; +HEPARIN SOD/SOD CHLORIDE 2,000 ML ONE; +HYDROXYZINE HCL25 MG PO; +IOPAMIDOL 370 MG/ML 200 ML INFUS..BTL INJ ONE; +LIDOCAINE HCL 1% LOCAL INJ 20 ML VIAL ONE; +MIDAZOLAM HCL 2 MG/2 ML VIAL ONE; +SODIUM CHLORIDE 0.9% 1000ML 1,000 ML ONE; +ULTRAM50 MG PO
--- NOTE | 2018-12-20 08:30 | NUR ---
Received patient to PACU bay 20. at bedside. Patient gowned and prepped for procedure. BS 58. Dr. Renteria called. Received order for juice. Apple juice given, Will monitor.
--- NOTE | 2018-12-20 09:30 | NUR ---
IV access obtained by US by Astrid P> RN> BS repeated and now results 77. Will continue to monitor closely.
--- NOTE | 2018-12-20 14:50 | NUR ---
ACT drawn. Resulted 213. ACT to be 170 or less prior to sheath pull. Sheaths x 2 secured via right groin with Tegaderm dressings x 2. No bleeding or hematoma noted. Vital signs remain stable. remains at bedside.
--- NOTE | 2018-12-20 16:05 | NUR ---
ACT resulted with 184. Received phone order from Dr. Renteria with RB to pull sheath now. RICKEY Perea informed.
--- NOTE | 2018-12-20 16:15 | NUR ---
bedside report received from Eva MARTÍNEZ. Alert oriented and appropriate, PERRLA, respirations even and unlabored to room air. Pulses x4 equal and weak. Pedal pulses PT/DP palpable with trace edema bilateral marked. Cap fill brisk < 3 sec. Skin warm and dry integrity appears intact despite pt c/o itching to backside. No PIV, using venous sheath for fluids. Abdomen soft and supple. ESRD. Spouse at bedside. Pt and family verbalizes understanding of POC. bedside telemetry Sinus Tach 100-110. Currently w/ complaint of itching to backside, skin inspection and dry towel placed posteriorly. Eva informing order to pull sheaths with ACT of 189. preparation of sheath pull. education provided.-cgf
--- NOTE | 2018-12-20 16:30 | NUR ---
hemostasis obtained by Eliazar URIAS. Site inspection performed, pedal pulses palpable weak, and right groin w/o gross/evident s/s of hematoma. Clean dressing applied and education provided to spouse. Warm blanket placed to backside, while right groin protected, to aid in moisture control. Dr Renteria paged for RX regarding itching.-f
--- NOTE | 2018-12-20 17:15 | NUR ---
Dr do return page. Pt spouse gave 25mg Benadryl PO.
--- NOTE | 2018-12-20 19:05 | NUR ---
POC and discharge time of 2029 this yasmin reviewed with family and patient. Spouse stating, " yes we want to go home tonight, he has dialysis in the morning. Our daughter will drive us home." Plan: Discharge at 2029 , 4 hours post sheath hemostasis.-cgf
--- NOTE | 2018-12-20 20:25 | NUR ---
DC criteria met. Alert oriented and appropriate, PERRLA, respirations even and unlabored to room air. Pulses x4 equal and weak. dependent pedal swelling remains, trace. Pedal pulses PT/DP weak. Cap fill brisk < 3 sec. Skin warm and dry integrity appears intact. After removing gown observed numerous bruises across abdomen in various stages of healing. Spouse states, " this is what the ambulance does to him when he goes for dialysis" no gross deformities observed. IV 20g to left anterior AC area removed. mild swelling. Coban dressing applied with instructions to remove before HS. Abdomen soft and supple. spouse assisting with transfer to via personal gait belt. Assures that this is a norm. Pt and family verbalizes understanding of follow up. Patent transferred to front of facility via where patient was DC to private care with gait transfer by family. - cgf
--- NOTE | 2018-12-20 21:27 | Operative Report ---
DATE OF PROCEDURE: December 20, 2018 PROCEDURE PERFORMED: Cardiac catheterization. PROCEDURE INDICATION: Chronic severe systolic heart failure, new diagnosis in the patient with severe atherosclerotic vascular disease, severe PAD with prior revascularizations, angina pectoris, stable. PROCEDURE COMPLICATIONS: None. ESTIMATED BLOOD LOSS: Less than 15 mL. PROCEDURE SUMMARY: After consent was obtained, the patient was prepped and draped in a sterile fashion. The right femoral site was locally infiltrated with 2% lidocaine. Access was obtained with micropuncture kit to the right common femoral artery with a 6-Ukrainian sheath and to the right common femoral vein with 4-Ukrainian sheath for venous access throughout the procedure. JL-4 catheter 6-Ukrainian was used for engagement of the left main. JL-4 catheter was used for engagement of the right coronary artery as well as to cross the aortic valve for hemodynamic measurements. The JL-4 catheter was 4-Ukrainian in size to engage the right coronary artery. An XB LAD 3.5 no side-hole guide catheter was used with and runthrough wire to cross the left main and placed it to the distal LAD for intravascular ultrasound of the left main into the LAD to further clarify left main ventricularization and eccentric plaque, on some views possibly moderate to severe and some views minimal. Of note, all catheters were exchanged over an exchange-length wire with a careful advancement across the iliac stent. Manual pressure hemostasis was applied at the end of the procedure. Following findings were noted: 1. No significant gradient noted across the aortic valve with LVEDP of 20% to 25%. 2. There is a common origin of left main and right coronary artery from the left coronary cusp. It seemed to resonate from a single ostium. This is an anomalous origin right coronary artery. 3. The left main gets off after take off of right coronary artery from common origin. The left main has an area of eccentric stenosis. After intravascular ultrasound assessment, minimal luminal diameter is more than 3 mm. There is 180-degree calcification in parts of the left main and there is 30% stenosis of the left main. 4. The LAD arises from the left main and it has mild disease, 40% proximal, 30% in the distal segment. It gives diagonals and septal perforators of small caliber. 5. The circumflex arises from the left main. It gives a couple of obtuse marginals and has mild disease, less than 30%. 6. The right coronary artery arises from the common ostium with left main from the left coronary cusp. It has mild disease, less than 30%. It gives a couple of obtuse marginals and is dominant giving RPDA and a small RPLD. 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 RECOMMENDATIONS 1. Aggressive medical therapy for heart failure and continue risk factor optimization and management of atherosclerotic vascular disease. 2. After three months of optimal therapy, reassess ventricular systolic function. Depending on this, consider candidacy for ICD therapy. Case discussed with patient and family members. Job#: [id number] LOURDES
== END | disposition home or self-care (01) ==
LOC: CATH LAB 08:15
PROVIDERS: ATTEND Internal Medicine Cardiovascular Disease
DX: I25.118 Atherosclerotic heart disease of native coronary artery with other forms of angina pectoris (principal); I25.83 Coronary atherosclerosis due to lipid rich plaque; I13.0 Hypertensive heart and chronic kidney disease with heart failure and stage 1 through stage 4 chronic kidney disease, or unspecified chronic kidney disease; N18.9 Chronic kidney disease, unspecified; I50.22 Chronic systolic (congestive) heart failure; Q24.5 Malformation of coronary vessels; I50.84 End stage heart failure; E78.5 Hyperlipidemia, unspecified; I48.0 Paroxysmal atrial fibrillation; E11.22 Type 2 diabetes mellitus with diabetic chronic kidney disease; N18.6 End stage renal disease; E11.51 Type 2 diabetes mellitus with diabetic peripheral angiopathy without gangrene; Z79.4 Long term (current) use of insulin; Z79.01 Long term (current) use of anticoagulants; Z79.02 Long term (current) use of antithrombotics/antiplatelets; Z79.82 Long term (current) use of aspirin
CPT/HCPCS: 36415 ×2; 80053; 80061; 82948; 85025; 85347; 85610; 85730; 92978; 93005; 93458; C1766; C1769 ×2; J2001; J2250; J7030; Q9967

== ENCOUNTER 2019-01-29 08:22 | Inpatient (IN) | payer MEDICARE, OTHER ==
[2019-01-26 10:56] LABS: BASOPHILS # (AUTO) 0.1 (0.0-0.1); BASOPHILS % 0.6 % (0.0-1.0); EOSINOPHILS # (AUTO) 0.3 (0.0-0.4); EOSINOPHILS % 3.7 % (0.0-6.0); HEMATOCRIT 33.7 % (38.2-49.6); HEMOGLOBIN 10.7 g/dL (14.0-18.0); LYMPHOCYTES % 10.9 % (18.0-39.1); MEAN CORPUSCULAR HEMOGLOBIN 35.5 pg (28-32); MEAN CORPUSCULAR HGB CONC 31.8 g/dL (31-35); MONOCYTES # (AUTO) 0.9 (0.2-0.8); MONOCYTES % 9.6 % (4.4-11.3); NEUTROPHILS # (AUTO) 6.7 (2.1-6.9); NEUTROPHILS % 74.9 % (38.7-80.0); PLATELET COUNT 228 x10e3/uL (140-360); RED BLOOD COUNT 3.01 x10e6/uL (4.3-5.7); RED CELL DISTRIBUTION WIDTH 20.3 % (11.7-14.4)
[2019-01-26 11:09] LABS: ANION GAP 17.4 mmol/L (8-16); CALCIUM 8.9 mg/dL (8.4-10.2); CREATININE, SERUM 4.17 mg/dL (0.72-1.25); POTASSIUM 5.4 mmol/L (3.5-5.1)
[~2019-01-29] VITALS: Ht 185.4 cm; Wt 84.6 kg
[2019-01-29] VITALS (10 sets, daily range): BP systolic 91–174; BP diastolic 60–134
[~2019-01-29 08:22] MED LIST changes: -FENTANYL CITRATE/PF 100MCG/2 ML INJ ONE; -HEPARIN SOD/SOD CHLORIDE 2,000 ML ONE; -IOPAMIDOL 370 MG/ML 200 ML INFUS..BTL INJ ONE; -LIDOCAINE HCL 1% LOCAL INJ 20 ML VIAL ONE; -MIDAZOLAM HCL 2 MG/2 ML VIAL ONE; -SODIUM CHLORIDE 0.9% 1000ML 1,000 ML ONE
[2019-01-29] MEDS ORDERED: HEPARIN SOD (PORCINE) 1000 UNIT/ML 30ML ONE (09:39)
[2019-01-29] MEDS ORDERED: MIDAZOLAM HCL 2 MG/2 ML VIAL ONE (09:40)
[2019-01-29] MEDS ORDERED: LIDOCAINE HCL 2% LOCAL 20 ML VIAL ONE ×2 (09:40→10:41)
[2019-01-29] MEDS ORDERED: CLOPIDOGREL BISULFATE 75 MG TAB ONE (09:40)
[2019-01-29] MEDS ORDERED: FENTANYL CITRATE/PF 100MCG/2 ML INJ ONE (09:40)
[2019-01-29] MEDS ORDERED: ASPIRIN 325 MG TAB ONE (09:40)
[2019-01-29] MEDS ORDERED: IOPAMIDOL 300MG/ML 100 ML INFUS..BTL IV ONE (09:41)
[2019-01-29] MEDS ORDERED: HEPARIN SOD/SOD CHLORIDE 2,000 ML ONE (09:41)
[2019-01-29] MEDS ORDERED: SODIUM CHLORIDE 0.9% 1000ML 1,000 ML ONE ×2 (09:41→20:42)
[2019-01-29] MEDS ORDERED: NITROGLYCERIN/D5W 200 MCG/ML 250 ML ONE (09:41)
--- NOTE | 2019-01-29 11:15 | NUR ---
bedside report received from Alejandro Zamorano RN. Oriented to person and place, and appropriate, PERRLA, respirations even and unlabored to room air. Pulses x4 extremities equal and weak. Pedal pulses PT/DP weak. Cap fill brisk > 3 sec. Pt in AFIb in controlled rate. Skin warm and dry integrity appears intact. 4 Luxembourgish sheath for venous sheath access. presents healthy w/o s/s of infiltration or complaint. Abdomen soft and supple. pt offered toileting, denies need to urinate or defecate. No personal affects with patient. Family XXXXX. Pt and family verbalizes understanding of POC. Pre-Op Meds XXXXX. Ppatient transferred from XXXXX by malthouse laborer escort on bed, telemetry pack XXXXX. Currently w/o complaint of pain or need. Patient introduced to cath team and brief summary provided to team. Transferred to procedure table under own strength w/o duress. Patient secured to procedral table and patient prepped in usual fashion for XXXXX procedure. Hypercapnia monitoring intiated. -cgf Addendum: 01/29/19 at 1223 by Apollo Lindsey RN Abdomen soft and supple. Depend on, cleand/dry. Personal affects with patient. Family speaking with Dr Renteria. Pt and family verbalizes understanding of POC. placed to bedside monitoring. No acute distress. CHG dressing applied to left groin venous access. Call light at side, bed low and locked. SR up x2, door to control room open.
--- NOTE | 2019-01-29 12:11 | NUR ---
Family to bedside. Pt continues to rest w/ eyes closed responding to tactile touch. No acute distress. POC reviewed with family. Blood sugar spot check 82mg/Dl - cgf
--- NOTE | 2019-01-29 12:23 | NUR ---
Report provided to Carlota MARTÍNEZ, review of procedural findings and medications given. Patient drowsy easily aroused. maintains airway and room air saturations of 94-96%. No gross issues of pressure, pain, pallor or dysrhythmia. IV site patent with NS 0.9% at KVO by gravity. patient hemodynamically stable with hemostasis. right groin dressing CDI w/o s/s of bleeding. patient transferred to [facility] on telemetry by [facility] [place] procedure: Aborted peripheral diagnostic Sheath puller: NA Meds Given Intra-Procedure Sedatives Versed - 1 mg Fentanyl - 25 mcg Fluids Input - 150 ml Output - esrd
[2019-01-29] MEDS ORDERED: DEXTROSE 50% SYRINGE 50 ML IV PRN (13:00)
--- NOTE | 2019-01-29 13:21 | Pre Op History & Physical ---
ADMISSION DIAGNOSES: Peripheral artery disease with critical limb ischemia with plans for revascularization. The patient in need for dialysis. HISTORY OF PRESENT ILLNESS: Mr. Odonnell is a 78-year-old man with paroxysmal atrial fibrillation, hypertension, dyslipidemia, type 2 diabetes mellitus, CAD, severe systolic heart failure with predominant nonischemic cardiomyopathy component, and peripheral vascular disease, status post aortoiliac stents and left SFA revascularization, presenting with critical limb ischemia affecting the right lower extremity in the setting of a totally occluded ostial right SFA with tandem lesions of 70, 60, and 95% across the SFA of the right lower extremity on an antegrade angiogram performed today. An antegrade approach revascularization was attempted, however, due to absence of adequate proximal cap stump, it was decided to hold off on further attempts and attempt retrograde popliteal revascularization tomorrow. The patient will need dialysis and is being admitted for Nephrology consultation and to consider dialysis in a.m. prior to revascularization, could be a popliteal retrograde approach endovascularly in p.m. tomorrow. He has no current complaints. Case was discussed with the patient's family members. REVIEW OF SYSTEMS: A 12-system review is negative except as noted above. PAST MEDICAL HISTORY: As per HPI. PAST SURGICAL HISTORY: Significant for carotid endarterectomy, history of skin cancer, status post biopsy and surgical excision, peripheral vascular disease with prior revascularization, right upper extremity amputation. FAMILY HISTORY: Significant for diabetes mellitus, hypertension, CAD. SOCIAL HISTORY: Former smoker, quit in 2006. ALLERGIES: NO KNOWN DRUG ALLERGIES. MEDICATIONS: Include doxepin, flaxseed, MiraLAX, ropinirole, Levemir insulin, acidophilus, vitamin D3, vitamin C, calcitriol, triamcinolone cream, Plavix 75 mg daily, primidone, CoQ10, nitroglycerin p.r.n., atorvastatin 20 mg at bedtime, aspirin 81 mg daily, Eliquis 2.5 mg every 12 hours, currently on hold, metoprolol tartrate 25 mg every 12 hours. PHYSICAL EXAMINATION: VITAL SIGNS: Heart rate 62, blood pressure 160/80, respiratory rate 18, afebrile. GENERAL: In no acute distress, alert. NECK: No JVD. CHEST: Clear to auscultation. CARDIOVASCULAR: Irregularly irregular rate and rhythm. Normal S1, S2. No S3, no S4. Laterally displaced PMI. ABDOMEN: Soft, nontender. EXTREMITIES: Right upper extremity amputation. Lower extremities with trace edema, abnormal PT and DP pulses with ischemic changes to left toes. ASSESSMENT: 1. Peripheral artery disease. 2. End-stage renal disease. 3. Diabetes mellitus. 4. Hypertension. 5. Dyslipidemia. 6. Chronic severe systolic heart failure. 7. Coronary artery disease. RECOMMENDATIONS: 1. Nephrology consultation for consideration of inpatient dialysis. 2. Consider staged popliteal revascularization to right lower extremity tomorrow p.m. Gibran Maher MD AFV/MODL /[id number]
--- NOTE | 2019-01-29 13:38 | NUR ---
PATIENT ARRIVED ON THE UNIT AT 1230 PER STRETCHER FROM [employer]. PATIENT IS IN STABLE CONDITION WITH NO S/S OF RESPIRATORY DISTRESS. NO PAIN VOICED. DRESSING TO RIGHT GROIN IS DRY AND INTACT. SHEATH PRESENT TO LEFT FEMORAL ACCESS- FLUIDS INFUSING TO KVO. PATIENT HAS AMPUTATED RIGHT ARM. RIGHT CALF ULCER NOTED- OPEN TO AIR. BILATERAL TOES AND HEELS ARE OPEN TO AIR. DIAPER APPLIED. PRESENT IN ROOM. CALL LIGHT IS WITHIN REACH, PATIENT INSTRUCTED TO CALL FOR ASSISTANCE NEEDED.
--- NOTE | 2019-01-29 13:41 | Operative Report ---
DATE OF PROCEDURE: 01/29/2019 SURGEON: Gibran Maher MD PROCEDURE INDICATION: Critical limb ischemia to right lower extremity. PROCEDURE PERFORMED: 1. Right lower extremity unilateral selective angiography. 2. Ultrasound-guided access to right common femoral artery for antegrade approach. PROCEDURE COMPLICATIONS: None. ESTIMATED BLOOD LOSS: Less than 50 mL. PROCEDURE SUMMARY: After consent was obtained, the patient was prepped and draped in a sterile fashion. The right femoral site was locally infiltrated with 2% lidocaine where micropuncture access was obtained and micropuncture dilator advanced over wire after ultrasound-guided access allowed wire into the profunda femoris. The positioning of Wholey wire to engage ostium of right SFA was met with inability to identify by wire interrogation or selective angiography adequate stump for antegrade revascularization with additional images obtained in orthogonal views and digital subtraction. Additional angiography was performed confirming anatomy of the right lower extremity, mainly ostial right SFA SUBMARINE OPERATOR 100% with tandem lesions, 70%, 60% and 95% across the right SFA and a patent right popliteal artery with patent three-vessel runoff proximally in the right leg. Angiography demonstrates stable anatomy for retrograde right popliteal access, which will be attempted tomorrow. Manual pressure hemostasis applied to the antegrade access site achieving hemostasis. CONCLUSION: Peripheral arterial disease status post attempted antegrade revascularization, aborted. RECOMMENDATIONS: 1. Retrograde popliteal revascularization to be considered tomorrow p.m. 2. Bed rest. 3. Dual antiplatelet therapy. 4. Nephrology consultation. Gibran Maher MD AFV/MODL /[id number]
--- NOTE | 2019-01-29 13:59 | NUR ---
CALLED AND SPOKE WITH DEANDRA SERRANO, REGARDING PATIENT'S DIALYSIS DAYS: Linda LIRIANO INFORMED BY RN THAT DR. BENNETT WAS INFORMED PATIENT WAS ON THE UNIT AND WAS ORDERED TO CALL [facility].
[2019-01-29 14:05] LABS: HEMOGLOBIN 10.6 g/dL (14.0-18.0); MEAN CORPUSCULAR HEMOGLOBIN 35.7 pg (28-32); MEAN CORPUSCULAR HGB CONC 32.1 g/dL (31-35); MEAN CORPUSCULAR VOLUME 111.1 fL (81-99); PLATELET COUNT 245 x10e3/uL (140-360); RED BLOOD COUNT 2.97 x10e6/uL (4.3-5.7); RED CELL DISTRIBUTION WIDTH 20.3 % (11.7-14.4)
[2019-01-29 14:14] LABS: ANION GAP 17.8 mmol/L (8-16); CREATININE, SERUM 5.6 mg/dL (0.72-1.25)
[2019-01-29 14:21] LABS: POTASSIUM 5.8 mmol/L (3.5-5.1)
--- NOTE | 2019-01-29 14:38 | NUR ---
BEDSIDE REPORT GIVEN TO ICU NURSE. PATIENT TRANSFERRED TO ROOM 191.
--- NOTE | 2019-01-29 14:50 | NUR ---
RECVD PT LETHARGIC RESPONDS TO PERSISTENT INSTRUCTIONS. LEFT HAND IV INSERTED. LEFT GROIN SHEETH REMOVED. PRESSURE HELD FOR 20 MINUTES, SOFT GROIN, PULSES PRESENT WEAK.
[2019-01-29 15:03] LABS: EOSINOPHILS % (MANUAL) 1 % (0-7); LYMPHOCYTES % (MANUAL) 19 % (19-48); MONOCYTES % (MANUAL) 6 % (3.4-9.0); NEUTROPHILS % (MANUAL) 73 % (40-74)
[2019-01-29 15:04] LABS: HYPOCHROMASIA MODERATE; PLATELET ESTIMATE ADEQUATE; PLATELET MORPHOLOGY COMMENT NORMAL; RBC MORPHOLOGY COMMENT NORMAL
[2019-01-29] MEDS: INSULIN REGULAR, HUMAN 100 UNIT/1 ML 3ML VIAL SQ SCH ×2 (16:30→22:08)
--- NOTE | 2019-01-29 17:00 | NUR ---
PT TRANSFERRED BACK TO ROOM 293, CALLED REPORT TO JACEK
--- NOTE | 2019-01-29 18:24 | NUR ---
CALL PLACED OUT TO [facility] [place]- SPOKE WITH CAMILO REGARDING STAT HEMODIALYSIS ORDER BEFORE 2200.
--- NOTE | 2019-01-29 19:40 | NUR ---
PATIENT IS AWAKE AND IN STABLE CONDITION WITH NO S/S OF RESPIRATORY DISTRESS. NO PAIN VOICED. PATIENT IS DUE TO RECEIVE DIALYSIS THE EVENING PER DR. BENNETT'S STAT ORDER. PRESENT IN ROOM. PATIENT REMAINS FLAT IN BED UNTIL 2100. BED ALARM ON. CALL LIGHT IS WITHIN REACH, PATIENT INSTRUCTED TO CALL FOR ASSISTANCE NEEDED. BEDSIDE REPORT GIVEN TO ONCOMING NURSE.
--- NOTE | 2019-01-29 19:59 | NUR ---
PT IS RESTING IN BED. NO RESPIRATORY DISTRESS NOTED. BED IN THE LOWEST POSITION, LOCKED, AND CALL LIGHT WITHIN REACH. WILL CONTINUE TO MONITOR.
[2019-01-29] MEDS: ATORVASTATIN 20 MG TAB PO SCH (22:08)
[2019-01-30] VITALS (8 sets, daily range): BP systolic 120–171; BP diastolic 64–86
[2019-01-30] MEDS: METOPROLOL TARTRATE 25 MG TAB PO SCH ×3 (00:05→22:14)
--- NOTE | 2019-01-30 00:13 | Consultation ---
DATE OF CONSULTATION: Consultation Note REASON FOR CONSULTATION: End-stage renal disease and hyperkalemia. HISTORY OF PRESENT ILLNESS: The patient is a very pleasant 78-year-old male with past medical history of ESRD, on hemodialysis, Tuesday, , and Tuesday; paroxysmal atrial fibrillation; hypertension; dyslipidemia; diabetes type 2; coronary artery disease; CHF with nonischemic cardiomyopathy; peripheral vascular disease, status post aortoiliac stent and left SFA revascularization; was admitted with right lower ischemia. The patient had an angiogram done by Dr. Renteria today. The patient is to go for revascularization again tomorrow. The patient was found to have a potassium of 5.8. Currently, denies having any complaint. PAST MEDICAL HISTORY: As above. PAST SURGICAL HISTORY: Carotid endarterectomy, surgical excision of skin cancer, and right upper extremity amputation. FAMILY HISTORY: Positive for diabetes, hypertension, and coronary artery disease. SOCIAL HISTORY: Quit smoking in 2006. Lives at home with his , who is a primary daycare teacher. No alcohol. No intravenous drug abuse. ALLERGIES: NO KNOWN DRUG ALLERGIES. MEDICATIONS: As per MAR. REVIEW OF SYSTEMS: Pertinent positive ones as per HPI. PHYSICAL EXAMINATION: VITAL SIGNS: Blood pressure 134/76, pulse of 65, respirations 19, temperature 96.1, and 96% on 2 liters. GENERAL: Awake and alert, not in apparent distress. HEENT: PERRLA. Extraocular muscles are intact. NECK: No JVD. HEART: S1 and S2. LUNGS: Clear to auscultation bilaterally. ABDOMEN: Soft. Bowel sounds positive. EXTREMITIES: No edema. LABS: White count 7.7, hemoglobin 10.6, and platelet count is 245. Sodium 133, potassium 5.8, chloride 96, CO2 is 25, BUN 72, creatinine 5.6, glucose is 69, and calcium is 9. ASSESSMENT AND PLAN: 1. End-stage renal disease. Continue with the Tuesday, , and Tuesday dialysis. 2. Hyperkalemia. We will do 2 hours of stat dialysis and then dialysis again tomorrow for 3 hours. On renal diet. 3. Anemia of chronic kidney disease. Continue with low-dose Epogen. 4. Peripheral vascular disease, right lower extremity gangrene. Dr. Renteria is following. Revascularization of the lower extremity tomorrow. 5. Diabetes mellitus type 2. Per primary team. 6. Hypertension, controlled. Discussed with the at bedside. I want to thank Dr. Renteria for the consult. We will follow the patient with you. MD LORI Jesus/MODL /[id number]
--- NOTE | 2019-01-30 02:50 | NUR ---
PT IS CONFUSE. PT KEEPS PULLING OFF HIS TELE LEADS AND DIALYSIS CATHETER DRESSING. TELE LEADS AND DRESSING REPLACE. WILL CONTINUE TO MONITOR.
--- NOTE | 2019-01-30 06:02 | NUR ---
REPLACE PT DIALYSIS DRESSING FOR THE THIRD TIME. PT KEEPS PULLING OF DRESSING.
[2019-01-30] MEDS: INSULIN REGULAR, HUMAN 100 UNIT/1 ML 3ML VIAL SQ SCH ×4 (07:30→22:11)
[2019-01-30] MEDS: ASPIRIN 81 MG ENTERIC COATED PO SCH (07:59)
[2019-01-30] MEDS: CLOPIDOGREL BISULFATE 75 MG TAB PO SCH (08:00)
[2019-01-30] MEDS ORDERED: ATORVASTATIN 20 MG TAB PO SCH (09:00)
[2019-01-30] MEDS ORDERED: ASPIRIN 325 MG TAB PO SCH (09:00)
[2019-01-30] MEDS ORDERED: SODIUM CHLORIDE 0.9% 1000ML 1,000 ML ONE (11:25)
--- NOTE | 2019-01-30 13:27 | NUR ---
WOUND CARE CONSULTATION: THIS IS A 78 YEAR OLD MALE PATIENT ADMITTED TO [facility] FOR PERIPHERAL ANGIOGRAM WITH INTERVENTION. PATIENT HAS A HISTORY OF ARIAL FIBRILLATION, HTN, DYSLIPIDEMIA, DM TYPE 2, CAD, HEART FAILURE, AND PVD. HEAD TO TOE SKIN ASSESSMENT PERFORMED. PATIENT HAS A RIGHT HEEL ULCER MEASURING 1.8X0.5X0CM, 100% STABLE ESCHAR TO WOUND BED. HE HAS A RIGHT POSTERIOR ANKLE ULCER MEASURING 1X2.2X0CM, 100% STABLE ESCHAR TO WOUND BED. HE HAS A RIGHT LATERAL ANKLE ULCER MEASURING 0.5X0.6X0CM, 100% STABLE ESCHAR NOTED TO WOUND BED. HE HAS A RIGHT MEDIAL LOWER LEG ULCER MEASURING 4.4X1.2X0CM, 100% STABLE ESCHAR TO WOUND BED. HE HAS A RIGHT KNEE ULCER MEASURING 2X1.5X0CM, 100% STABLE ESCHAR TO WOUND BED. HE HAS A RIGHT LATERAL GREAT TOE ULCER MEASURING 0.8X0.7X0, 100% ESCHAR TO WOUND BED. HE HAS A RIGHT DORSAL GREAT TOE ULCER MEASURING 0.5X0.7X 0CM, 100% ESCHAR NOTED TO WOUND BED. HE HAS A RIGHT 3RD TOE ULCER MEASURING 0.4X0.4X0CM, 100% STABLE ESCHAR NOTED TO WOUND BED. PATIENT HAS A RIGHT 4TH TOE ULCER MEASURING 0.3X0.3X0CM, 100% STABLE ESCHAR NOTED. HE HAS A LEFT GREAT TOE ULCER MEASURING 0.3X0.3X0CM, 100% STABLE ESCHAR NOTED. PATIENT HAS A LEFT POSTERIOR ANKLE ULCER MEASURING 2.5X1.5X0CM, 100% ESCHAR NOTED TO WOUND BED. PATIENT HAD AN ANGIOGRAM YESTERDAY, AND IT WAS UNSUCCESSFUL. DR. WRIGHT TAKING PATIENT TODAY AT 4PM FOR REVASCULARIZATION VIA A POPLITEAL RETROGRADE APPROACH ENDOVASCULARLY. LABS: WBC7.72 [id number] RECOMMENDATION: -APPLY ALTERNATION PRESSURE RELIEF MATTRESS. -APPLY BILATERAL HEEL PROTECTORS WITH PILLOW SUSPENSION. -TURN EVERY 2 HOURS AND PRN. -NURSING TO CLEAN BILATERAL RIGHT AND LEFT FOOT AND BILATERAL LEG ULCERS WITH NORMAL SALINE, PAT DRY, APPLY BETADINE WET TO DRY DRESSINGS; CHANGE DRESSINGS DAILY AND PRN. THANK YOU FOR THIS WOUND CARE CONSULT. Addendum: 01/30/19 at 1349 by Merly Quinn RN Amended: Links added.
[2019-01-30] MEDS ORDERED: HEPARIN SOD (PORCINE) 1000 UNIT/ML SDV IV PRN (16:00)
[2019-01-30] MEDS ORDERED: METOPROLOL TARTRATE 25 MG TAB PO NR (16:02)
--- NOTE | 2019-01-30 16:03 | NUR ---
CALLED AND SPOKE WITH DR. WEST REGARDNG PATIENT'S BLOOD PRESSURE POST DIALYSIS AND PATIENT'S REQUEST FOR PAIN MEDICATION- RECEIVED NEW ORDERS.
[2019-01-30] MEDS: TRAMADOL HCL 50 MG TAB PO PRN (16:13)
[2019-01-30] MEDS ORDERED: EPOETIN ALFA 10000 UNIT/ML VIAL SC SCH (18:00)
--- NOTE | 2019-01-30 19:16 | NUR ---
PATIENT IS RESTING IN BED- IN STABLE CONDITION WITH NO S/S OF RESPIRATORY DISTRESS. NO PAIN VOICED. PATIENT HAD DIALYSIS TODAY AND HAD 2.3LITERS REMOVED. PRESENT IN ROOM. PATIENT IS AWARE HE WILL BE NPO AFTER MIDNIGHT. CALL LIGHT IS WITHIN REACH, PATIENT INSTRUCTED TO CALL FOR ASSISTANCE NEEDED. BEDSIDE REPORT GIVEN TO ONCOMING NURSE.
--- NOTE | 2019-01-30 19:43 | NUR ---
PT IS RESTING IN BED WITH AT BEDSIDE. NO RESPIRATORY DISTRESS NOTED. BED IN THE LOWEST POSITION, LOCKED, BED ALARM ON, AND CALL LIGHT WITHIN REACH. WILL CONTINUE TO MONITOR.
--- NOTE | 2019-01-30 21:19 | Progress Note ---
DATE: 01/30/2019 Cardiology Progress Note. SUBJECTIVE: No new complaints. Unable to proceed with angiogram today given experimental machining lab manager being unavailable up until after 7 p.m. The patient is diabetic. He is already at risk for hypoglycemia given his frailty. The patient opted for rescheduling for tomorrow. I have requested a time frame in the experimental machining lab manager and received confirmation by cath team. We will plan for retrograde right popliteal peripheral angiography and intervention tomorrow a.m. OBJECTIVE: VITAL SIGNS: Temperature 97.6, heart rate 113, blood pressure 153/80, respiratory rate 22, O2 saturation 96% on room air. GENERAL: No acute distress, alert. NECK: No JVD. CHEST: Clear to auscultation. CARDIOVASCULAR: Irregular rate and rhythm. Normal S1, S2. No S3 or S4. Systolic ejection murmur. ABDOMEN: Soft. EXTREMITIES: No edema. Right foot covered with dressings. MEDICATIONS: Cardiovascular medications reviewed. Atorvastatin 20 mg at bedtime, clopidogrel 75 mg daily, metoprolol tartrate 25 mg every 12 hours, aspirin 81 mg daily. LABORATORY DATA: Studies reviewed. Sodium 133, potassium 5.8, chloride 96, bicarbonate 25, BUN 72, creatinine 5.6, glucose 69. White blood cells 7.7, hemoglobin 10.6, platelets 245. ASSESSMENT: 1. A 78-year-old man with peripheral vascular disease, critical limb ischemia affecting right lower extremity. 2. End-stage renal disease. 3. Hypertension. 4. Dyslipidemia. 5. Diabetes mellitus. 6. Status post right upper extremity amputation. 7. Severe chronic systolic heart failure. 8. CAD, [id number]. 9. Nonischemic cardiomyopathy. RECOMMENDATIONS: 1. Status post dialysis today. 2. Plan for popliteal retrograde revascularization tomorrow a.m. 3. Continue dual antiplatelet therapy, statin, beta-kina, and anticipate discharge tomorrow p.m. if no complications arise. Gibran Maher MD AFV/MODL /[id number]
[2019-01-30] MEDS: ATORVASTATIN 20 MG TAB PO SCH (22:11)
[2019-01-31] VITALS (19 sets, daily range): BP systolic 106–158; BP diastolic 56–89
[2019-01-31] MEDS ORDERED: SODIUM CHLORIDE 0.9% 1000ML 2,000 ML IV PRN (07:30)
[2019-01-31] MEDS: INSULIN REGULAR, HUMAN 100 UNIT/1 ML 3ML VIAL SQ SCH ×4 (07:30→21:00)
[2019-01-31] MEDS ORDERED: ALBUMIN 25% 12.5GM 0.25 GM/ML BTL IV PRN (07:30)
[2019-01-31] MEDS ORDERED: SODIUM CHLORIDE 0.9% 250ML 500 ML IV PRN (07:30)
[2019-01-31] MEDS: CLOPIDOGREL BISULFATE 75 MG TAB PO SCH (09:00)
[2019-01-31] MEDS: METOPROLOL TARTRATE 25 MG TAB PO SCH ×3 (09:00→23:59)
[2019-01-31] MEDS: ASPIRIN 81 MG ENTERIC COATED PO SCH (09:00)
--- NOTE | 2019-01-31 10:30 | NUR ---
Pt being transferred to mine laborer at this time for angiogram with Dr. Renteria. Pt is aox3 and able to verbalize needs. Denies any pain at this time.
[2019-01-31] MEDS ORDERED: LIDOCAINE HCL 2% LOCAL 20 ML VIAL ONE (10:36)
[2019-01-31] MEDS ORDERED: IOPAMIDOL 300MG/ML 100 ML INFUS..BTL IV ONE ×2 (10:36→12:57)
[2019-01-31] MEDS ORDERED: HEPARIN SOD/SOD CHLORIDE 2,000 ML ONE (10:36)
[2019-01-31] MEDS ORDERED: SODIUM CHLORIDE 0.9% 1000ML 1,000 ML ONE ×2 (10:36→11:13)
[2019-01-31] MEDS ORDERED: HEPARIN SOD (PORCINE) 1000 UNIT/ML 30ML ONE (11:13)
[2019-01-31] MEDS ORDERED: FENTANYL CITRATE/PF 100MCG/2 ML INJ ONE (11:13)
[2019-01-31] MEDS ORDERED: MIDAZOLAM HCL 2 MG/2 ML VIAL ONE (11:13)
[2019-01-31] MEDS ORDERED: DIPHENHYDRAMINE HCL INJ 50 MG/ML VIAL ONE (12:18)
--- NOTE | 2019-01-31 13:00 | NUR ---
Report received from Ino Espinal RN with a HR of 122. Act drawn per protocol, results 237. Addendum: 01/31/19 at 1419 by Alycia Mireles RN Correction, the above report was received from Alejandro Zarate RN was at 1400 not 1300. The PACU clocks have not been updated with the correct time since daylight savings on 01/21/18.
--- NOTE | 2019-01-31 15:00 | NUR ---
Act drawn per protocol, result is 184.
--- NOTE | 2019-01-31 15:45 | NUR ---
Act drawn per protocol, result is 160. Right pedal sheath pulled @ 1555, thuan. well. Manual pressure held x20 minutes, hemostasis obtained. VSS
[2019-01-31] MEDS ORDERED: ATROPINE SULFATE 0.1 MG/ML 10ML SYR ONE (15:53)
--- NOTE | 2019-01-31 16:29 | NUR ---
Report called to Michelle Lopez RN. Patient transported to room 293.
--- NOTE | 2019-01-31 17:00 | NUR ---
Pt returned form medical lab director at this time. Pt is aox3 and able to verbalize needs. right pedal puncture site is dry and intact, with brace over area to keep pressure over site. Family at the bedside.
[2019-01-31] MEDS: TRAMADOL HCL 50 MG TAB PO PRN (17:47)
--- NOTE | 2019-01-31 19:23 | NUR ---
Received change of shift report from AM nurse. Rounds completed.
--- NOTE | 2019-01-31 19:45 | NUR ---
S/W Dr Renteria regarding patent. S/W also. Patient d/c home after dialysis tomorrow.
[2019-01-31] MEDS: ATORVASTATIN 20 MG TAB PO SCH (21:00)
--- NOTE | 2019-01-31 22:00 | NUR ---
Patient HR at 138 and BP at 106/63. states do not give metoprolol due to med dropping bp very quickly. Med refused.
[2019-02-01] VITALS: BP 118/57
--- NOTE | 2019-02-01 | NUR ---
Patient received metoprolol for HR 130s. Bp WNL. Monitor for changes.
--- NOTE | 2019-02-01 04:54 | NUR ---
Patient resting quitly at this time. No c/o noted. Continue monitor.
[2019-02-01 07:51] VITALS: BP 153/69
[2019-02-01 08:00] VITALS: BP 153/69
[2019-02-01 08:25] LABS: BASOPHILS # (AUTO) 0.1 (0.0-0.1); BASOPHILS % 0.4 % (0.0-1.0); EOSINOPHILS # (AUTO) 0.1 (0.0-0.4); EOSINOPHILS % 0.6 % (0.0-6.0); HEMOGLOBIN 9.1 g/dL (14.0-18.0); LYMPHOCYTES # (AUTO) 1.1 (1.0-3.2); LYMPHOCYTES % 8.6 % (18.0-39.1); MEAN CORPUSCULAR HEMOGLOBIN 35.5 pg (28-32); MEAN CORPUSCULAR HGB CONC 31.4 g/dL (31-35); MEAN CORPUSCULAR VOLUME 113.3 fL (81-99); MONOCYTES # (AUTO) 1.5 (0.2-0.8); MONOCYTES % 11.7 % (4.4-11.3); NEUTROPHILS # (AUTO) 10.3 (2.1-6.9); NEUTROPHILS % 78.2 % (38.7-80.0); PLATELET COUNT 288 x10e3/uL (140-360); RED BLOOD COUNT 2.56 x10e6/uL (4.3-5.7); RED CELL DISTRIBUTION WIDTH 20.9 % (11.7-14.4)
[2019-02-01] MEDS: INSULIN REGULAR, HUMAN 100 UNIT/1 ML 3ML VIAL SQ SCH (08:26)
[2019-02-01] MEDS: CLOPIDOGREL BISULFATE 75 MG TAB PO SCH (08:26)
[2019-02-01] MEDS: ASPIRIN 81 MG ENTERIC COATED PO SCH (08:26)
[2019-02-01] MEDS: METOPROLOL TARTRATE 25 MG TAB PO SCH (08:33)
[2019-02-01 08:39] LABS: ANION GAP 17.1 mmol/L (8-16); CALCIUM 9.3 mg/dL (8.4-10.2); CREATININE, SERUM 5.65 mg/dL (0.72-1.25)
[2019-02-01 08:42] LABS: POTASSIUM 6.1 mmol/L (3.5-5.1)
--- NOTE | 2019-02-01 10:00 | NUR ---
Spoke with Dr. Renteria this morning to let him know that pt right leg colder than left leg. Pulse is positive with doppler. Some discoloration noted to toes on right foot. Dr. Renteria states this is normal for this pt and pt can discharge after dialysis today and follow up with him in two weeks.
[2019-02-01 11:45] VITALS: BP 125/64
[2019-02-01 12:23] LABS: HYPOCHROMASIA SLIGHT; LYMPHOCYTES % (MANUAL) 9 % (19-48); MONOCYTES % (MANUAL) 13 % (3.4-9.0); NEUTROPHILS % (MANUAL) 78 % (40-74); PLATELET ESTIMATE ADEQUATE; PLATELET MORPHOLOGY COMMENT NORMAL; RBC MORPHOLOGY COMMENT NORMAL
--- NOTE | 2019-02-01 15:00 | NUR ---
Pt discharged at this time. Pt left by ambulance on stretcher. Pt had dialysis before discharge and 2 liters were removed.
--- NOTE | 2019-02-02 13:32 | Operative Report ---
DATE OF PROCEDURE: 01/29/2019 SURGEON: Gibran Maher MD PROCEDURE INDICATION: Severe PAD with critical limb ischemia, staged intervention to right lower extremity. PROCEDURES PERFORMED: 1. Selective lower extremity angiography, unilateral. 2. Third-order catheter placement from right anterior tibial to aorta. 3. CSI atherectomy with 1.5 angel to the right SFA at 60,000 rpm. 4. CREDIT REPORT CHECKER of right SFA and self-expanding stent of ostial right SFA with a LifeStent 7.0 x 80 mm bare-metal stent. 5. Ultrasound-guided access to the right anterior tibial. PROCEDURE COMPLICATIONS: None. ESTIMATED BLOOD LOSS: Less than 15 mL. PROCEDURE SUMMARY: After consent was obtained, the patient was prepped and draped in a sterile fashion. Ultrasound-guided access of the right anterior tibial artery was performed. Heparin was used to maintain an ACT over 250. Aspirin and Plavix were used also for this procedure. A Seeker catheter was advanced into the distal right SFA. Angiography was performed. Additional angiography was then performed afterwards when catheter was repositioned in the aorta. After crossing GAS MAKER HELPER segment to the right SFA with an Astato 0.018 wire. Predilatation was performed with a 4.0 x 220 Ultraverse balloon followed by 6.0 x 220 Ultraverse balloon across the right SFA after initial CSI atherectomy was performed of the mid to distal right SFA with a 1.5 angel at 60,000 rpm. This was followed by ostial right SFA stent performed for significant vessel recoil at this segment. After the deployment of 7.0 x 80 self-expanding LifeStent, postdilatation with a 6.0 x 40 Ultraverse balloon was performed to nominal pressure. Final angiography reveals SONIA-3 flow, no residual flow-limiting dissections or perforations and less than 30% residual stenosis across the treated segment. FINDINGS: The ostial right SFA has 100% chronic total occlusion. The mid SFA has 70% and 90% on the lesions and the distal right SFA 60% stenosis. There is at least two-vessel runoff visualized in the proximal segment of the right lower extremity pre and post procedure. CONCLUSION: CSI atherectomy and stent of the right SFA via pedal retrograde approach. RECOMMENDATIONS: 1. Aspirin, Plavix. 2. Bed rest. 3. Manual pressure hemostasis. 4. Follow up in clinic in 2 to 4 weeks. MD ALFRED Stevenson/ISNA /[id number] MTDD
== END 2019-02-01 15:23 | disposition home or self-care (01) | DRG 270 ==
LOC: CATH LAB 08:22 → PACU V 11:00 → MED/SURG3 12:31 → ICU 14:31 → MED/SURG3 17:12
PROVIDERS: ADMIT Internal Medicine Cardiovascular Disease; ATTEND Internal Medicine Cardiovascular Disease
PROC: 5A1D70Z Performance of Urinary Filtration, Intermittent, Less than 6 Hours Per Day (ICD-10-PCS; principal; 2019-01-29)
PROC: 04CK3ZZ Extirpation of Matter from Right Femoral Artery, Percutaneous Approach (ICD-10-PCS; 2019-01-29)
PROC: 047K3DZ Dilation of Right Femoral Artery with Intraluminal Device, Percutaneous Approach (ICD-10-PCS; 2019-01-29)
PROC: B41F1ZZ Fluoroscopy of Right Lower Extremity Arteries using Low Osmolar Contrast (ICD-10-PCS; 2019-01-29)
PROC: B4101ZZ Fluoroscopy of Abdominal Aorta using Low Osmolar Contrast (ICD-10-PCS; 2019-01-29)
PROC: B41F1ZZ Fluoroscopy of Right Lower Extremity Arteries using Low Osmolar Contrast (ICD-10-PCS; 2019-01-29)
PROC: 5A1D70Z Performance of Urinary Filtration, Intermittent, Less than 6 Hours Per Day (ICD-10-PCS; 2019-01-30)
PROC: 5A1D70Z Performance of Urinary Filtration, Intermittent, Less than 6 Hours Per Day (ICD-10-PCS; 2019-02-01)
DX: E11.51 Type 2 diabetes mellitus with diabetic peripheral angiopathy without gangrene (principal); N18.6 End stage renal disease; I50.22 Chronic systolic (congestive) heart failure; I42.8 Other cardiomyopathies; I12.0 Hypertensive chronic kidney disease with stage 5 chronic kidney disease or end stage renal disease; I99.8 Other disorder of circulatory system; E11.22 Type 2 diabetes mellitus with diabetic chronic kidney disease; Z99.2 Dependence on renal dialysis; I48.0 Paroxysmal atrial fibrillation; Z79.01 Long term (current) use of anticoagulants; Z95.820 Peripheral vascular angioplasty status with implants and grafts; I25.10 Atherosclerotic heart disease of native coronary artery without angina pectoris; D63.1 Anemia in chronic kidney disease; E87.6 Hypokalemia; E87.5 Hyperkalemia; Z89.611 Acquired absence of right leg above knee; Z79.4 Long term (current) use of insulin
CPT/HCPCS: 36247; 36415; 37186; 37227; 75710; 80048; 82948; 85007; 85025; 85027; 86704; 86706; 87340; C1725; C1766; C1769; J1200; J1644; J2001; J2250; J7030; Q4081; Q9967

== ENCOUNTER 2019-02-06 14:00 | Emergency (ER) | payer MEDICARE, OTHER ==
[~2019-02-06] VITALS: Ht 185.4 cm; Wt 84.4 kg
[2019-02-06 17:48] VITALS: BP 6/1
== END 2019-02-06 17:46 | disposition home or self-care (01) ==
LOC: ER 14:00
DX: M79.604 Pain in right leg (principal); I82.411 Acute embolism and thrombosis of right femoral vein; I12.0 Hypertensive chronic kidney disease with stage 5 chronic kidney disease or end stage renal disease; E11.22 Type 2 diabetes mellitus with diabetic chronic kidney disease; N18.6 End stage renal disease; Z99.2 Dependence on renal dialysis; I25.10 Atherosclerotic heart disease of native coronary artery without angina pectoris; Z95.5 Presence of coronary angioplasty implant and graft
CPT/HCPCS: 93926; 93971; 99284

== ENCOUNTER 2019-02-15 13:53 | Emergency (ER) | payer MEDICARE, OTHER ==
[~2019-02-15] VITALS: Ht 185.4 cm; Wt 84.4 kg
--- NOTE | 2019-02-15 13:58 | NUR ---
PATIENT TO ER ROOM 1, CONNECTED TO BEDSIDE MARKETING COMMUNICATIONS LEADER,NIBP AND SPO2, AND DEFIB PADS. HEART RATE IN 150'S. DR MARTINEZ AT BEDSIDE FOR PATIENT EVAL. EKG IN PROGRESS. PATIENT DENIES C/O CHEST PAIN OR SOB AT THIS TIME. STATES HE FINISHED DIALYSIS TODAY AND WAS BEING TRANSPORTED TO HOME AND WAS SENT TO ER BY PRIVATE EMS FOR TACHYCARDIC. RESP EVEN AND UNLABORED. SKIN PALE AND DRY.
[2019-02-15] MEDS ORDERED: DILTIAZEM HCL VIAL 5 ML ONE (14:14)
[2019-02-15] MEDS ORDERED: DILTIAZEM HCL 5 MG/ML 5 ML VIAL IV ONE ×2 (14:28)
[2019-02-15] MEDS ORDERED: SODIUM CHLORIDE 0.9% 250ML 250 ML IV ONE (14:30)
[2019-02-15 14:31] LABS: BASOPHILS % 0.3 % (0.0-1.0); EOSINOPHILS # (AUTO) 0.2 (0.0-0.4); EOSINOPHILS % 2.1 % (0.0-6.0); HEMATOCRIT 25.6 % (38.2-49.6); HEMOGLOBIN 8.3 g/dL (14.0-18.0); LYMPHOCYTES # (AUTO) 1.1 (1.0-3.2); LYMPHOCYTES % 9.7 % (18.0-39.1); MEAN CORPUSCULAR HEMOGLOBIN 36.7 pg (28-32); MEAN CORPUSCULAR HGB CONC 32.4 g/dL (31-35); MEAN CORPUSCULAR VOLUME 113.3 fL (81-99); MONOCYTES % 8.4 % (4.4-11.3); NEUTROPHILS # (AUTO) 9.1 (2.1-6.9); NEUTROPHILS % 78.9 % (38.7-80.0); PLATELET COUNT 346 x10e3/uL (140-360); RED BLOOD COUNT 2.26 x10e6/uL (4.3-5.7); RED CELL DISTRIBUTION WIDTH 20.4 % (11.7-14.4)
[2019-02-15] MEDS ORDERED: SODIUM CHLORIDE 0.9% 250ML 250 ML ONE (14:32)
--- NOTE | 2019-02-15 14:33 | NUR ---
XRAY AT BEDSIDE FOR CXR.
[2019-02-15 14:36] LABS: INR 1.13; PARTIAL THROMBOPLASTIN TIME 28.6 seconds (23.8-35.5)
[2019-02-15 14:46] LABS: ALBUMIN 2.7 g/dL (3.5-5.0); ALBUMIN/GLOBULIN RATIO 0.6 (0.8-2.0); CALCIUM 9.1 mg/dL (8.4-10.2); CREATININE, SERUM 2.34 mg/dL (0.72-1.25); MAGNESIUM 2.2 MG/DL (1.3-2.1)
[2019-02-15 15:06] LABS: CREATINE KINASE MB 6.5 ng/mL (0-5.0); THYROID STIMULATING HORMONE 1.585 uIU/mL (0.350-4.940)
--- NOTE | 2019-02-15 15:30 | NUR ---
sanguineous drainage noted to iv site, clean dressing applied, dry and intact,tolerated well. site without redness,swelling or drainage at this time.
[2019-02-15] MEDS ORDERED: METOPROLOL TARTRATE 25 MG TAB PO ONE (15:45)
--- NOTE | 2019-02-15 16:01 | Diagnostic Imaging Report ---
EXAMINATION: CHEST SINGLE (PORTABLE) INDICATION: Atrial fibrillation. Shortness of breath. ^afib rvr ^[id number] ^[id number] COMPARISON: 11/01/2018 FINDINGS: LINES/TUBES: Stable position of right subclavian hemodialysis catheter. LUNGS: Mild interstitial edema and scattered atelectasis bilaterally. PLEURA: Likely small left pleural effusion. No pneumothorax. HEART AND MEDIASTINUM: Stable cardiomegaly. Pulmonary vascular congestion. BONES AND SOFT TISSUES: No acute findings. IMPRESSION: Cardiomegaly with pulmonary vascular congestion and likely small left pleural effusion. Follow-up imaging is indicated to document clearing. Signed by: Dr. Jim Marques M.D. on 02/15/2019 3:58 PM
== END 2019-02-15 17:30 | disposition home or self-care (01) ==
LOC: ER 13:53
DX: I48.92 Unspecified atrial flutter (principal); I12.0 Hypertensive chronic kidney disease with stage 5 chronic kidney disease or end stage renal disease; E11.22 Type 2 diabetes mellitus with diabetic chronic kidney disease; N18.6 End stage renal disease; Z99.2 Dependence on renal dialysis
CPT/HCPCS: 36415; 71045; 80053; 82550; 82553; 83735; 84443; 84484; 85025; 85610; 85730; 93005; 99284; J7050

== ENCOUNTER 2019-07-19 15:18 | Inpatient (IN) | payer MEDICARE, OTHER ==
[~2019-07-19] VITALS: Ht 185.4 cm; Wt 84.4 kg
--- OUTSIDE RECORDS SUMMARY | 2019-07-19 15:23 | XMS REPORT | Continuity of Care Document ---
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 Name Role Phone Conergy Information Exchange Unavailable Unavailable Problems Problem Status Onset Date Classification Date Reported Comments Source End-stage renal disease Active Problem 02/15/2019 [facility] Fracture of left femur Active Problem 02/15/2019 [facility] Fever Active Problem 02/15/2019 [facility] Leukocytosis Active Problem 02/15/2019 [facility] Pneumonia Active Problem 02/15/2019 [facility] Pulmonary edema Active Problem 02/15/2019 [facility] Medications Medication Details Route Status Patient Instructions Ordering Provider Order Date Source Ascorbic Acid (Vitamin C) 500 Mg Tablet, 1 Tab Oral Daily Active 12/18/2018 [facility] Coq 10 , 100 Mg Oral Daily Active 12/18/2018 [facility] Fexofenadine Hcl 180 Mg Tablet, 180 Mg Oral Daily for Allergy Active 12/18/2018 [facility] Hydroxyzine Hcl 25 Mg Tablet, 25 Mg Oral Daily as needed for Itching Active 12/18/2018 [facility] Lactobacillus Acidophilus (Acidophilus) 1 Each Tab.chew, Oral Three Times Daily With Meals Active 12/18/2018 [facility] Tramadol Hcl (Ultram) 50 Mg Tablet, 50 Mg Oral Every 6 Hours as needed for Pain Active 12/18/2018 [facility] Cephalexin Monohydrate (Keflex) 500 Mg Capsule, 500 Mg Oral Twice A Day Active 11/01/2018 [facility] Ciprofloxacin Hcl (Cipro) 500 Mg Tablet, 500 Mg Oral Q24h Active 11/01/2018 [facility] Clindamycin Hcl 150 Mg Capsule, Mg Three Times A Day Active 11/01/2018 [facility] Doxepin Hcl 25 Mg Capsule, 10 Mg Oral Bedtime Active 11/01/2018 [facility] Eliquis , 2.5 Mg Oral Every 12 Hours Active 11/01/2018 [facility] Hydralazine Hcl 25 Mg Tab, 100 Mg Oral Three Times A Day Active 11/01/2018 [facility] Isosorbide Dinitrate 20 Mg Tablet, 20 Mg Oral Twice A Day Active 11/01/2018 [facility] Levodopa , Oral Three Times A Day Active 11/01/2018 [facility] Meclizine Hcl 12.5 Mg Tablet, 25 Mg Oral As Needed Active 11/01/2018 [facility] Nifedipine (Nifedipine Xl) 30 Mg Tab.er.24, 60 Mg Oral Daily Active 11/01/2018 [facility] Nystatin 15 Gm Powder, 15 Gm Topical Three Times A Day Active 11/01/2018 [facility] Nystatin (Nystop) 60 Gm Powder, 355911 Active 11/01/2018 [facility] Primidone 50 Mg Tablet, 50 Mg Oral 2 @ 1700 Active 11/01/2018 [facility] Ropinirole Hcl , Active 11/01/2018 [facility] Zinc Oxide 56.7 Gm Oint...g., Topical As Needed Active 11/01/2018 [facility] Amiodarone Hcl 200 Mg Tablet, 200 Mg Oral Daily Active 08/17/2018 [facility] Carvedilol 12.5 Mg Tablet, 12.5 Mg Oral Twice A Day Active 08/17/2018 [facility] Clonidine Hcl 0.1 Mg Tablet, 1 Tab Oral Three Times A Day Active 08/17/2018 [facility] Digoxin 125 Mcg Tablet, 0.125 Mg Oral Every 48H Active 08/17/2018 [facility] Gabapentin 100 Mg Capsule, 100 Mg Oral Three Times A Day Active 08/17/2018 [facility] Metoprolol Tartrate 25 Mg Tablet, 25 Mg Oral Three Times A Day Active 08/16/2018 [facility] Sevelamer Hcl (Renagel) 800 Mg Tablet, 800 Mg Oral Three Times A Day Active 08/16/2018 [facility] Ascorbic Acid (Vitamin C) 500 Mg Capsule.er, 500 Mg Oral Daily Active 09/08/2017 [facility] Aspirin 81 Mg Tab.chew, 81 Mg Oral Daily Active 09/08/2017 [facility] Bisacodyl (Dulcolax) 10 Mg Supp.rect, 10 Mg Rectal Bedtime Active 09/08/2017 [facility] Cholecalciferol (Vitamin D3) (Vitamin D-3) 2,000 Unit Capsule, 1.5 Mg Oral 1 1200 Tuesday Active 09/08/2017 [facility] Cinnamon Bark (Cinnamon) 500 Mg Capsule, 1000 Mg Oral At 1200 Active 09/08/2017 [facility] Clonidine Hcl 0.1 Mg Tablet, 0.1 Mg Oral At 0800 1700 2200 Active 09/08/2017 [facility] Clopidogrel Bisulfate (Plavix) 75 Mg Tablet, 75 Mg Oral Use As Directed Active 09/08/2017 [facility] Coq10 , 100 Mg Oral Active 09/08/2017 [facility] Ferrous Sulfate 325 Mg Tablet, 325 Mg Oral Today At 8:00AM, 5:00PM, And 10:00PM Active 09/08/2017 [facility] Flaxseed (Flaxseed Oil) 1,000 Mg Capsule, 1000 Mg Oral Today At 12:00PM Active 09/08/2017 [facility] Flourouracil 5% Cr , 1 Applic Topically As Needed Active 09/08/2017 [facility] Flourouracil 5% Cr , Topically as needed for Prn Active 09/08/2017 [facility] Folic Acid/Vitamin B Comp W-C (Dialyvite Tablet) 1 Each Tablet, 1 Tab Oral Daily Active 09/08/2017 [facility] Furosemide 20 Mg Tablet, 40 Mg Oral 2 @ 0800 1 @ 1200 Active 09/08/2017 [facility] Hydralazine Hcl 100 Mg Tablet, 100 Mg Oral At 0800 1200 1700 Active 09/08/2017 [facility] Insulin Glargine (Lantus) 100 Units/Ml Ml, 25-30 Units Subcutaneously Bedtime Active 09/08/2017 [facility] Lactulose 20 Gm/30 Ml Solution, 30 Ml Oral Three Times A Day as needed for Constipation Active 09/08/2017 [facility] Metoprolol Tartrate 50 Mg Tablet, 50 Mg Oral At 0800 1700 Active 09/08/2017 [facility] Minoxidil 2.5 Mg Tablet, 2.5 Mg Oral At 0800 1700 Active 09/08/2017 [facility] Multivitamin W-Minerals/Lutein (Centrum Silver Tablet) 1 Each Tablet, 1 Tab Oral Daily Active 09/08/2017 [facility] [place]-3 Fatty Acids/Fish Oil ([place] 3 Fish Oil Softgel) 1 Each Capsule., 1 Tab Oral Daily Active 09/08/2017 [facility] Pantoprazole Sodium (Protonix) 40 Mg Tablet., 40 Mg Oral At 0800 Active 09/08/2017 [facility] Polyethylene Glycol 3350 (Miralax) 17 Gm Powd.pack, 17 Gm Oral Daily Active 09/08/2017 [facility] Psyllium Seed (Metamucil) 1 Each Packet, Daily as needed Active 09/08/2017 [facility] Ubidecarenone (Coq-10) 100 Mg Capsule, 100 Mg Oral Daily Active 09/08/2017 [facility] Gabapentin 300 Mg Capsule, 100 Mg Oral Twice A Day Active 07/07/2017 [facility] Allopurinol 100 Mg Tablet, 100 Mg Oral Daily Active 06/25/2015 [facility] Clopidogrel Bisulfate (Plavix) 75 Mg Tablet, 75 Mg Oral Every Other Day Active 06/25/2015 [facility] Insulin Detemir (Levemir) 100 Unit/1 Ml Vial, 25 Units Sub-Q Bedtime Active 06/25/2015 [facility] Hydrocodone Bit/Acetaminophen (Hydrocodon-Acetaminophn 10-325) 1 Each Tablet, 1 Tab Oral Prn Pain Active 10/19/2013 [facility] Glipizide 10 Mg Tablet, 10 Mg Oral Daily Active 08/30/2013 [facility] Nifedipine (Nifedipine Xl) 30 Mg Tab.er.24, 60 Mg Oral Every 12 Hours Active 08/30/2013 [facility] Acarbose 100 Mg Tablet, 100 Mg Oral Three Times Daily With Meals Active 07/27/2013 [facility] Clonidine Hcl 0.2 Mg Tablet, 0.2 Mg Oral Every 8 Hours Active 07/27/2013 [facility] Clopidogrel Bisulfate (Plavix) 300 Mg Tablet, 75 Mg Oral Every Other Day Active 07/27/2013 [facility] Diclofenac Sodium (Voltaren) 100 Gm Gel..gram., Topically Active 07/27/2013 [facility] Glyburide 5 Mg Tablet, 5 Mg Oral Twice A Day Active 07/27/2013 [facility] Insulin Glargine,Hum.rec.anlog (Lantus) 100 Unit/1 Ml Cartridge, 25 Units Sub-Q Bedtime Active 07/27/2013 [facility] Lisinopril 5 Mg Tablet, 5 Mg Oral Daily Active 07/27/2013 [facility] Amiodarone Hcl 200 Mg Tablet, 200 Mg Oral Tuesday Active 06/14/2013 [facility] Clonidine (Catapres-Tts 2) 1 Each Patch.tdwk, 0.2 Mg Oral Every 8 Hours Active 06/14/2013 [facility] Diltiazem Hcl (Diltiazem Er) 240 Mg Cap.er.deg, 240 Mg Oral Bedtime Active 06/14/2013 [facility] Ascorbic Acid (Vitamin C) 500 Mg Tablet Daily Active [facility] Aspirin (Aspirin Ec) 81 Mg Tablet.dr Daily Active [facility] Atorvastatin Calcium 20 Mg Tablet Bedtime Active [facility] Calcitriol 0.25 Mcg Capsule Daily Active [facility] Clopidogrel Bisulfate (Plavix) 75 Mg Tablet Daily Active [facility] Eliquis Twice A Day Active [facility] Ergocalciferol (Vitamin D2) (Vitamin D2) 50,000 Unit Capsule Use As Directed Active PATIENT TAKES ONCE PER WEEK [facility] Flaxseed (Flaxseed Oil) 1,000 Mg Capsule Daily Active [facility] Insulin Detemir (Levemir) 100 Unit/1 Ml Vial Twice A Day Active [facility] Lactobacillus Cmb#7/Fos/Inulin (Probiotic Complex Tablet) 1 Each Tablet Three Times A Day Active [facility] Metoprolol Tartrate 50 Mg Tablet Twice A Day Active [facility] Miralax As Needed for Constipation Active [facility] Nitroglycerin 0.4 Mg Tab.subl Every 5 Minutes as needed for Chest Pain Active [facility] Pantoprazole Sodium (Protonix) 40 Mg Tablet. Daily Active [facility] Primidone 50 Mg Tablet Twice A Day Active [facility] Sevelamer Carbonate 800 Three Times A Day Active [facility] Ubidecarenone (Coq-10) 100 Mg Capsule Daily Active [facility] Allergies, Adverse Reactions, Alerts No Known Medication Allergies Immunizations No Data Provided for This Section Results Order Name Results Value Reference Range Date Interpretation Comments Source Blood leukocytes automated count (number/volume) 11.52 4.8 - 10.8 02/15/2019 [facility] Blood erythrocytes automated count (number/volume) 2.26 4.3 - 5.7 02/15/2019 [facility] Blood hemoglobin measurement (moles/volume) 8.3 14.0 - 18.0 02/15/2019 [facility] Automated blood hematocrit (volume fraction) 25.6 38.2 - 49.6 02/15/2019 [facility] Automated erythrocyte mean corpuscular volume 113.3 81 - 99 02/15/2019 [facility] Automated erythrocyte mean corpuscular hemoglobin (mass per erythrocyte) 36.7 28 - 32 02/15/2019 [facility] Automated erythrocyte mean corpuscular hemoglobin concentration measurement (mass/volume) 32.4 31 - 35 02/15/2019 [facility] RDW BldCo-Rto 20.4 11.7 - 14.4 02/15/2019 [facility] Automated blood platelet count (count/volume) 346 140 - 360 02/15/2019 [facility] Automated blood segmented neutrophil count as percentage of total leukocytes 78.9 38.7 - 80.0 02/15/2019 [facility] Automated blood lymphocyte count as percentage ot total leukocytes 9.7 18.0 - 39.1 02/15/2019 [facility] Automated blood monocyte count as percentage of total leukocytes 8.4 4.4 - 11.3 02/15/2019 [facility] Automated blood eosinophil count as percentage of total leukocytes 2.1 0.0 - 6.0 02/15/2019 [facility] Automated blood basophil count as percentage of total leukocytes 0.3 0.0 - 1.0 02/15/2019 [facility] IM GRANULOCYTES % 0.6 0.0 - 1.0 02/15/2019 [facility] Automated blood neutrophil count 9.1 2.1 - 6.9 02/15/2019 [facility] Blood lymphocytes count (number/volume) 1.1 1.0 - 3.2 02/15/2019 [facility] Blood monocytes automated count (number/volume) 1.0 0.2 - 0.8 02/15/2019 [facility] Automated blood eosinophil count 0.2 0.0 - 0.4 02/15/2019 [facility] Automated blood basophil count (count/volume) 0.0 0.0 - 0.1 02/15/2019 [facility] Absolute Immature Granulocyte (auto 0.07 0 - 0.1 02/15/2019 [facility] Prothrombin time (PT) in platelet poor plasma by coagulation assay 15.0 11.9 - 14.5 02/15/2019 [facility] INR in Platelet poor plasma by Coagulation assay 1.13 02/15/2019 [facility] Activated partial thromboplastin time (aPTT) in platelet poor plasma bycoagulation assay 28.6 23.8 - 35.5 02/15/2019 [facility] Serum or plasma sodium measurement (moles/volume) 133 136 - 145 02/15/2019 [facility] Serum or plasma potassium measurement (moles/volume) 4.0 3.5 - 5.1 02/15/2019 [facility] Serum or plasma chloride measurement (moles/volume) 96 98 - 107 02/15/2019 [facility] Serum or plasma carbon dioxide, total measurement (moles/volume) 25 22 - 29 02/15/2019 [facility] Serum or plasma anion gap 16.0 8 - 16 02/15/2019 [facility] Serum or plasma urea nitrogen measurement (mass/volume) 23 7 - 26 02/15/2019 [facility] Serum or plasma creatinine measurement (mass/volume) 2.34 0.72 - 1.25 02/15/2019 [facility] Serum or plasma urea nitrogen/creatinine mass ratio 10 6 - 25 02/15/2019 [facility] Estimated glomerular filtration rate (GFR) determination 27 60 02/15/2019 [facility] Glucose measurement 129 74 - 118 02/15/2019 [facility] Serum or plasma calcium measurement (mass/volume) 9.1 8.4 - 10.2 02/15/2019 [facility] Serum or plasma magnesium measurement (mass/volume) 2.2 1.3 - 2.1 02/15/2019 [facility] Serum or plasma total bilirubin measurement (mass/volume) 1.0 0.2 - 1.2 02/15/2019 [facility] Aspartate Amino Transf (AST/SGOT) 23 5 - 34 02/15/2019 [facility] Serum or plasma alanine aminotransferase measurement (enzymatic activity/volume) 14 0 - 55 02/15/2019 [facility] Serum or plasma protein measurement (mass/volume) 7.6 6.5 - 8.1 02/15/2019 [facility] Serum or plasma albumin measurement (mass/volume) 2.7 3.5 - 5.0 02/15/2019 [facility] Plasma globulin measurement (mass/volume) 4.9 2.3 - 3.5 02/15/2019 [facility] Serum or plasma albumin/globulin mass ratio 0.6 0.8 - 2.0 02/15/2019 [facility] Serum or plasma alkaline phosphatase measurement (enzymatic activity/volume) 239 40 - 150 02/15/2019 [facility] Serum or plasma creatine kinase measurement (enzymatic activity/volume) 59 30 - 200 02/15/2019 [facility] Serum or plasma creatine kinase MB measurement (mass/volume) 6.50 0 - 5.0 02/15/2019 [facility] Troponin I measurement by highly sensitive enzyme immunoassay 0.157 0 - 0.300 02/15/2019 [facility] Serum or plasma thyrotropin measurement by detection limit <=0.005 miu/l (units/volume) 1.585 0.350 - 4.940 02/15/2019 [facility] Capillary blood glucose measurement by glucometer (mass/volume) 166 70 - 120 02/01/2019 [facility] Differential Total Cells Counted 100 02/01/2019 [facility] Manual blood neutrophils/100 leukocytes 78 40 - 74 02/01/2019 [facility] Manual blood lymphocytes/100 leukocytes 9 19 - 48 02/01/2019 [facility] Manual blood monocytes/100 leukocytes 13 3.4 - 9.0 02/01/2019 [facility] Blood platelets count by estimate (number/volume) ADEQUATE 02/01/2019 [facility] Platelet morphology NORMAL 02/01/2019 [facility] Blood hypochromia detection by light microscopy SLIGHT 02/01/2019 [facility] RBC morphology NORMAL 02/01/2019 [facility] Serum hepatitis B virus surface antibody assay by radioimmunoassay (units/volume) 20.7 Immunity>9.9 01/29/2019 [facility] Serum or plasma hepatitis B virus core antibody detection by immunoassay Negative Negative 01/29/2019 [facility] Serum or plasma hepatitis B virus surface antigen detection by immunoassay Negative Negative 01/29/2019 [facility] Manual blood eosinophil count as percentage of total leukocytes 1 0 - 7 01/29/2019 [facility] Blood lymphocytes variant count (number/volume) 1 01/29/2019 [facility] Activated clotting time at point of care 184 12/20/2018 [facility] Serum or plasma triglyceride measurement (mass/volume) 56 0 - 149 12/18/2018 [facility] Serum or plasma cholesterol measurement (mass/volume) 51 0 - 199 12/18/2018 [facility] Serum or plasma cholesterol in LDL measurement (mass/volume) 3 60 - 130 12/18/2018 [facility] Serum or plasma cholesterol in HDL measurement (mass/volume) 37 40 - 60 12/18/2018 [facility] Serum or plasma total cholesterol/cholesterol in HDL mass ratio 1.4 3.9 - 4.7 12/18/2018 [facility] Urine color determination YELLOW YELLOW 11/01/2018 [facility] Urine clarity CLEAR CLEAR 11/01/2018 [facility] Specific gravity of Urine by Test strip 1.020 1.010 - 1.025 11/01/2018 [facility] Urine pH measurement by automated test strip 7 5 - 7 11/01/2018 [facility] Urine leukocyte esterase detection by dipstick NEGATIVE NEGATIVE 11/01/2018 [facility] Urine nitrite detection NEGATIVE NEGATIVE 11/01/2018 [facility] Urine protein measurement by test strip (mass/volume) 2+ NEGATIVE 11/01/2018 [facility] Urine glucose detection NEGATIVE NEGATIVE 11/01/2018 [facility] Urine ketones detection by automated test strip NEGATIVE NEGATIVE 11/01/2018 [facility] Urine urobilinogen measurement by test strip (mass/volume) 0.2 0.2 - 1 11/01/2018 [facility] Urine total bilirubin measurement (mass/volume) NEGATIVE NEGATIVE 11/01/2018 [facility] Urine erythrocytes detection NEGATIVE NEGATIVE 11/01/2018 [facility] Automated urine sediment leukocyte count by microscopy (number/high power field) 0-5 0 - 5 11/01/2018 [facility] Erythrocytes detection in urine sediment by light microscopy NONE 0 - 5 11/01/2018 [facility] Bacteria detection in urine sediment by light microscopy RARE NONE 11/01/2018 [facility] Epithelial cells detection in urine sediment by light microscopy RARE NONE 11/01/2018 [facility] Phosphorus measurement 5.5 2.3 - 4.7 08/22/2018 [facility] Serum or plasma hepatitis B virus core IgM antibody detection by immunoassay Negative Negative 08/17/2018 [facility] Pathology Reports No Data Provided for This Section Diagnostic Reports No Data Provided for This Section Consultation Notes No Data Provided for This Section Discharge Summaries No Data Provided for This Section History and Physicals No Data Provided for This Section Vital Signs No Data Provided for This Section Encounters Location Location Details Encounter Type Encounter Number Reason For Visit Attending Provider ADM Date DC Date Status Source Discharged Inpatient [id number] OSCAR DEVLIN MD 08/16/2018 08/22/2018 [facility] Discharged Inpatient (obs) [id number] KISHOR HOLLAND MD 09/06/2018 09/06/2018 [facility] Departed Emergency Room [id number] ELKE STEPHENS MD 10/17/2018 10/18/2018 [facility] Discharged Inpatient [id number] OSCAR DEVLIN MD 11/02/2018 11/07/2018 [facility] Registered Surgical Day Care [id number] KISHOR HOLLAND MD 12/20/2018 [facility] Discharged Inpatient [id number] KISHOR HOLLAND MD 01/29/2019 02/01/2019 [facility] Departed Emergency Room [id number] CHANO WALLACE MD 02/06/2019 02/06/2019 [facility] Departed Emergency Room [id number] RENETTA MARTINEZ MD 02/15/2019 02/15/2019 [facility] Procedures Procedure Code Date Perfomer Comments Source EXTIRPATION OF MATTER FROM R FEM ART, PERC APPROACH [id number] 01/29/2019 [facility] DILATION OF R FEM ART WITH INTRALUM DEV, PERC APPROACH [id number] 01/29/2019 [facility] FLUOROSCOPY OF R LOW EXTREM ART USING L OSM CONTRAST [id number] 01/29/2019 [facility] FLUOROSCOPY OF ABDOMINAL AORTA USING LOW OSMOLAR CONTRAST [id number] 01/29/2019 [facility] ENDOLUMINL IVUS OCT C 1ST [id number] 12/20/2018 [facility] L HRT ARTERY/VENTRICLE ANGIO [id number] 12/20/2018 [facility] REPOSITION LEFT UPPER FEMUR WITH INTRAMED FIX, PERC APPROACH [id number] 11/02/2018 [facility] Computed tomography of lumbar spine without contrast [id number] 11/01/2018 [facility] Computed tomography of pelvis without contrast [id number] 11/01/2018 [facility] Computed tomography of brain without radiopaque contrast [id number] 10/18/2018 [facility] Computed tomography of cervical spine without contrast [id number] 10/18/2018 [facility] Computed tomography of chest without contrast [id number] 10/18/[address] [facility] [address] of abdomen and pelvis without contrast [id number] 10/18/2018 [facility] FEM/POPL REVAS W/ATHER [id number] 09/06/2018 [facility] DILATION OF RIGHT COMMON ILIAC ARTERY, PERCUTANEOUS APPROACH [id number] 08/18/2018 [facility] DILATION OF L COM ILIAC ART WITH INTRALUM DEV, PERC APPROACH [id number] 08/18/2018 [facility] PERFORMANCE OF URINARY FILTRATION, <6 HRS/DAY [id number] 08/17/2018 [facility] Assessment and Plan No Data Provided for This Section Plan of Care Plan of Care Date Source Discharge Date 02/15/19 5:30pm Disposition HOME, SELF-CARE Condition at Discharge Stable Instructions/Education Provided Atrial Fibrillation Forms Provided Work/School Excuse Prescriptions See Medication Section Referrals KISHOR MORE MD Address: [address] [place] [id number] Additional Instructions/Education TAKE HOME MEDICAITONS PRESCRIBED. FOLLOW UP WITH DR WEST. 02/15/2019 [facility] Social History Social History Date Source Social History Problem Response Recorded Date/Time Onset Date Status Hx Psychiatric Problems No 12/15/2017 8:10pm Not Applicable Not Applicable Hx Eating Disorder No 12/15/2017 8:10pm Not Applicable Not Applicable Hx Substance Use Disorder No 01/26/2019 10:12am Not Applicable Not Applicable Hx Depression No 12/15/2017 8:10pm Not Applicable Not Applicable Hx Alcohol Use No 01/26/2019 10:12am Not Applicable Not Applicable Hx Substance Use Treatment No 12/15/2017 8:10pm Not Applicable Not Applicable Hx Physical Abuse No 12/15/2017 8:10pm Not Applicable Not Applicable Smoking Status Start Date Stop Date Former smoker 02/15/2019 [facility] Family History No Data Provided for This Section Advance Directives Order Name Results Value Date Source Advance Directives Advance Directives Directive Response Recorded Date/Time Does the patient have an advance directive? No 02/06/19 2:27pm Do you have a Directive to Physician? No 02/15/19 2:27pm Do you have a Medical Power of Spray Gun Striper? No 02/15/19 2:27pm Do you have an out of hospital Do Not Resuscitate Order? No 02/15/19 2:27pm Do you have any special needs we should be aware of? No 02/15/19 2:27pm Do you have a support person here with you today? No 02/15/19 2:27pm Did patient receive Notice of Privacy Practices? Yes 02/15/19 2:27pm Did patient receive patient rights and responsibilities? Yes 02/15/19 2:27pm 02/15/2019 [facility] Functional Status No Data Provided for This Section
[2019-07-19 16:31] LABS: BASOPHILS # (AUTO) 0.1 (0.0-0.1); BASOPHILS % 0.4 % (0.0-1.0); EOSINOPHILS # (AUTO) 0.6 (0.0-0.4); EOSINOPHILS % 2.9 % (0.0-6.0); HEMATOCRIT 29.5 % (38.2-49.6); HEMOGLOBIN 9.4 g/dL (14.0-18.0); LYMPHOCYTES % 4.6 % (18.0-39.1); MEAN CORPUSCULAR HEMOGLOBIN 33.5 pg (28-32); MEAN CORPUSCULAR HGB CONC 31.9 g/dL (31-35); MONOCYTES # (AUTO) 1.6 (0.2-0.8); MONOCYTES % 7.3 % (4.4-11.3); NEUTROPHILS % 83.7 % (38.7-80.0); PLATELET COUNT 532 x10e3/uL (140-360); RED BLOOD COUNT 2.81 x10e6/uL (4.3-5.7); RED CELL DISTRIBUTION WIDTH 20.5 % (11.7-14.4)
[2019-07-19 16:42] LABS: INR 1.14; PROTHROMBIN TIME 15.2 seconds (11.9-14.5)
[2019-07-19 16:43] LABS: PARTIAL THROMBOPLASTIN TIME 37.9 seconds (23.8-35.5)
[2019-07-19 16:51] LABS: ALBUMIN/GLOBULIN RATIO 0.3 (0.8-2.0); ANION GAP 14.6 mmol/L (8-16); CALCIUM 9.7 mg/dL (8.4-10.2); CREATININE, SERUM 2.07 mg/dL (0.72-1.25); MAGNESIUM 2.2 MG/DL (1.3-2.1); POTASSIUM 3.6 mmol/L (3.5-5.1)
[2019-07-19 16:58] LABS: CREATINE KINASE MB 3.8 ng/mL (0-5.0)
--- NOTE | 2019-07-19 17:25 | NUR ---
JESSE JUDD AT BEDSIDE FOR PT RE-EVAL, UPDATING ON PLAN OF CARE AND INTENT OF ADMISSION AT THIS TIME.
--- NOTE | 2019-07-19 17:27 | Diagnostic Imaging Report ---
EXAMINATION: CHEST SINGLE (PORTABLE) INDICATION: Hypotension COMPARISON: Chest radiograph of 02/15/2019 FINDINGS: LINES/TUBES:Right-sided tunneled dialysis catheter terminates in the right atrium. Interval placement of left AICD with leads at the right atrium and right ventricle. EKG leads overlie the chest. LUNGS:The lungs are moderately inflated. There is perihilar fullness and indistinctness of the pulmonary vasculature. PLEURA:Likely trace left pleural effusion. No pneumothorax. MEDIASTINUM:The cardiomediastinal silhouette is enlarged. BONES/SOFT TISSUES:No acute osseous injury. ABDOMEN:No free air under the diaphragm. IMPRESSION: Pulmonary edema. Cardiomegaly. Interval placement of left chest AICD. Signed by: Evin Aleman MD on 07/19/2019 5:23 PM
[2019-07-19 17:33] LABS: B-TYPE NATRIURETIC PEPTIDE2 3003.3 pg/mL (0-100)
[2019-07-19 17:47] LABS: BILIRUBIN,URINE SMALL (NEGATIVE); CLARITY,URINE TURBID (CLEAR); COLOR,URINE BROWN (YELLOW); KETONES,URINE NEGATIVE (NEGATIVE); LEUKOCYTE ESTERASE ,URINE LARGE (NEGATIVE); NITRITE,URINE POSITIVE (NEGATIVE); PROTEIN,URINE DIPSTICK 2+ (NEGATIVE); URINE UROBILINOGEN 0.2 mg/dL (0.2 - 1)
[2019-07-19 17:58] LABS: BACTERIA,URINE MODERATE /HPF; WBC,URINE (MAN) >50 /HPF (0-5)
[2019-07-19] MEDS ORDERED: MEROPENEM 1GRAM 1 GM in SODIUM CHLORIDE 0.9% 100 ML 100 ML IV SCH (18:45)
--- NOTE | 2019-07-19 18:49 | Diagnostic Imaging Report ---
History:AMS, posterior head pressure Comparison studies:CT head 10/18/2018 Technique: Axial images were obtained from the skull base to the vertex. Coronal and sagittal images reconstructed from the axial data. Intravenous contrast: None Dose modulation, iterative reconstruction, and/or weight based adjustment of the mA/kV was utilized to reduce the radiation dose to as low as reasonably achievable. Findings: Scalp/skull: No abnormalities. Extra-axial spaces: No masses. No fluid collections. Brain sulci: Mildly prominent. Ventricles: Moderate compensatory dilatation. No hydrocephalus. Parenchyma: Confluent hypodensities in the supratentorial white matter are small vessel ischemic changes. Hypodensity at the right anterior internal capsule, related to chronic lacunar infarct. No masses, hemorrhage, acute or chronic cortical vascular insults. Sellar/suprasellar region: No abnormalities. Craniocervical junction: Patent foramen magnum. No Chiari one malformation. Incidental findings: Atherosclerotic calcifications in the carotid siphons and vertebral arteries . Opacification of the bilateral cement finisher helper cells without significant nasopharyngeal mass. Impression: No acute intracranial abnormality. Chronic findings: 1. Mild generalized volume loss. 2. Moderate to severe supratentorial white matter small vessel ischemic changes. Signed by: DR Juan Alberto Lamb M.D. on 07/19/2019 6:46 PM
[2019-07-19] MEDS ORDERED: ONDANSETRON HCL INJ 2MG/ML 2ML 2 MG/ML VIAL IV PRN (19:15)
[2019-07-19] MEDS ORDERED: SODIUM CHLORIDE 0.9% 1000ML 1,000 ML IV ONE (19:15)
--- OUTSIDE RECORDS SUMMARY | 2019-07-19 19:25 | XMS REPORT | Continuity of Care Document ---
Author Author [facility] Address Unknown Phone Unavailable Care Team Providers Care Home Therapy Clinician Name Role Phone [employer] Information Exchange Unavailable Unavailable Problems Problem Status Onset Date Classification Date Reported Comments Source End-stage renal disease Active Problem 02/15/2019 [facility] Fracture of left femur Active Problem 02/15/2019 [facility] Fever Active Problem 02/15/2019 [facility] Leukocytosis Active Problem 02/15/2019 [facility] Pneumonia Active Problem 02/15/2019 [facility] Pulmonary edema Active Problem 02/15/2019 [facility] Medications Medication Details Route Status Patient Instructions Ordering Provider Order Date Source Ascorbic Acid (Vitamin C) 500 Mg Tablet, 1 Tab Oral Daily Active 12/18/2018 [facility] Coq 10 , 100 Mg Oral Daily Active 12/18/2018 [facility] Fexofenadine Hcl 180 Mg Tablet, 180 Mg Oral Daily for Allergy Active 12/18/2018 [facility] Hydroxyzine Hcl 25 Mg Tablet, 25 Mg Oral Daily as needed for Itching Active 12/18/2018 [facility] Lactobacillus Acidophilus (Acidophilus) 1 Each Tab.chew, Oral Three Times Daily With Meals Active 12/18/2018 [facility] Tramadol Hcl (Ultram) 50 Mg Tablet, 50 Mg Oral Every 6 Hours as needed for Pain Active 12/18/2018 [facility] Cephalexin Monohydrate (Keflex) 500 Mg Capsule, 500 Mg Oral Twice A Day Active 11/01/2018 [facility] Ciprofloxacin Hcl (Cipro) 500 Mg Tablet, 500 Mg Oral Q24h Active 11/01/2018 [facility] Clindamycin Hcl 150 Mg Capsule, Mg Three Times A Day Active 11/01/2018 [facility] Doxepin Hcl 25 Mg Capsule, 10 Mg Oral Bedtime Active 11/01/2018 [facility] Eliquis , 2.5 Mg Oral Every 12 Hours Active 11/01/2018 [facility] Hydralazine Hcl 25 Mg Tab, 100 Mg Oral Three Times A Day Active 11/01/2018 [facility] Isosorbide Dinitrate 20 Mg Tablet, 20 Mg Oral Twice A Day Active 11/01/2018 [facility] Levodopa , Oral Three Times A Day Active 11/01/2018 [facility] Meclizine Hcl 12.5 Mg Tablet, 25 Mg Oral As Needed Active 11/01/2018 [facility] Nifedipine (Nifedipine Xl) 30 Mg Tab.er.24, 60 Mg Oral Daily Active 11/01/2018 [facility] Nystatin 15 Gm Powder, 15 Gm Topical Three Times A Day Active 11/01/2018 [facility] Nystatin (Nystop) 60 Gm Powder, [id number] Active 11/01/2018 [facility] Primidone 50 Mg Tablet, 50 Mg Oral 2 @ 1700 Active 11/01/2018 [facility] Ropinirole Hcl , Active 11/01/2018 [facility] Zinc Oxide 56.7 Gm Oint...g., Topical As Needed Active 11/01/2018 [facility] Amiodarone Hcl 200 Mg Tablet, 200 Mg Oral Daily Active 08/17/2018 [facility] Carvedilol 12.5 Mg Tablet, 12.5 Mg Oral Twice A Day Active 08/17/2018 [facility] Clonidine Hcl 0.1 Mg Tablet, 1 Tab Oral Three Times A Day Active 08/17/2018 [facility] Digoxin 125 Mcg Tablet, 0.125 Mg Oral Every 48H Active 08/17/2018 [facility] Gabapentin 100 Mg Capsule, 100 Mg Oral Three Times A Day Active 08/17/2018 [facility] Metoprolol Tartrate 25 Mg Tablet, 25 Mg Oral Three Times A Day Active 08/16/2018 [facility] Sevelamer Hcl (Renagel) 800 Mg Tablet, 800 Mg Oral Three Times A Day Active 08/16/2018 [facility] Ascorbic Acid (Vitamin C) 500 Mg Capsule.er, 500 Mg Oral Daily Active 09/08/2017 [facility] Aspirin 81 Mg Tab.chew, 81 Mg Oral Daily Active 09/08/2017 [facility] Bisacodyl (Dulcolax) 10 Mg Supp.rect, 10 Mg Rectal Bedtime Active 09/08/2017 [facility] Cholecalciferol (Vitamin D3) (Vitamin D-3) 2,000 Unit Capsule, 1.5 Mg Oral 1 1200 Tuesday Active 09/08/2017 [facility] Cinnamon Bark (Cinnamon) 500 Mg Capsule, 1000 Mg Oral At 1200 Active 09/08/2017 [facility] Clonidine Hcl 0.1 Mg Tablet, 0.1 Mg Oral At 0800 1700 2200 Active 09/08/2017 [facility] Clopidogrel Bisulfate (Plavix) 75 Mg Tablet, 75 Mg Oral Use As Directed Active 09/08/2017 [facility] Coq10 , 100 Mg Oral Active 09/08/2017 [facility] Ferrous Sulfate 325 Mg Tablet, 325 Mg Oral Today At 8:00AM, 5:00PM, And 10:00PM Active 09/08/2017 [facility] Flaxseed (Flaxseed Oil) 1,000 Mg Capsule, 1000 Mg Oral Today At 12:00PM Active 09/08/2017 [facility] Flourouracil 5% Cr , 1 Applic Topically As Needed Active 09/08/2017 [facility] Flourouracil 5% Cr , Topically as needed for Prn Active 09/08/2017 [facility] Folic Acid/Vitamin B Comp W-C (Dialyvite Tablet) 1 Each Tablet, 1 Tab Oral Daily Active 09/08/2017 [facility] Furosemide 20 Mg Tablet, 40 Mg Oral 2 @ 0800 1 @ 1200 Active 09/08/2017 [facility] Hydralazine Hcl 100 Mg Tablet, 100 Mg Oral At 0800 1200 1700 Active 09/08/2017 [facility] Insulin Glargine (Lantus) 100 Units/Ml Ml, 25-30 Units Subcutaneously Bedtime Active 09/08/2017 [facility] Lactulose 20 Gm/30 Ml Solution, 30 Ml Oral Three Times A Day as needed for Constipation Active 09/08/2017 [facility] Metoprolol Tartrate 50 Mg Tablet, 50 Mg Oral At 0800 1700 Active 09/08/2017 [facility] Minoxidil 2.5 Mg Tablet, 2.5 Mg Oral At 0800 1700 Active 09/08/2017 [facility] Multivitamin W-Minerals/Lutein (Centrum Silver Tablet) 1 Each Tablet, 1 Tab Oral Daily Active 09/08/2017 [facility] Romney-3 Fatty Acids/Fish Oil (Romney 3 Fish Oil Softgel) 1 Each Capsule., 1 Tab Oral Daily Active 09/08/2017 [facility] Pantoprazole Sodium (Protonix) 40 Mg Tablet., 40 Mg Oral At 0800 Active 09/08/2017 [facility] Polyethylene Glycol 3350 (Miralax) 17 Gm Powd.pack, 17 Gm Oral Daily Active 09/08/2017 [facility] Psyllium Seed (Metamucil) 1 Each Packet, Daily as needed Active 09/08/2017 [facility] Ubidecarenone (Coq-10) 100 Mg Capsule, 100 Mg Oral Daily Active 09/08/2017 [facility] Gabapentin 300 Mg Capsule, 100 Mg Oral Twice A Day Active 07/07/2017 [facility] Allopurinol 100 Mg Tablet, 100 Mg Oral Daily Active 06/25/2015 [facility] Clopidogrel Bisulfate (Plavix) 75 Mg Tablet, 75 Mg Oral Every Other Day Active 06/25/2015 [facility] Insulin Detemir (Levemir) 100 Unit/1 Ml Vial, 25 Units Sub-Q Bedtime Active 06/25/2015 [facility] Hydrocodone Bit/Acetaminophen (Hydrocodon-Acetaminophn 10-325) 1 Each Tablet, 1 Tab Oral Prn Pain Active 10/19/2013 [facility] Glipizide 10 Mg Tablet, 10 Mg Oral Daily Active 08/30/2013 [facility] Nifedipine (Nifedipine Xl) 30 Mg Tab.er.24, 60 Mg Oral Every 12 Hours Active 08/30/2013 [facility] Acarbose 100 Mg Tablet, 100 Mg Oral Three Times Daily With Meals Active 07/27/2013 [facility] Clonidine Hcl 0.2 Mg Tablet, 0.2 Mg Oral Every 8 Hours Active 07/27/2013 [facility] Clopidogrel Bisulfate (Plavix) 300 Mg Tablet, 75 Mg Oral Every Other Day Active 07/27/2013 [facility] Diclofenac Sodium (Voltaren) 100 Gm Gel..gram., Topically Active 07/27/2013 [facility] Glyburide 5 Mg Tablet, 5 Mg Oral Twice A Day Active 07/27/2013 [facility] Insulin Glargine,Hum.rec.anlog (Lantus) 100 Unit/1 Ml Cartridge, 25 Units Sub-Q Bedtime Active 07/27/2013 [facility] Lisinopril 5 Mg Tablet, 5 Mg Oral Daily Active 07/27/2013 [facility] Amiodarone Hcl 200 Mg Tablet, 200 Mg Oral Tuesday Active 06/14/2013 [facility] Clonidine (Catapres-Tts 2) 1 Each Patch.tdwk, 0.2 Mg Oral Every 8 Hours Active 06/14/2013 [facility] Diltiazem Hcl (Diltiazem Er) 240 Mg Cap.er.deg, 240 Mg Oral Bedtime Active 06/14/2013 [facility] Ascorbic Acid (Vitamin C) 500 Mg Tablet Daily Active [facility] Aspirin (Aspirin Ec) 81 Mg Tablet.dr Daily Active [facility] Atorvastatin Calcium 20 Mg Tablet Bedtime Active [facility] Calcitriol 0.25 Mcg Capsule Daily Active [facility] Clopidogrel Bisulfate (Plavix) 75 Mg Tablet Daily Active [facility] Eliquis Twice A Day Active [facility] Ergocalciferol (Vitamin D2) (Vitamin D2) 50,000 Unit Capsule Use As Directed Active PATIENT TAKES ONCE PER WEEK [facility] Flaxseed (Flaxseed Oil) 1,000 Mg Capsule Daily Active [facility] Insulin Detemir (Levemir) 100 Unit/1 Ml Vial Twice A Day Active [facility] Lactobacillus Cmb#7/Fos/Inulin (Probiotic Complex Tablet) 1 Each Tablet Three Times A Day Active [facility] Metoprolol Tartrate 50 Mg Tablet Twice A Day Active [facility] Miralax As Needed for Constipation Active [facility] Nitroglycerin 0.4 Mg Tab.subl Every 5 Minutes as needed for Chest Pain Active [facility] Pantoprazole Sodium (Protonix) 40 Mg Tablet. Daily Active [facility] Primidone 50 Mg Tablet Twice A Day Active [facility] Sevelamer Carbonate 800 Three Times A Day Active [facility] Ubidecarenone (Coq-10) 100 Mg Capsule Daily Active [facility] Allergies, Adverse Reactions, Alerts No Known Medication Allergies Immunizations No Data Provided for This Section Results Order Name Results Value Reference Range Date Interpretation Comments Source Blood leukocytes automated count (number/volume) 11.52 4.8 - 10.8 02/15/2019 [facility] Blood erythrocytes automated count (number/volume) 2.26 4.3 - 5.7 02/15/2019 [facility] Blood hemoglobin measurement (moles/volume) 8.3 14.0 - 18.0 02/15/2019 [facility] Automated blood hematocrit (volume fraction) 25.6 38.2 - 49.6 02/15/2019 [facility] Automated erythrocyte mean corpuscular volume 113.3 81 - 99 02/15/2019 [facility] Automated erythrocyte mean corpuscular hemoglobin (mass per erythrocyte) 36.7 28 - 32 02/15/2019 [facility] Automated erythrocyte mean corpuscular hemoglobin concentration measurement (mass/volume) 32.4 31 - 35 02/15/2019 [facility] RDW BldCo-Rto 20.4 11.7 - 14.4 02/15/2019 [facility] Automated blood platelet count (count/volume) 346 140 - 360 02/15/2019 [facility] Automated blood segmented neutrophil count as percentage of total leukocytes 78.9 38.7 - 80.0 02/15/2019 [facility] Automated blood lymphocyte count as percentage ot total leukocytes 9.7 18.0 - 39.1 02/15/2019 [facility] Automated blood monocyte count as percentage of total leukocytes 8.4 4.4 - 11.3 02/15/2019 [facility] Automated blood eosinophil count as percentage of total leukocytes 2.1 0.0 - 6.0 02/15/2019 [facility] Automated blood basophil count as percentage of total leukocytes 0.3 0.0 - 1.0 02/15/2019 [facility] IM GRANULOCYTES % 0.6 0.0 - 1.0 02/15/2019 [facility] Automated blood neutrophil count 9.1 2.1 - 6.9 02/15/2019 [facility] Blood lymphocytes count (number/volume) 1.1 1.0 - 3.2 02/15/2019 [facility] Blood monocytes automated count (number/volume) 1.0 0.2 - 0.8 02/15/2019 [facility] Automated blood eosinophil count 0.2 0.0 - 0.4 02/15/2019 [facility] Automated blood basophil count (count/volume) 0.0 0.0 - 0.1 02/15/2019 [facility] Absolute Immature Granulocyte (auto 0.07 0 - 0.1 02/15/2019 [facility] Prothrombin time (PT) in platelet poor plasma by coagulation assay 15.0 11.9 - 14.5 02/15/2019 [facility] INR in Platelet poor plasma by Coagulation assay 1.13 02/15/2019 [facility] Activated partial thromboplastin time (aPTT) in platelet poor plasma bycoagulation assay 28.6 23.8 - 35.5 02/15/2019 [facility] Serum or plasma sodium measurement (moles/volume) 133 136 - 145 02/15/2019 [facility] Serum or plasma potassium measurement (moles/volume) 4.0 3.5 - 5.1 02/15/2019 [facility] Serum or plasma chloride measurement (moles/volume) 96 98 - 107 02/15/2019 [facility] Serum or plasma carbon dioxide, total measurement (moles/volume) 25 22 - 29 02/15/2019 [facility] Serum or plasma anion gap 16.0 8 - 16 02/15/2019 [facility] Serum or plasma urea nitrogen measurement (mass/volume) 23 7 - 26 02/15/2019 [facility] Serum or plasma creatinine measurement (mass/volume) 2.34 0.72 - 1.25 02/15/2019 [facility] Serum or plasma urea nitrogen/creatinine mass ratio 10 6 - 25 02/15/2019 [facility] Estimated glomerular filtration rate (GFR) determination 27 60 02/15/2019 [facility] Glucose measurement 129 74 - 118 02/15/2019 [facility] Serum or plasma calcium measurement (mass/volume) 9.1 8.4 - 10.2 02/15/2019 [facility] Serum or plasma magnesium measurement (mass/volume) 2.2 1.3 - 2.1 02/15/2019 [facility] Serum or plasma total bilirubin measurement (mass/volume) 1.0 0.2 - 1.2 02/15/2019 [facility] Aspartate Amino Transf (AST/SGOT) 23 5 - 34 02/15/2019 [facility] Serum or plasma alanine aminotransferase measurement (enzymatic activity/volume) 14 0 - 55 02/15/2019 [facility] Serum or plasma protein measurement (mass/volume) 7.6 6.5 - 8.1 02/15/2019 [facility] Serum or plasma albumin measurement (mass/volume) 2.7 3.5 - 5.0 02/15/2019 [facility] Plasma globulin measurement (mass/volume) 4.9 2.3 - 3.5 02/15/2019 [facility] Serum or plasma albumin/globulin mass ratio 0.6 0.8 - 2.0 02/15/2019 [facility] Serum or plasma alkaline phosphatase measurement (enzymatic activity/volume) 239 40 - 150 02/15/2019 [facility] Serum or plasma creatine kinase measurement (enzymatic activity/volume) 59 30 - 200 02/15/2019 [facility] Serum or plasma creatine kinase MB measurement (mass/volume) 6.50 0 - 5.0 02/15/2019 [facility] Troponin I measurement by highly sensitive enzyme immunoassay 0.157 0 - 0.300 02/15/2019 [facility] Serum or plasma thyrotropin measurement by detection limit <=0.005 miu/l (units/volume) 1.585 0.350 - 4.940 02/15/2019 [facility] Capillary blood glucose measurement by glucometer (mass/volume) 166 70 - 120 02/01/2019 [facility] Differential Total Cells Counted 100 02/01/2019 [facility] Manual blood neutrophils/100 leukocytes 78 40 - 74 02/01/2019 [facility] Manual blood lymphocytes/100 leukocytes 9 19 - 48 02/01/2019 [facility] Manual blood monocytes/100 leukocytes 13 3.4 - 9.0 02/01/2019 [facility] Blood platelets count by estimate (number/volume) ADEQUATE 02/01/2019 [facility] Platelet morphology NORMAL 02/01/2019 [facility] Blood hypochromia detection by light microscopy SLIGHT 02/01/2019 [facility] RBC morphology NORMAL 02/01/2019 [facility] Serum hepatitis B virus surface antibody assay by radioimmunoassay (units/volume) 20.7 Immunity>9.9 01/29/2019 [facility] Serum or plasma hepatitis B virus core antibody detection by immunoassay Negative Negative 01/29/2019 [facility] Serum or plasma hepatitis B virus surface antigen detection by immunoassay Negative Negative 01/29/2019 [facility] Manual blood eosinophil count as percentage of total leukocytes 1 0 - 7 01/29/2019 [facility] Blood lymphocytes variant count (number/volume) 1 01/29/2019 [facility] Activated clotting time at point of care 184 12/20/2018 [facility] Serum or plasma triglyceride measurement (mass/volume) 56 0 - 149 12/18/2018 [facility] Serum or plasma cholesterol measurement (mass/volume) 51 0 - 199 12/18/2018 [facility] Serum or plasma cholesterol in LDL measurement (mass/volume) 3 60 - 130 12/18/2018 [facility] Serum or plasma cholesterol in HDL measurement (mass/volume) 37 40 - 60 12/18/2018 [facility] Serum or plasma total cholesterol/cholesterol in HDL mass ratio 1.4 3.9 - 4.7 12/18/2018 [facility] Urine color determination YELLOW YELLOW 11/01/2018 [facility] Urine clarity CLEAR CLEAR 11/01/2018 [facility] Specific gravity of Urine by Test strip 1.020 1.010 - 1.025 11/01/2018 [facility] Urine pH measurement by automated test strip 7 5 - 7 11/01/2018 [facility] Urine leukocyte esterase detection by dipstick NEGATIVE NEGATIVE 11/01/2018 [facility] Urine nitrite detection NEGATIVE NEGATIVE 11/01/2018 [facility] Urine protein measurement by test strip (mass/volume) 2+ NEGATIVE 11/01/2018 [facility] Urine glucose detection NEGATIVE NEGATIVE 11/01/2018 [facility] Urine ketones detection by automated test strip NEGATIVE NEGATIVE 11/01/2018 [facility] Urine urobilinogen measurement by test strip (mass/volume) 0.2 0.2 - 1 11/01/2018 [facility] Urine total bilirubin measurement (mass/volume) NEGATIVE NEGATIVE 11/01/2018 [facility] Urine erythrocytes detection NEGATIVE NEGATIVE 11/01/2018 [facility] Automated urine sediment leukocyte count by microscopy (number/high power field) 0-5 0 - 5 11/01/2018 [facility] Erythrocytes detection in urine sediment by light microscopy NONE 0 - 5 11/01/2018 [facility] Bacteria detection in urine sediment by light microscopy RARE NONE 11/01/2018 [facility] Epithelial cells detection in urine sediment by light microscopy RARE NONE 11/01/2018 [facility] Phosphorus measurement 5.5 2.3 - 4.7 08/22/2018 [facility] Serum or plasma hepatitis B virus core IgM antibody detection by immunoassay Negative Negative 08/17/2018 [facility] Pathology Reports No Data Provided for This [...] Date DC Date Status Source Discharged Inpatient [id number] OSCAR DEVLIN MD 08/16/2018 08/22/2018 [facility] Discharged Inpatient (obs) [id number] KISHOR HOLLAND MD 09/06/2018 09/06/2018 [facility] Departed Emergency Room [id number] ELKE STEPHENS MD 10/17/2018 10/18/2018 [facility] Discharged Inpatient [id number] OSCAR DEVLIN MD 11/02/2018 11/07/2018 [facility] Registered Surgical Day Care [id number] KISHOR HOLLAND MD 12/20/2018 [facility] Discharged Inpatient [id number] KISHOR HOLLAND MD 01/29/2019 02/01/2019 [facility] Departed Emergency Room [id number] CHANO WALLACE MD 02/06/2019 02/06/2019 [facility] Departed Emergency Room [id number] RENETTA MARTINEZ MD 02/15/2019 02/15/2019 [facility] Procedures Procedure Code Date Perfomer Comments Source EXTIRPATION OF MATTER FROM R FEM ART, PERC APPROACH [id number] 01/29/2019 [facility] DILATION OF R FEM ART WITH INTRALUM DEV, PERC APPROACH [id number] 01/29/2019 [facility] FLUOROSCOPY OF R LOW EXTREM ART USING L OSM CONTRAST [id number] 01/29/2019 [facility] FLUOROSCOPY OF ABDOMINAL AORTA USING LOW OSMOLAR CONTRAST [id number] 01/29/2019 [facility] ENDOLUMINL IVUS OCT C 1ST [id number] 12/20/2018 [facility] L HRT ARTERY/VENTRICLE ANGIO [id number] 12/20/2018 [facility] REPOSITION LEFT UPPER FEMUR WITH INTRAMED FIX, PERC APPROACH [id number] 11/02/2018 [facility] Computed tomography of lumbar spine without contrast [id number] 11/01/2018 [facility] Computed tomography of pelvis without contrast [id number] 11/01/2018 [facility] Computed tomography of brain without radiopaque contrast [id number] 10/18/2018 [facility] Computed tomography of cervical spine without contrast [id number] 10/18/2018 [facility] Computed tomography of chest without contrast [id number] 10/18/2018 [facility] [address] of abdomen and pelvis without contrast [id number] 10/18/2018 [facility] FEM/POPL REVAS W/ATHER [id number] 09/06/2018 [facility] DILATION OF RIGHT COMMON ILIAC ARTERY, PERCUTANEOUS APPROACH [id number] 08/18/2018 [facility] DILATION OF L COM ILIAC ART WITH INTRALUM DEV, PERC APPROACH [id number] 08/18/2018 [facility] PERFORMANCE OF URINARY FILTRATION, <6 HRS/DAY [id number] 08/17/2018 [facility] Assessment and Plan No Data Provided for This Section Plan of Care Plan of Care Date Source Discharge Date 02/15/19 5:30pm Disposition HOME, SELF-CARE Condition at Discharge Stable Instructions/Education Provided Atrial Fibrillation Forms Provided Work/School Excuse Prescriptions See Medication Section Referrals KISHOR MORE MD Address: [address] [place] [id number] Additional Instructions/Education TAKE HOME MEDICAITONS PRESCRIBED. FOLLOW UP WITH DR WEST. 02/15/2019 [facility] Social History Social History Date Source Social [...] Start Date Stop Date Former smoker 02/15/2019 [facility] Family History No Data Provided for This Section Advance Directives Order Name Results Value Date Source Advance Directives Advance Directives Directive Response Recorded Date/Time Does the patient have an advance directive? No 02/06/19 2:27pm Do you have a Directive to Physician? No 02/15/19 2:27pm Do you have a Medical Power of Seismic Prospecting Observer Helper? No 02/15/19 2:27pm Do you have an [...] rights and responsibilities? Yes 02/15/19 2:27pm 02/15/2019 [facility] Functional Status No Data Provided for This Section
[2019-07-19] MEDS ORDERED: VANCOMYCIN 1GM/NS 250 ML 250 ML IV SCH (19:30)
[2019-07-19] MEDS: MEROPENEM 1GM 100 ML IV SCH (19:38)
[2019-07-19] MEDS: FAMOTIDINE 20 MG/2 ML VIAL IV SCH (19:38)
[2019-07-19 20:00] VITALS: BP 132/61
[2019-07-19 21:05] LABS: PLATELET ESTIMATE SLIGHTLY INCREASED
[2019-07-19 21:06] LABS: PLATELET MORPHOLOGY COMMENT NORMAL; RBC MORPHOLOGY COMMENT NORMAL
[2019-07-19 21:07] LABS: HYPOCHROMASIA MODERATE; POIKILOCYTOSIS MODERATE
--- NOTE | 2019-07-19 21:45 | NUR ---
Pt admitted to room 299 via stretcher. Pt alert to name and know he is in the hospital. Confused to time and situation. Skin thin and bruised. multiple pressure ulcers to LE: left ankle-1inch, left great toe-eschar, left healing ulcer, right heel-unstageable, right ankle~1 inch, sacrum-stage II. Right knee heeling abrasion. Right foot toes 1, 2, 3, and 4 with black eschar. Multiple bruises to bilateral upper extremities. Dx: AMS, CKD, UTI, pressure ulcers, gangrene right foot. 20g IV left FA, flushes easily with 10ml NS. Max assist x1. Wears a diaper. Last BM 07/19. Pt/ denies urinary problems. Pulses weak to LE. Pt on complete bedrest. Pt/ oriented to room. Call ford within reach. Bed low and locked. Will continue to monitor.
[2019-07-19 21:55] VITALS: BP 132/61
[2019-07-19 22:11] VITALS: BP 132/61
[2019-07-19] MEDS ORDERED: ALBUTEROL/IPRATROPIUM 3 ML NEB NEB PRN (22:30)
[2019-07-19] MEDS ORDERED: HYDROCODONE/APAP 7.5MG-325MG 1 EA TAB PO PRN (22:30)
[2019-07-19] MEDS ORDERED: ACETAMINOPHEN 325 MG TAB PO PRN (22:30)
[2019-07-19] MEDS ORDERED: NITROGLYCERIN 0.4 MG SUBL SL PRN (22:30)
[2019-07-19] MEDS ORDERED: POLYETHYLENE GLYCOL 3350 17 GM PACK PO PRN (22:30)
[2019-07-19] MEDS ORDERED: DEXTROSE 50% SYRINGE 50 ML IV PRN (22:30)
[2019-07-20] VITALS (8 sets, daily range): BP systolic 132–142; BP diastolic 58–69
[2019-07-20 00:55] LABS: CREATINE KINASE MB 3.7 ng/mL (0-5.0)
[2019-07-20] MEDS: MEROPENEM 1GM 100 ML IV SCH ×2 (06:26→18:27)
--- NOTE | 2019-07-20 06:28 | NUR ---
Spoke with on-call engineering supervisor for Dr. Silvestre and informed of consult for ESRD, HD. Stated will inform Dr. Silvestre. Pt alert sitting in bed. Denies pain at this time. Bed alarm on. at bedside.
[2019-07-20 06:50] LABS: BASOPHILS # (AUTO) 0.1 (0.0-0.1); BASOPHILS % 0.6 % (0.0-1.0); EOSINOPHILS # (AUTO) 0.7 (0.0-0.4); EOSINOPHILS % 4.5 % (0.0-6.0); HEMATOCRIT 31.7 % (38.2-49.6); HEMOGLOBIN 9.5 g/dL (14.0-18.0); LYMPHOCYTES % 6.2 % (18.0-39.1); MEAN CORPUSCULAR HEMOGLOBIN 33.2 pg (28-32); MEAN CORPUSCULAR VOLUME 110.8 fL (81-99); MONOCYTES # (AUTO) 1.3 (0.2-0.8); MONOCYTES % 8.3 % (4.4-11.3); NEUTROPHILS # (AUTO) 12.2 (2.1-6.9); NEUTROPHILS % 79.6 % (38.7-80.0); PLATELET COUNT 477 x10e3/uL (140-360); RED BLOOD COUNT 2.86 x10e6/uL (4.3-5.7); RED CELL DISTRIBUTION WIDTH 20.9 % (11.7-14.4)
[2019-07-20 07:11] LABS: ALBUMIN 1.8 g/dL (3.5-5.0); ALBUMIN/GLOBULIN RATIO 0.3 (0.8-2.0); ANION GAP 14.1 mmol/L (8-16); CALCIUM 9.9 mg/dL (8.4-10.2); CHOL/HDL RATIO 2.1 (3.9-4.7); CREATININE, SERUM 2.96 mg/dL (0.72-1.25); POTASSIUM 4.1 mmol/L (3.5-5.1)
--- NOTE | 2019-07-20 07:25 | NUR ---
Pt handed off to morning nurse. BS report given. No acute distress noted.
[2019-07-20] MEDS: INSULIN LISPRO 100 UNIT/1 ML 3ML VIAL SQ SCH ×4 (07:30→20:20)
[2019-07-20 08:33] LABS: CREATINE KINASE MB 3.1 ng/mL (0-5.0)
[2019-07-20] MEDS: ASPIRIN 81 MG ENTERIC COATED PO SCH (09:00)
[2019-07-20] MEDS ORDERED: SEVELAMER CARBONATE 800 MG PO SCH (09:00)
[2019-07-20] MEDS: METOPROLOL TARTRATE 50 MG TAB PO SCH ×2 (09:00→16:30)
[2019-07-20] MEDS ORDERED: ASCORBIC ACID 500 MG TAB PO SCH (09:00)
[2019-07-20] MEDS: APIXAB 2.5 MG TABLET PO SCH ×2 (09:00→16:29)
[2019-07-20] MEDS: INSULIN GLARGINE 100 UNITS/ML VIAL SC SCH ×2 (09:00→17:53)
[2019-07-20] MEDS: FAMOTIDINE 20 MG/2 ML VIAL IV SCH ×2 (10:44→18:27)
[2019-07-20] MEDS: SEVELAMER CARBONATE 800 MG TAB PO SCH ×3 (10:47→17:39)
[2019-07-20] MEDS: CLOPIDOGREL BISULFATE 75 MG TAB PO SCH (10:50)
[2019-07-20] MEDS: PANTOPRAZOLE SOD 40 MG TABEC PO SCH (10:51)
[2019-07-20] MEDS: PRIMIDONE 50 MG TAB PO SCH ×2 (10:51→17:49)
[2019-07-20] MEDS: CALCITRIOL 0.25 MCG CAP PO SCH (10:52)
--- NOTE | 2019-07-20 12:16 | Consultation ---
DATE OF CONSULTATION: 07/20/2019 Renal Consultation REASON FOR CONSULTATION: End-stage renal disease. HISTORY OF PRESENT ILLNESS: A 79-year-old male with end-stage renal disease, on hemodialysis Tuesday, , Tuesday, who was brought to [facility] after dialysis for hypotension. The patient is a poor historian and history is taken from medical record as well as his provider at the bedside. The patient apparently has not been doing well over the past 2 to 3 days. He has had more confusion. After dialysis, he became more confused. He was noted to be hypotensive and EMS was called. The patient was admitted. He was found to have leukocytosis and Nephrology consultation was called. REVIEW OF SYSTEMS: A 12-point review of systems completed and all systems negative other than above. PAST MEDICAL HISTORY: 1. End-stage renal disease, on hemodialysis Tuesday, , Tuesday. 2. Hypertension. 3. Dyslipidemia. 4. Paroxysmal atrial fibrillation. 5. Diabetes type 2. 6. Coronary artery disease. 7. Congestive heart failure. 8. Peripheral vascular disease, status post aortoiliac stent and left SFA revascularization. 9. Gangrene of the right foot. PAST SURGICAL HISTORY: 1. Carotid endarterectomy. 2. Surgical excision of skin cancer. 3. Right upper extremity amputation. SOCIAL HISTORY: Quit tobacco in 2006. Lives with . No alcohol. No IV drugs. FAMILY HISTORY: Positive for diabetes, hypertension, and coronary artery disease. No kidney disease. ALLERGIES: NO KNOWN DRUG ALLERGIES. CURRENT MEDICATIONS: See list. PHYSICAL EXAMINATION: VITAL SIGNS: Blood pressure 132/69, pulse 70, respiratory rate 16, and temperature 96.8. GENERAL: No apparent distress. HEENT: Oropharynx clear. No scleral icterus. No peripheral edema. NECK: Supple. No elevation in jugular venous pressure. No lymphadenopathy. CHEST: Clear to auscultation anteriorly bilaterally. CARDIOVASCULAR: Regular rhythm. No murmurs or rubs. ABDOMEN: Soft. Positive bowel sounds. No tenderness. No rebound. EXTREMITIES: No edema. No clubbing. IMAGING DATA: Chest x-ray, some pulmonary edema, cardiomegaly. CT of the brain shows no acute intracranial abnormality. LABORATORY DATA: White count 15,000, down from 21,000, hemoglobin 9.5, and platelets 477. Sodium 132, potassium 4.1, chloride 97, BUN 35, creatinine 2.96, and albumin 1.8. Cultures pending. ASSESSMENT AND PLAN: 1. End-stage renal disease. Continue hemodialysis Tuesday, , Tuesday. 2. Lytes acceptable. 3. Anemia secondary to chronic kidney disease. We will start the patient on Epogen. 4. Congestive heart failure, appears compensated. 5. Wound care. 6. Leukocytosis, on antibiotics. Cultures are pending. MD KAREN Palacios/SINA /[id number]
--- NOTE | 2019-07-20 15:33 | NUR ---
WOUND CARE NURSE INITIAL CONSULTATION. 79 YEAR OLD MALE ADMITTED TO [facility] WITH DX OF AMS, UTI, PRESSURE ULCER AND GANGRENE OF RIGHT FOOT. HEAD TO TOE SKIN ASSESSMENT PERFORMED TODAY, PT PRESENTS WITH DRY GANGRENE TO RIGHT 1ST, 2ND, 3RD AND 4TH TOES. RIGHT HEEL 3.5X2X0.3CM UNSTAGEABLE PRESSURE ULCER. 100% NECROTIC. LEFT HALLUX 1X1X0.1CM ESCHAR; LEFT LAT. ANKLE. 0.5X0.5X.1CM UNSTAGEABLE PRESSURE ULCER, 100% ESCHAR; LEFT LATERAL HEEL 0.7X0.5X0.1CM UNSTAGEABLE PRESSURE ULCER, 100% ESCHAR; RIGHT KNEE 0.4X0.4X0.1CM 100% ESCHAR; 3X4CM STAGE I PRESSURE ULCER TO SACRUM. THERE ARE NO OTHER AREAS OF CONCERN NOTED AT THIS TIME. NO S/S OF INFECTION. NO PALPABLE PULSES. PER AT BEDSIDE PT HAD BILATERAL LOWER LEG STENTS PLACED IN MARCH OF THIS YEAR. STATES THAT AT THIS POINT WOUND CARE DOCTOR IS WANTING TO KEEP ULCERS DRY AND STABLE. PT AND AGREED WITH CURRENT PLAN OF CARE. LABS: WBC: 15.28 ALB: 1.8 BLOOD AND URINE CX RESULTS ARE PENDING AT THIS TIME. MODERATE PUP. RECOMMENDATIONS: APPLY BETADINE WET TO DRY TO RIGHT 1ST, 2ND, 3RD AND 4TH TOES WELL TO RIGHT HEEL AND COVER WITH 4X4 GAUZE, KERLIX AND TAPE. CHANGE DRESSING DAILY. APPLY BETADINE DAILY TO LEFT HALLUX, LEFT LAT ANKLE, LEFT LAT. HEEL, AND RIGHT KNEE, LET AIR DRY AND LEAVE OPEN TO AIR. APPLY VENELEX OINTMENT TO SACRUM AND COVER WITH FOAM DRESSING DAILY. TURN PT EVERY TWO HOURS AND PRN CONTINUE WITH OFFLOADING BOOTS AND PILLOW SUSPENSIONS CONTINUE WITH ALTERNATING LOW AIR LOSS MATTRESS. THANKS FOR THIS CONSULTATION. Addendum: 07/20/19 at 1546 by Laine Chapa RN Amended: Links added.
[2019-07-20] MEDS: ATORVASTATIN 20 MG TAB PO SCH (20:20)
--- NOTE | 2019-07-20 20:20 | NUR ---
PATIENT IS IN STABLE CONDITION, NO DISTRESS NOTED. FAMILY MEMBER AT BEDSIDE, NASAL CANNULA INTACT AND FLOWING AT 2 LITERS. RIGHT FOOT DRESSING CLEAN AND DRY, BED IS IN LOWEST POSITION AND LOCKED, BOTH SIDE RAILS ARE UP, CALL LIGHT WITHIN REACH, WILL CONTINUE TO MONITOR.
--- NOTE | 2019-07-20 23:45 | NUR ---
PATIENT BECAME ANXIOUS AND REMOVED DRESSINGS FROM RIGHT FOOT AND RIGHT PORT A CATHETER. DRESSING WAS REDONE WITH HELP OF FAMILY MEMBER, WILL CONTINUE TO MONITOR.
[2019-07-21] VITALS (9 sets, daily range): BP systolic 143–174; BP diastolic 59–75
[2019-07-21] MEDS: METOPROLOL TARTRATE 50 MG TAB PO SCH ×3 (00:07→16:35)
--- NOTE | 2019-07-21 04:47 | NUR ---
PATIENT REMOVED DRESSING FROM RIGHT FOOT AGAIN. WOUND WAS REWRAPPED WITH BETADINE ON TOES. PATIENT IS STABLE, FAMILY MEMBER PRESENT, WILL CONTINUE TO MONITOR.
[2019-07-21 06:51] LABS: BASOPHILS # (AUTO) 0.1 (0.0-0.1); BASOPHILS % 0.5 % (0.0-1.0); EOSINOPHILS % 5.4 % (0.0-6.0); HEMATOCRIT 30.9 % (38.2-49.6); HEMOGLOBIN 9.5 g/dL (14.0-18.0); LYMPHOCYTES # (AUTO) 1.5 (1.0-3.2); LYMPHOCYTES % 7.9 % (18.0-39.1); MEAN CORPUSCULAR HEMOGLOBIN 33.5 pg (28-32); MEAN CORPUSCULAR HGB CONC 30.7 g/dL (31-35); MEAN CORPUSCULAR VOLUME 108.8 fL (81-99); MONOCYTES # (AUTO) 1.7 (0.2-0.8); MONOCYTES % 8.7 % (4.4-11.3); NEUTROPHILS # (AUTO) 14.8 (2.1-6.9); NEUTROPHILS % 76.8 % (38.7-80.0); PLATELET COUNT 568 x10e3/uL (140-360); RED BLOOD COUNT 2.84 x10e6/uL (4.3-5.7); RED CELL DISTRIBUTION WIDTH 20.7 % (11.7-14.4)
[2019-07-21] MEDS: MEROPENEM 1GM 100 ML IV SCH ×2 (07:00→18:02)
--- NOTE | 2019-07-21 07:00 | NUR ---
received am report from nurse and morning rounds done. pt is alert and responding to verbal stimuli, no s/s of distress. personal private duty nurse is at the bedside. call light within reach and instructed to call the nurse for help
[2019-07-21] MEDS: FAMOTIDINE 20 MG/2 ML VIAL IV SCH ×2 (07:15→18:02)
[2019-07-21 07:17] LABS: ANION GAP 18.7 mmol/L (8-16); CALCIUM 10.5 mg/dL (8.4-10.2); CREATININE, SERUM 4.57 mg/dL (0.72-1.25); POTASSIUM 4.7 mmol/L (3.5-5.1)
[2019-07-21] MEDS: INSULIN LISPRO 100 UNIT/1 ML 3ML VIAL SQ SCH ×4 (07:30→21:00)
[2019-07-21] MEDS ORDERED: SODIUM CHLORIDE 0.9% 1000ML 1,000 ML ONE (07:32)
[2019-07-21] MEDS: SEVELAMER CARBONATE 800 MG TAB PO SCH ×3 (08:00→16:39)
[2019-07-21] MEDS: APIXAB 2.5 MG TABLET PO SCH ×2 (08:35→16:27)
[2019-07-21] MEDS: INSULIN GLARGINE 100 UNITS/ML VIAL SC SCH ×2 (08:35→16:49)
[2019-07-21] MEDS: PRIMIDONE 50 MG TAB PO SCH ×2 (08:35→16:39)
[2019-07-21] MEDS: ASPIRIN 81 MG ENTERIC COATED PO SCH (09:00)
[2019-07-21 09:11] LABS: EOSINOPHILS % (MANUAL) 4 % (0-7); LYMPHOCYTES % (MANUAL) 6 % (19-48); MONOCYTES % (MANUAL) 7 % (3.4-9.0); NEUTROPHILS % (MANUAL) 83 % (40-74); PLATELET ESTIMATE MODERATELY INCREASED; PLATELET MORPHOLOGY COMMENT FEW GIANT; RBC MORPHOLOGY COMMENT NORMAL
[2019-07-21] MEDS: BALSAM PERU/CASTOR OIL 60 GM OINT...G. TP SCH (11:23)
[2019-07-21] MEDS ORDERED: HEPARIN SOD (PORCINE) 1000 UNIT/ML SDV IV PRN (12:30)
[2019-07-21] MEDS ORDERED: SODIUM CHLORIDE 0.9% 1000ML 2,000 ML IV PRN (12:30)
--- NOTE | 2019-07-21 13:00 | NUR ---
received report from shot man. 1.5 Liters were removed. the pt's blood pressure is 126/49 heart rate 70. pt is resting comfortably, no s/s of distress. is at the bedside
[2019-07-21] MEDS: CLOPIDOGREL BISULFATE 75 MG TAB PO SCH (13:10)
[2019-07-21] MEDS: CALCITRIOL 0.25 MCG CAP PO SCH (13:10)
[2019-07-21] MEDS: PANTOPRAZOLE SOD 40 MG TABEC PO SCH (13:10)
[2019-07-21] MEDS: EPOETIN ALFA 10000 UNIT/ML VIAL SC SCH (13:11)
--- NOTE | 2019-07-21 14:51 | NUR ---
Nutrition Screen Note RD Recommendation for Physician: Continue diet as ordered Plan of Care: RD following, monitoring for tolerance and adequacy Nutrition reason for involvement: Nutrition Risk Trigger - MST Primary Diagnose(s):AMS, CKD stage 5, gangrene of right foot PMH: 1. End-stage renal disease, on hemodialysis Tuesday, , Tuesday. Hypertension. Dyslipidemia. Paroxysmal atrial fibrillation. Diabetes type, Coronary artery disease. Congestive heart failure. Peripheral vascular disease, status post aortoiliac stent and left SFA revascularization. Gangrene of the right foot. Ht:73 in Wt:186lb BMI: kg/m2 IBW:lb +/-10% RD Assessment: (07/21/2019) Chart reviewed. Labs and meds reviewed. Initial encounter with Patient and family present. Pt denies having any difficulty chewing or swallowing nor has any N,V,D. Pt denies any significant wt changes Current Diet:1800 ADA Malnutrition Evaluation (07/21/2019) The patient does not meet criteria for a specified degree of malnutrition at this time. Will re-evaluate at follow-up as appropriate. Diet Education Needs Assessment: Diet education not indicated due to mental status and confusion. Nutrition Care Level: Low Signed: Juan Pablo Nuñez RD, LD, CNSC
[2019-07-21] MEDS: VANCOMYCIN 250MG/5ML ORAL SOLN PO SCH ×2 (17:23→21:00)
[2019-07-21] MEDS: ATORVASTATIN 20 MG TAB PO SCH (21:00)
--- NOTE | 2019-07-21 21:00 | NUR ---
PATIENT RESTING IN BED, NO SIGNS OF DISTRESS NOTED. FAMILY MEMBER IS AT BEDSIDE, PATIENT IS ALERT AND DOES NOT COMPLAIN OF PAIN AT THIS TIME. BED IS IN LOW POSITION, BOTH SIDE RAIL ARE UP, CALL LIGHT WITHIN REACH, WILL CONTINUE TO MONITOR.
[2019-07-22] VITALS (8 sets, daily range): BP systolic 133–165; BP diastolic 61–70
--- NOTE | 2019-07-22 03:20 | NUR ---
PATIENT WAS DRENCHED IN SWEAT AND BEGAN TREMBLING. BLOOD SUGAR WAS TAKEN AND IT READ AT 43, PATIENT'S HELPED BY GIVING PATIENT APPLE JUICE AND SUGAR. ATTEMPTED TO GIVE PATIENT DEXTROSE, BUT PATIENT VOICED PAIN DURING PROCESS AND DECIDED TO STOP. AFTER 30 MINUTES, RECHECKED BLOOD SUGAR AND IT READ 138. PATIENT SHOWED NO SIGNS OF DISTRESS, WILL CONTINUE TO MONITOR.
--- NOTE | 2019-07-22 06:03 | NUR ---
PATIENT REFUSED 0500 LAB DRAWS. WILL REVISIT TO TRY AT ANOTHER TIME.
[2019-07-22] MEDS: VANCOMYCIN 250MG/5ML ORAL SOLN PO SCH ×3 (06:36→22:20)
[2019-07-22] MEDS: MEROPENEM 1GM 100 ML IV SCH (06:36)
--- NOTE | 2019-07-22 07:00 | NUR ---
received am report from nurse and morning rounds done. pt is resting comfortably in bed, no s/s of distress. call light is within reach and is at the bedside.
[2019-07-22] MEDS: FAMOTIDINE 20 MG/2 ML VIAL IV SCH (07:15)
[2019-07-22] MEDS: ASPIRIN 81 MG ENTERIC COATED PO SCH (08:26)
[2019-07-22] MEDS: APIXAB 2.5 MG TABLET PO SCH ×2 (08:27→16:36)
[2019-07-22] MEDS: INSULIN LISPRO 100 UNIT/1 ML 3ML VIAL SQ SCH ×4 (09:30→21:00)
[2019-07-22] MEDS: METOPROLOL TARTRATE 50 MG TAB PO SCH ×2 (09:35→15:10)
[2019-07-22] MEDS: SEVELAMER CARBONATE 800 MG TAB PO SCH ×3 (09:35→17:11)
[2019-07-22] MEDS: PANTOPRAZOLE SOD 40 MG TABEC PO SCH (09:36)
[2019-07-22] MEDS: CLOPIDOGREL BISULFATE 75 MG TAB PO SCH (09:36)
[2019-07-22] MEDS: BALSAM PERU/CASTOR OIL 60 GM OINT...G. TP SCH (09:36)
[2019-07-22] MEDS: PRIMIDONE 50 MG TAB PO SCH ×2 (09:36→17:11)
[2019-07-22] MEDS: CALCITRIOL 0.25 MCG CAP PO SCH (09:36)
[2019-07-22] MEDS: INSULIN GLARGINE 100 UNITS/ML VIAL SC SCH ×2 (09:39→16:36)
[2019-07-22 13:27] LABS: BASOPHILS # (AUTO) 0.1 (0.0-0.1); BASOPHILS % 0.4 % (0.0-1.0); EOSINOPHILS # (AUTO) 1.1 (0.0-0.4); EOSINOPHILS % 6.1 % (0.0-6.0); HEMATOCRIT 26.3 % (38.2-49.6); HEMOGLOBIN 8.3 g/dL (14.0-18.0); LYMPHOCYTES # (AUTO) 1.5 (1.0-3.2); MEAN CORPUSCULAR HEMOGLOBIN 33.2 pg (28-32); MEAN CORPUSCULAR HGB CONC 31.6 g/dL (31-35); MEAN CORPUSCULAR VOLUME 105.2 fL (81-99); MONOCYTES # (AUTO) 2.4 (0.2-0.8); MONOCYTES % 12.9 % (4.4-11.3); NEUTROPHILS # (AUTO) 13.3 (2.1-6.9); PLATELET COUNT 462 x10e3/uL (140-360); RED CELL DISTRIBUTION WIDTH 20.6 % (11.7-14.4)
--- NOTE | 2019-07-22 15:27 | NUR ---
called Dr. Preciado with WBC results from labs per his request. new order for CBC 07/23/19 and to call grading machine feeder to plan for dialysis tomorrow.
[2019-07-22] MEDS: FAMOTIDINE 20 MG TAB PO SCH (17:11)
[2019-07-22 17:52] LABS: EOSINOPHILS % (MANUAL) 5 % (0-7); LYMPHOCYTES % (MANUAL) 6 % (19-48); MONOCYTES % (MANUAL) 12 % (3.4-9.0); NEUTROPHILS % (MANUAL) 77 % (40-74)
[2019-07-22 17:53] LABS: ANISOCYTOSIS SLIGHT; HYPOCHROMASIA MARKED; RBC MORPHOLOGY COMMENT ABNORMAL
[2019-07-22 17:54] LABS: PLATELET ESTIMATE MODERATELY INCREASED; PLATELET MORPHOLOGY COMMENT MODERATE AGRANULAR
--- NOTE | 2019-07-22 20:40 | NUR ---
PATIENT'S REQUESTED THAT I GIVE THE PATIENT'S NIGHT MEDICATION AT 2200.
--- NOTE | 2019-07-22 20:42 | NUR ---
PATIENT IN STABLE CONDITION, SHOWS NO SIGNS OF DISTRESS. PATIENT'S AT BEDSIDE SITTING IN RECLINER, AND EXPLAINED TO BOTH THAT PATIENT WILL BE GETTING ANTIBIOTIC WITH DIALYSIS IN THE MORNING. BED IS LOCKED IN LOWEST POSITION POSSIBLE, BOTH SIDE RAILS ARE UP, CALL LIGHT WITHIN REACH, WILL CONTINUE TO MONITOR.
[2019-07-22] MEDS: ATORVASTATIN 20 MG TAB PO SCH (22:20)
[2019-07-23] VITALS (8 sets, daily range): BP systolic 140–165; BP diastolic 55–71
[2019-07-23] MEDS: METOPROLOL TARTRATE 50 MG TAB PO SCH ×3 (04:05→16:54)
--- NOTE | 2019-07-23 04:25 | NUR ---
PATIENT'S PAGED THE NURSING STATION TO INFORM ME THAT THE PATIENT WAS BLEEDING FROM THE FINGER FROM A PREVIOUS BLOOD SUGAR PRICK. PATIENT HAD A BANDAGE SEMI COVERED IN BLOOD AND HAD BLOOD ON SHEETS AND PILLOW CASE. THE PATIENT'S ALSO WAS CONCERNED ABOUT THE PATIENT'S BLOOD PRESSURE WHICH READ 184/74. BLOOD PRESSURE WAS RECHECKED AND READ 165/71, PATIENT WAS MEDICATED. THE PATIENT'S SHEETS WERE CHANGED AND REWRAPPED HIS FINGER. WILL CONTINUE TO MONITOR.
--- NOTE | 2019-07-23 04:49 | NUR ---
RECHECKED PATIENT'S BLOOD PRESSURE AND IT IS AT 144/64. PATIENT IS STABLE, NO SIGNS OF DISTRESS, WILL CONTINUE TO MONITOR.
[2019-07-23] MEDS: VANCOMYCIN 250MG/5ML ORAL SOLN PO SCH ×3 (06:46→22:00)
--- NOTE | 2019-07-23 07:15 | NUR ---
PT RESTING QUIETLY AT BEDSIDE ROUND. NO SIGNS OF ANY DISTRESS. SENIOR NETWORK SYSTEMS ENGINEER AT BEDSIDE.
[2019-07-23] MEDS: INSULIN LISPRO 100 UNIT/1 ML 3ML VIAL SQ SCH ×4 (07:30→21:00)
[2019-07-23] MEDS: FAMOTIDINE 20 MG TAB PO SCH ×2 (07:30→16:30)
[2019-07-23] MEDS ORDERED: MEROPENEM 1GM 100 ML IV SCH (08:00)
[2019-07-23] MEDS: SEVELAMER CARBONATE 800 MG TAB PO SCH ×3 (08:00→17:00)
--- NOTE | 2019-07-23 08:00 | NUR ---
DIALYSIS NURSE TO DO DIALYSIS TODAY. MEDICATIONS HELD THIS AM
[2019-07-23] MEDS: BALSAM PERU/CASTOR OIL 60 GM OINT...G. TP SCH (08:15)
[2019-07-23] MEDS ORDERED: HEPARIN SOD (PORCINE) 5,000 UNIT/ML VIAL ONE (08:59)
[2019-07-23] MEDS ORDERED: SODIUM CHLORIDE 0.9% 1000ML 2,000 ML ONE (08:59)
[2019-07-23] MEDS: CLOPIDOGREL BISULFATE 75 MG TAB PO SCH (09:00)
[2019-07-23] MEDS: ASPIRIN 81 MG ENTERIC COATED PO SCH (09:00)
[2019-07-23] MEDS: CALCITRIOL 0.25 MCG CAP PO SCH (09:00)
[2019-07-23] MEDS: PANTOPRAZOLE SOD 40 MG TABEC PO SCH (09:00)
[2019-07-23] MEDS: APIXAB 2.5 MG TABLET PO SCH ×3 (09:00→17:00)
[2019-07-23] MEDS: INSULIN GLARGINE 100 UNITS/ML VIAL SC SCH ×2 (09:00→16:55)
[2019-07-23] MEDS: PRIMIDONE 50 MG TAB PO SCH ×2 (09:00→16:55)
--- NOTE | 2019-07-23 10:15 | NUR ---
DIALYSES NURSE TO DRAW LABS BEFORE DIALYSIS. NURSE STILL WAITING FOR MD TO CALL BACK
--- NOTE | 2019-07-23 10:50 | NUR ---
DIALYSIS STARTED AT THIS TIME. BS 173 WILL GIVE LANTUS AT THIS TIME
[2019-07-23 11:24] LABS: BASOPHILS # (AUTO) 0.1 (0.0-0.1); BASOPHILS % 0.4 % (0.0-1.0); EOSINOPHILS # (AUTO) 0.9 (0.0-0.4); EOSINOPHILS % 6.9 % (0.0-6.0); HEMATOCRIT 36.9 % (38.2-49.6); LYMPHOCYTES # (AUTO) 0.9 (1.0-3.2); LYMPHOCYTES % 7.5 % (18.0-39.1); MEAN CORPUSCULAR HEMOGLOBIN 33.9 pg (28-32); MEAN CORPUSCULAR HGB CONC 32.5 g/dL (31-35); MEAN CORPUSCULAR VOLUME 104.2 fL (81-99); MONOCYTES # (AUTO) 1.2 (0.2-0.8); MONOCYTES % 9.5 % (4.4-11.3); NEUTROPHILS # (AUTO) 9.4 (2.1-6.9); NEUTROPHILS % 75.1 % (38.7-80.0); PLATELET COUNT 363 x10e3/uL (140-360); RED BLOOD COUNT 3.54 x10e6/uL (4.3-5.7); RED CELL DISTRIBUTION WIDTH 20.4 % (11.7-14.4)
--- NOTE | 2019-07-23 12:01 | NUR ---
EDUCATED ABOUT IMM, SIGNED, FILED IN CHART, WITH COPY LEFT WITH FAMILY AT BEDSIDE.
[2019-07-23] MEDS: ATORVASTATIN 20 MG TAB PO SCH (21:00)
[2019-07-24] VITALS (8 sets, daily range): BP systolic 140–174; BP diastolic 52–71
[2019-07-24] MEDS: VANCOMYCIN 250MG/5ML ORAL SOLN PO SCH ×3 (05:55→21:10)
[2019-07-24 06:21] LABS: BASOPHILS # (AUTO) 0.1 (0.0-0.1); BASOPHILS % 0.7 % (0.0-1.0); EOSINOPHILS % 5.6 % (0.0-6.0); HEMATOCRIT 28.3 % (38.2-49.6); HEMOGLOBIN 8.7 g/dL (14.0-18.0); LYMPHOCYTES # (AUTO) 1.6 (1.0-3.2); MEAN CORPUSCULAR HEMOGLOBIN 33.1 pg (28-32); MEAN CORPUSCULAR HGB CONC 30.7 g/dL (31-35); MEAN CORPUSCULAR VOLUME 107.6 fL (81-99); MONOCYTES # (AUTO) 1.9 (0.2-0.8); MONOCYTES % 10.6 % (4.4-11.3); NEUTROPHILS # (AUTO) 13.2 (2.1-6.9); NEUTROPHILS % 73.3 % (38.7-80.0); PLATELET COUNT 479 x10e3/uL (140-360); RED BLOOD COUNT 2.63 x10e6/uL (4.3-5.7); RED CELL DISTRIBUTION WIDTH 20.4 % (11.7-14.4)
[2019-07-24 06:55] LABS: EOSINOPHILS % (MANUAL) 4 % (0-7); LYMPHOCYTES % (MANUAL) 8 % (19-48); MONOCYTES % (MANUAL) 11 % (3.4-9.0); NEUTROPHILS % (MANUAL) 77 % (40-74)
[2019-07-24 06:56] LABS: PLATELET ESTIMATE MODERATELY INCREASED; RBC MORPHOLOGY COMMENT NORMAL
[2019-07-24] MEDS: INSULIN LISPRO 100 UNIT/1 ML 3ML VIAL SQ SCH ×4 (07:30→21:00)
[2019-07-24] MEDS: APIXAB 2.5 MG TABLET PO SCH ×2 (09:00→17:00)
[2019-07-24] MEDS: ASPIRIN 81 MG ENTERIC COATED PO SCH (09:00)
[2019-07-24] MEDS: INSULIN GLARGINE 100 UNITS/ML VIAL SC SCH ×2 (09:00→18:45)
[2019-07-24] MEDS: FAMOTIDINE 20 MG TAB PO SCH ×2 (09:01→18:38)
[2019-07-24] MEDS: SEVELAMER CARBONATE 800 MG TAB PO SCH ×3 (09:01→18:44)
[2019-07-24] MEDS: METOPROLOL TARTRATE 50 MG TAB PO SCH ×2 (09:02→18:44)
[2019-07-24] MEDS: BALSAM PERU/CASTOR OIL 60 GM OINT...G. TP SCH (09:03)
[2019-07-24] MEDS: CALCITRIOL 0.25 MCG CAP PO SCH (09:03)
[2019-07-24] MEDS: PRIMIDONE 50 MG TAB PO SCH ×2 (09:03→18:38)
[2019-07-24] MEDS: CLOPIDOGREL BISULFATE 75 MG TAB PO SCH (09:03)
[2019-07-24] MEDS: PANTOPRAZOLE SOD 40 MG TABEC PO SCH (09:03)
[2019-07-24] MEDS: EPOETIN ALFA 10000 UNIT/ML VIAL SC SCH (09:11)
[2019-07-24] MEDS ORDERED: SODIUM CHLORIDE 0.9% 1000ML 2,000 ML IV PRN (11:00)
[2019-07-24] MEDS ORDERED: HEPARIN SOD (PORCINE) 1000 UNIT/ML SDV IV PRN (11:00)
--- NOTE | 2019-07-24 11:32 | NUR ---
DIALYSIS WAS STARTED NOW
[2019-07-24 13:36] LABS: BASOPHILS # (AUTO) 0.1 (0.0-0.1); BASOPHILS % 0.4 % (0.0-1.0); EOSINOPHILS % 5.6 % (0.0-6.0); HEMATOCRIT 26.5 % (38.2-49.6); HEMOGLOBIN 8.2 g/dL (14.0-18.0); LYMPHOCYTES # (AUTO) 1.1 (1.0-3.2); LYMPHOCYTES % 6.3 % (18.0-39.1); MEAN CORPUSCULAR HEMOGLOBIN 32.9 pg (28-32); MEAN CORPUSCULAR HGB CONC 30.9 g/dL (31-35); MEAN CORPUSCULAR VOLUME 106.4 fL (81-99); MONOCYTES # (AUTO) 1.8 (0.2-0.8); MONOCYTES % 10.7 % (4.4-11.3); NEUTROPHILS % 76.3 % (38.7-80.0); PLATELET COUNT 461 x10e3/uL (140-360); RED BLOOD COUNT 2.49 x10e6/uL (4.3-5.7); RED CELL DISTRIBUTION WIDTH 20.5 % (11.7-14.4)
--- NOTE | 2019-07-24 13:50 | NUR ---
RECEIVED REPORT FROM INTELLIGENCE OPERATIONS, 1.5 LITERS REMOVED. BP 134/60 HR 70
[2019-07-24 13:51] LABS: ANION GAP 13.1 mmol/L (8-16); CREATININE, SERUM 2.51 mg/dL (0.72-1.25); POTASSIUM 4.1 mmol/L (3.5-5.1)
[2019-07-24] MEDS ORDERED: FAMOTIDINE INJ 20 MG in SODIUM CHLORIDE 0.9% 50ML 50 ML IV ONE (19:00)
--- NOTE | 2019-07-24 19:00 | NUR ---
patient received awake, lying quietly in bed. no signs of pain/discomfort noted at this time. pm assessment complete. noted at the bedside. instructed to call for assistance when needed.
[2019-07-24] MEDS ORDERED: DEXAMETHASONE PHOS 10MG INJ 20 MG in SODIUM CHLORIDE 0.9% 50ML 50 ML IV ONE (19:30)
[2019-07-24] MEDS ORDERED: DIPHENHYDRAMINE HCL INJ 25 MG in SODIUM CHLORIDE 0.9% 50ML 50 ML IV ONE (20:00)
[2019-07-24] MEDS ORDERED: IRON DEXTRAN INJ 50 MG in SODIUM CHLORIDE 0.9% 100 ML IV ONE (20:00)
[2019-07-24] MEDS: ATORVASTATIN 20 MG TAB PO SCH (21:00)
--- NOTE | 2019-07-24 21:00 | NUR ---
attempted to place iv and draw ordered cbc but unable to at this time. notified. order noted to give ordered iron with hemodialysis. cbc reordered for am.
[2019-07-24] MEDS: HYDROCODONE/APAP 7.5MG-325MG 1 EA TAB PO PRN (21:10)
[2019-07-25] VITALS (8 sets, daily range): BP systolic 133–172; BP diastolic 58–76
--- NOTE | 2019-07-25 05:00 | NUR ---
patient appears to be resting quietly. no c/o pain noted throughout the night. remains at the bedside.
[2019-07-25] MEDS: VANCOMYCIN 250MG/5ML ORAL SOLN PO SCH ×3 (05:50→22:01)
[2019-07-25 06:43] LABS: BASOPHILS # (AUTO) 0.1 (0.0-0.1); BASOPHILS % 0.6 % (0.0-1.0); EOSINOPHILS # (AUTO) 0.8 (0.0-0.4); EOSINOPHILS % 4.8 % (0.0-6.0); HEMATOCRIT 26.1 % (38.2-49.6); HEMOGLOBIN 8.3 g/dL (14.0-18.0); LYMPHOCYTES # (AUTO) 1.6 (1.0-3.2); LYMPHOCYTES % 9.8 % (18.0-39.1); MEAN CORPUSCULAR HEMOGLOBIN 33.9 pg (28-32); MEAN CORPUSCULAR HGB CONC 31.8 g/dL (31-35); MEAN CORPUSCULAR VOLUME 106.5 fL (81-99); MONOCYTES # (AUTO) 1.7 (0.2-0.8); MONOCYTES % 10.4 % (4.4-11.3); NEUTROPHILS # (AUTO) 12.4 (2.1-6.9); NEUTROPHILS % 73.7 % (38.7-80.0); PLATELET COUNT 468 x10e3/uL (140-360); RED BLOOD COUNT 2.45 x10e6/uL (4.3-5.7); RED CELL DISTRIBUTION WIDTH 19.9 % (11.7-14.4)
[2019-07-25] MEDS: INSULIN LISPRO 100 UNIT/1 ML 3ML VIAL SQ SCH ×4 (07:30→21:00)
[2019-07-25 08:05] LABS: BAND NEUTROPHILS % (MANUAL) 2 %; EOSINOPHILS % (MANUAL) 8 % (0-7); LYMPHOCYTES % (MANUAL) 12 % (19-48); MONOCYTES % (MANUAL) 13 % (3.4-9.0); NEUTROPHILS % (MANUAL) 62 % (40-74)
[2019-07-25 08:06] LABS: ANISOCYTOSIS MODERATE; POIKILOCYTOSIS SLIGHT; POLYCHROMASIA FEW
[2019-07-25 08:07] LABS: PLATELET ESTIMATE SLIGHTLY INCREASED; PLATELET MORPHOLOGY COMMENT FEW LARGE; RBC MORPHOLOGY COMMENT ABNORMAL
[2019-07-25] MEDS: ASPIRIN 81 MG ENTERIC COATED PO SCH (08:20)
[2019-07-25] MEDS: APIXAB 2.5 MG TABLET PO SCH ×2 (08:20→17:00)
[2019-07-25] MEDS: INSULIN GLARGINE 100 UNITS/ML VIAL SC SCH ×2 (08:20→18:00)
[2019-07-25] MEDS: SEVELAMER CARBONATE 800 MG TAB PO SCH ×3 (09:58→17:59)
[2019-07-25] MEDS: FAMOTIDINE 20 MG TAB PO SCH ×2 (09:58→17:59)
[2019-07-25] MEDS: BALSAM PERU/CASTOR OIL 60 GM OINT...G. TP SCH (09:59)
[2019-07-25] MEDS: CLOPIDOGREL BISULFATE 75 MG TAB PO SCH (09:59)
[2019-07-25] MEDS: PRIMIDONE 50 MG TAB PO SCH ×2 (09:59→17:59)
[2019-07-25] MEDS: PANTOPRAZOLE SOD 40 MG TABEC PO SCH (09:59)
[2019-07-25] MEDS: METOPROLOL TARTRATE 50 MG TAB PO SCH ×2 (09:59→17:59)
[2019-07-25] MEDS: CALCITRIOL 0.25 MCG CAP PO SCH (09:59)
--- NOTE | 2019-07-25 14:11 | NUR ---
EDUCATED ABOUT IMM, SIGNED, FILED IN CHART, WITH COPY LEFT WITH FAMILY AT BEDSIDE.
--- NOTE | 2019-07-25 19:45 | NUR ---
PATIENT IS IN STABLE CONDITION, NO SIGNS OF DISTRESS NOTED. FAMILY MEMBER AT BEDSIDE AND PATIENT HAS NO COMPLAINTS OF PAIN AT THIS TIME. PATIENT AND ARE AWARE THAT HE WILL BE GETTING IV MEDICATIONS WITH HEMODIALYSIS ON TUESDAY. BOTH SIDE RAILS ARE UP, CALL LIGHT WITHIN REACH, WILL CONTINUE TO MONITOR.
[2019-07-25] MEDS: ATORVASTATIN 20 MG TAB PO SCH (22:00)
[2019-07-26] VITALS (7 sets, daily range): BP systolic 125–174; BP diastolic 43–75
[2019-07-26] MEDS: METOPROLOL TARTRATE 50 MG TAB PO SCH ×3 (01:09→17:21)
[2019-07-26] MEDS: HYDROCODONE/APAP 7.5MG-325MG 1 EA TAB PO PRN (03:26)
--- NOTE | 2019-07-26 05:08 | NUR ---
PATIENT'S CALLED ME INTO ROOM BECAUSE THE PATIENT HAD BROKEN OUT INTO A COLD SWEAT AND FELT CLAMMY AND VOICED THAT HE WAS HOT. CHECKED THE PATIENT'S BLOOD SUGAR AND IT WAS 138, I FOLLOWED UP WITH BY CHECKING THE PATIENT'S TEMPERATURE WHICH READ 96.8. AFTER DRYING THE PATIENT OFF AND CHANGING HIS PAD, SHEETS, AND GOWN, PATIENT VOICED THAT HE WAS OK. WILL CONTINUE TO MONITOR THE SITUATION.
[2019-07-26] MEDS: VANCOMYCIN 250MG/5ML ORAL SOLN PO SCH ×3 (06:28→22:11)
--- NOTE | 2019-07-26 07:45 | NUR ---
walking rounds complete and patient in sleeping , caregiver at bedside. No IV access
[2019-07-26] MEDS: FAMOTIDINE 20 MG TAB PO SCH ×2 (08:59→17:20)
[2019-07-26] MEDS: SEVELAMER CARBONATE 800 MG TAB PO SCH ×3 (09:00→17:22)
[2019-07-26] MEDS: INSULIN LISPRO 100 UNIT/1 ML 3ML VIAL SQ SCH ×4 (09:00→21:00)
[2019-07-26] MEDS: APIXAB 2.5 MG TABLET PO SCH ×2 (09:00→17:21)
[2019-07-26] MEDS: EPOETIN ALFA 10000 UNIT/ML VIAL SC SCH (09:00)
[2019-07-26] MEDS: ASPIRIN 81 MG ENTERIC COATED PO SCH (09:00)
--- NOTE | 2019-07-26 09:00 | NUR ---
Patient taking meds with no problem, dialysis nurse here to begin HD, Merrem to be given after dialysis according to order, giving Iron infusion with premeds after dialysis because there is no IV access.
[2019-07-26] MEDS: PANTOPRAZOLE SOD 40 MG TABEC PO SCH (09:02)
[2019-07-26] MEDS: PRIMIDONE 50 MG TAB PO SCH ×2 (09:02→17:22)
[2019-07-26] MEDS: CALCITRIOL 0.25 MCG CAP PO SCH (09:02)
[2019-07-26] MEDS: CLOPIDOGREL BISULFATE 75 MG TAB PO SCH (09:02)
[2019-07-26] MEDS: INSULIN GLARGINE 100 UNITS/ML VIAL SC SCH ×2 (09:03→17:26)
[2019-07-26] MEDS: BALSAM PERU/CASTOR OIL 60 GM OINT...G. TP SCH (09:03)
[2019-07-26] MEDS ORDERED: ALBUMIN 25% 12.5GM 0.25 GM/ML BTL IV PRN (10:00)
[2019-07-26] MEDS ORDERED: MANNITOL 25% 12.5GM/50 ML VIAL IV PRN (10:00)
[2019-07-26] MEDS ORDERED: SODIUM CHLORIDE 0.9% 250ML 500 ML IV PRN (10:00)
--- NOTE | 2019-07-26 10:00 | NUR ---
Dialysis nurse called Dr. Encarnacion about the Iron infusion stating that she was not comfortable giving so many meds, the dialysis nurse beet end supervisor was at the bedside taking to the nurse about the meds, the doctor called back and discontinued the iron but reordering another iron infusion that did not need premed. The nurse was good with this order.
[2019-07-26 10:43] LABS: BASOPHILS # (AUTO) 0.1 (0.0-0.1); BASOPHILS % 0.5 % (0.0-1.0); EOSINOPHILS # (AUTO) 0.8 (0.0-0.4); EOSINOPHILS % 5.8 % (0.0-6.0); HEMATOCRIT 24.4 % (38.2-49.6); HEMOGLOBIN 7.6 g/dL (14.0-18.0); LYMPHOCYTES # (AUTO) 1.4 (1.0-3.2); LYMPHOCYTES % 9.6 % (18.0-39.1); MEAN CORPUSCULAR HEMOGLOBIN 33.6 pg (28-32); MEAN CORPUSCULAR HGB CONC 31.1 g/dL (31-35); MONOCYTES # (AUTO) 1.4 (0.2-0.8); NEUTROPHILS # (AUTO) 10.6 (2.1-6.9); NEUTROPHILS % 73.5 % (38.7-80.0); PLATELET COUNT 447 x10e3/uL (140-360); RED BLOOD COUNT 2.26 x10e6/uL (4.3-5.7); RED CELL DISTRIBUTION WIDTH 19.8 % (11.7-14.4)
[2019-07-26 11:09] LABS: ALBUMIN 1.7 g/dL (3.5-5.0); ALBUMIN/GLOBULIN RATIO 0.3 (0.8-2.0); ANION GAP 16.8 mmol/L (8-16); CREATININE, SERUM 4.89 mg/dL (0.72-1.25); POTASSIUM 4.8 mmol/L (3.5-5.1)
[2019-07-26] MEDS ORDERED: SODIUM FERRIC GLUCONATE COMPLX 125 MG in SODIUM CHLORIDE 0.9% 100 ML IV PRN (12:00)
[2019-07-26] MEDS ORDERED: SODIUM FERRIC GLUCONATE COMPLX 125 MG in SODIUM CHLORIDE 0.9% 100 ML 100 ML IV SCH (12:00)
--- NOTE | 2019-07-26 13:00 | NUR ---
dialysis is complete and there was 1600cc taken off patient, the IV antibiotic was given during the dialysis treatment, the doctor was notified and the antibiotic was not given again despite the error. The iron was given and the patient complained of itching all over his body, some red hives noted. The used cool cloth to comfort.
--- NOTE | 2019-07-26 13:55 | NUR ---
Nutrition Follow-up Note RD Recommendation for Physician: -Continue diet as ordered -Pts requested for Nepro BID. Plan of Care: RD following, monitoring for tolerance and adequacy Nutrition reason for involvement: Follow up Primary Diagnose(s): AMS, CKD stage 5, gangrene of right foot PMH: End-stage renal disease, on hemodialysis Tuesday, , Tuesday. Hypertension. Dyslipidemia. Paroxysmal atrial fibrillation. Diabetes type, Coronary artery disease. Congestive heart failure. Peripheral vascular disease, status post aortoiliac stent and left SFA revascularization. Gangrene of the right foot. Ht:73 in Wt:186lb BMI: kg/m2 IBW:lb +/-10% RD Assessment: 07/26: Visited pt in the room. Pt was receiving HD. Per , pt has had good appetite with PO intake >50%. Family has been assisting with meal. No complain of nausea or vomiting. Pt denied any chewing or swallowing difficulty. requested for Nepro BID as pt was taking those at home. Will continue to monitor and follow. (07/21/2019) Chart reviewed. Labs and meds reviewed. Initial encounter with Patient and family present. Pt denies having any difficulty chewing or swallowing nor has any N,V,D. Pt denies any significant wt changes Current Diet: 1800 ADA Malnutrition Evaluation (07/21/2019) The patient does not meet criteria for a specified degree of malnutrition at this time. Will re-evaluate at follow-up as appropriate. Diet Education Needs Assessment: Diet education not indicated due to mental status and confusion. Nutrition Care Level: Low Signed: Gabi Greene, MS, RD, LD
[2019-07-26] MEDS ORDERED: IRON DEXTRAN INJ 50 MG in SODIUM CHLORIDE 0.9% 100 ML IV ONE (14:00)
[2019-07-26] MEDS ORDERED: DEXAMETHASONE PHOS 10MG INJ 20 MG in SODIUM CHLORIDE 0.9% 50ML 50 ML IV ONE (14:00)
[2019-07-26] MEDS ORDERED: DIPHENHYDRAMINE HCL INJ 25 MG in SODIUM CHLORIDE 0.9% 50ML 50 ML IV ONE (14:00)
[2019-07-26] MEDS ORDERED: FAMOTIDINE INJ 20 MG in SODIUM CHLORIDE 0.9% 50ML 50 ML IV ONE (14:00)
[2019-07-26] MEDS ORDERED: IRON DEXTRAN INJ 500 MG in SODIUM CHLORIDE 0.9% 500ML 500 ML IV PRN (14:00)
--- NOTE | 2019-07-26 15:00 | NUR ---
The patient now has a new IV in the left forearm , 22g SLIV.
[2019-07-26] MEDS ORDERED: DIPHENHYDRAMINE HCL 25 MG CAP PO PRN (16:15)
--- NOTE | 2019-07-26 18:55 | NUR ---
walking rounds complete, at the bedside, patient is calm and resting.
--- NOTE | 2019-07-26 20:00 | NUR ---
PATIENT IN STABLE CONDITION RESTING WITH BOTH EYES CLOSED, NO SIGNS OF DISTRESS NOTED. AT BEDSIDE AND NO COMPLAINTS OF PAIN AT THIS TIME. BED IS LOCKED IN LOWEST POSITION, BOTH SIDE RAILS ARE UP, CALL LIGHT WITHIN REACH, WILL CONTINUE TO MONITOR.
[2019-07-26] MEDS: ATORVASTATIN 20 MG TAB PO SCH (22:11)
[2019-07-27] VITALS: BP 163/78
[2019-07-27 04:00] VITALS: BP 176/85
[2019-07-27] MEDS: METOPROLOL TARTRATE 50 MG TAB PO SCH ×2 (04:15→09:00)
[2019-07-27] MEDS: VANCOMYCIN 250MG/5ML ORAL SOLN PO SCH ×2 (06:38→14:13)
[2019-07-27] MEDS: INSULIN LISPRO 100 UNIT/1 ML 3ML VIAL SQ SCH ×2 (07:30→11:30)
[2019-07-27 07:50] LABS: BASOPHILS # (AUTO) 0.1 (0.0-0.1); BASOPHILS % 0.7 % (0.0-1.0); EOSINOPHILS # (AUTO) 0.9 (0.0-0.4); EOSINOPHILS % 5.2 % (0.0-6.0); HEMATOCRIT 30.4 % (38.2-49.6); HEMOGLOBIN 9.2 g/dL (14.0-18.0); LYMPHOCYTES # (AUTO) 1.8 (1.0-3.2); LYMPHOCYTES % 9.7 % (18.0-39.1); MEAN CORPUSCULAR HEMOGLOBIN 33.6 pg (28-32); MEAN CORPUSCULAR HGB CONC 30.3 g/dL (31-35); MEAN CORPUSCULAR VOLUME 110.9 fL (81-99); NEUTROPHILS # (AUTO) 13.1 (2.1-6.9); NEUTROPHILS % 72.6 % (38.7-80.0); PLATELET COUNT 442 x10e3/uL (140-360); RED BLOOD COUNT 2.74 x10e6/uL (4.3-5.7); RED CELL DISTRIBUTION WIDTH 20.1 % (11.7-14.4)
[2019-07-27] MEDS: SEVELAMER CARBONATE 800 MG TAB PO SCH ×2 (08:00→12:00)
[2019-07-27 08:53] VITALS: BP 153/69
[2019-07-27] MEDS: PANTOPRAZOLE SOD 40 MG TABEC PO SCH (09:00)
[2019-07-27] MEDS: PRIMIDONE 50 MG TAB PO SCH (09:00)
[2019-07-27] MEDS: CLOPIDOGREL BISULFATE 75 MG TAB PO SCH (09:00)
[2019-07-27] MEDS: INSULIN GLARGINE 100 UNITS/ML VIAL SC SCH (09:00)
[2019-07-27] MEDS: CALCITRIOL 0.25 MCG CAP PO SCH (09:00)
[2019-07-27] MEDS: APIXAB 2.5 MG TABLET PO SCH (09:38)
[2019-07-27] MEDS: ASPIRIN 81 MG ENTERIC COATED PO SCH (09:38)
[2019-07-27] MEDS: FAMOTIDINE 20 MG TAB PO SCH (09:38)
[2019-07-27 09:50] VITALS: BP 153/69
[2019-07-27 10:46] LABS: EOSINOPHILS % (MANUAL) 4 % (0-7); LYMPHOCYTES % (MANUAL) 10 % (19-48); NEUTROPHILS % (MANUAL) 86 % (40-74)
[2019-07-27 10:47] LABS: PLATELET ESTIMATE MODERATELY INCREASED; PLATELET MORPHOLOGY COMMENT FEW LARGE; RBC MORPHOLOGY COMMENT NORMAL
[2019-07-27 12:00] VITALS: BP 138/59
--- NOTE | 2019-07-27 12:16 | NUR ---
EDUCATED ABOUT IMM, SIGNED, FILED IN CHART, WITH COPY LEFT WITH FAMILY AT BEDSIDE.
[2019-07-27] MEDS: BALSAM PERU/CASTOR OIL 60 GM OINT...G. TP SCH (12:33)
[2019-07-27 16:25] VITALS: BP 139/68
[2019-07-27] MEDS: HYDROCODONE/APAP 7.5MG-325MG 1 EA TAB PO PRN (16:27)
--- NOTE | 2019-07-27 17:30 | NUR ---
PT DCD HOME ,IV DCD WITHOUT REDNESS OR SWELLING,[facility] TRANSPORTED PT HOME O2 2L NC IN PLACE
--- NOTE | 2019-07-28 00:01 | Consultation ---
DATE OF CONSULTATION: 07/24/[address] Orion Preciado. HISTORY OF PRESENT ILLNESS: Mr. Odonnell is a 79-year-old white male, who has been referred to me for evaluation of anemia. Most of the history has been obtained from my review of the records as the patient has not been able to communicate, some communication with the of the patient. SOCIAL HISTORY: Could not be obtained. FAMILY HISTORY: Could not be obtained. ALLERGIES: NONE. MEDICATIONS: At this time: 1. Albuterol. 2. Meropenem. 3. Sodium chloride. 4. Ondansetron. 5. Aspirin. 6. Atorvastatin. 7. Calcitriol. 8. Plavix. 9. Metoprolol. 10. Nitroglycerin. 11. Protonix. 12. Sevelamer. 13. Erythropoietin. 14. Insulin. 15. Nitroglycerin. 16. Pepcid. 17. Apixaban. 18. Vancomycin. 19. Tylenol. REVIEW OF SYSTEMS: HEENT: Normal. CARDIAC: History of hypertension, hyperlipidemia, and cardiac arrhythmias. RESPIRATORY: History of COPD. GI: Normal. : Chronic renal failure. MUSCULOSKELETAL: Bed confined. STEEL DIE PRESS SET UP OPERATOR: Could not be examined properly. EXTREMITIES: The patient has had gangrene of the right foot. The patient's right upper extremity above the elbow is cut off, has an accident when he was young. PHYSICAL EXAMINATION: GENERAL: A moderately built male, not alert. Anemic. NECK: No palpable adenopathy. HEART: Within normal limits. LUNGS: Clear. ABDOMEN: Obese. RECTAL: Could not be done. He is in diapers. CENTRAL NERVOUS SYSTEM: Could not be done. EXTREMITIES: The right foot is bandaged. LABORATORY DATA: Hemoglobin 8.2, hematocrit 26.5, WBC of 17, and platelets of 461. BUN 25, creatinine 2.5, sodium 137, potassium 4.1, chloride 99, CO2 of 22, INR 1.4, bilirubin 0.5, SGOT 15, SGPT 19, alkaline phosphatase high at 326, RDW high at 20.7, MCHC is low at 30.7. IMPRESSION: 1. Anemia of chronic disease. 2. Leukocytosis. 3. End-stage renal disease. 4. History of hypertension. 5. Episodes of hypotension. 6. History of peripheral artery disease. 7. History of hyperlipidemia. 8. History of coronary artery disease. 9. History of congestive heart failure. 10. Gangrene of the right foot. 11. Carotid endarterectomy. 12. Iron deficiency anemia. 13. Secondary thrombocythemia. 14. Hyperproteinemia. 15. Hyperglobulinemia. 16. Hypoalbuminemia. PLAN, COMMENTS, AND SUGGESTIONS: Suggest INFeD. Suggest quantitation of immunoglobulins. The patient had quantitation of immunoglobulins to rule out possibility of multiple myeloma. However, this patient has polyclonal gammopathy with IgG being high at 2585 and also IgA high at 681. The patient is being discharged. Thank you very much for allowing me to participate in the management of this patient. MD HALEIGH Juárez/MODL /[id number] cc: Varinder Silvestre MD
--- NOTE | 2019-07-28 09:48 | Discharge Summary ---
CONSULTANTS: 1. Dr. Varinder Silvestre. 2. Dr. Valarie Orozco. FINAL DIAGNOSES: 1. Leukocytosis could be secondary to reactive leukemoid reaction versus hematologic disorder. 2. Right foot gangrene, infected diabetic ulcer, resolved. Resolved infection but remain with necrosis, dry. No drainage. 3. Pressure ulcer of the right heel. 4. End-stage renal disease, on dialysis. 5. Multiple chronic baseline medical problems. SUMMARY: This is a 79-year-old male medically debilitated, came into the hospital with multiple complaints. The patient apparently was having some altered mental status, increased from baseline. The patient also has worsening right heel wound. He has also had right foot dry gangrene. The patient is getting treatment. He has also received dialysis. Leukocytosis noticed on admission. The patient is otherwise stable however. There is no shift. Neutrophil level was normal. His white cell count went from 21,000 down to 14,000 and then up again. The patient has multiple workup done. Dr. Wray consulted. The patient has some immunology workup including IgG 2585, IgA of 681, and IgM 101. The patient also had a CT scan of brain, chest x-ray otherwise unremarkable. He had been receiving dialysis. The patient is stable today, afebrile. Again, leukocytosis without a left shift. The patient want to go home and I agreed. His next dialysis is tomorrow. The patient did have some low blood pressure on dialysis, but overall the patient is stable and this is not new. The patient is stable, discharged home today. Follow up in clinic in approximately 1 to 2 weeks and may repeat the patient's blood work. MD KARY Eaton/SINA /[id number]
== END 2019-07-27 17:30 | disposition home or self-care (01) | DRG 689 ==
LOC: ER 15:18 → ERHOLD 19:02 → MED/SURG3 21:17
PROVIDERS: ADMIT Internal Medicine; ATTEND Internal Medicine
PROC: 5A1D70Z Performance of Urinary Filtration, Intermittent, Less than 6 Hours Per Day (ICD-10-PCS; principal; 2019-07-21)
PROC: 5A1D70Z Performance of Urinary Filtration, Intermittent, Less than 6 Hours Per Day (ICD-10-PCS; 2019-07-23)
PROC: 5A1D70Z Performance of Urinary Filtration, Intermittent, Less than 6 Hours Per Day (ICD-10-PCS; 2019-07-26)
DX: N39.0 Urinary tract infection, site not specified (principal); G92 Toxic encephalopathy; N18.6 End stage renal disease; I13.2 Hypertensive heart and chronic kidney disease with heart failure and with stage 5 chronic kidney disease, or end stage renal disease; E11.9 Type 2 diabetes mellitus without complications; I73.9 Peripheral vascular disease, unspecified; E11.22 Type 2 diabetes mellitus with diabetic chronic kidney disease; I50.9 Heart failure, unspecified; Z99.2 Dependence on renal dialysis; F03.90 Unspecified dementia, unspecified severity, without behavioral disturbance, psychotic disturbance, mood disturbance, and anxiety; K21.9 Gastro-esophageal reflux disease without esophagitis; I25.10 Atherosclerotic heart disease of native coronary artery without angina pectoris; Z95.5 Presence of coronary angioplasty implant and graft; D63.8 Anemia in other chronic diseases classified elsewhere; D63.1 Anemia in chronic kidney disease
CPT/HCPCS: 36415; 70450; 71045; 80048; 80053; 80061; 81001; 82150; 82550; 82553; 82784; 82948; 83605; 83690; 83735; 83880; 84100; 84484; 85025; 85610; 85730; 86706; 87040; 87086; 90962; 93005; 99284; J1100; J1200; J1644; J1750; J1815; J2916; J3370; J7030; J7040; J7050; J7799; Q4081